=== PATIENT | male | born 1970 | race Caucasian/White ===

== ENCOUNTER → 2017-03-16 | Outpatient (CLI) | payer OTHER ==
[~2017-03-16] MED LIST: AMT50 PO; BUPR20DI TOP; DPTSTI200; FENO1TAB PO; GADAVIST IV PRN; LISI-725 PO; META1TAB22 PO; OXYC15TA89 PO; OXYC20TA50 PO; PROC1TAB5 PO; SIMV20TA2 PO; VERA120T15 PO; VERA1CAP5 PO
--- NOTE | 2017-03-16 19:23 | DIAGNOSTIC IMAGING REPORT ---
MRI OF THE BRAIN WITHOUT AND WITH IV CONTRAST CLINICAL HISTORY: CHRONIC PAIN SYNDROME, UNSPECIFIED COMPARISON STUDY: No previous studies for comparison. TECHNIQUE: Utilizing a 1.5 Margot magnet and dedicated coil, multiplanar, multiecho imaging of the brain was performed pre and postcontrast administration. IV administration of 12.5 mL of Gadavist contrast was uneventful. FINDINGS: Diffusion-weighted images are normal. Extensive postoperative changes to the sinuses. Signal characteristics of the cerebellar as well as cerebral hemispheres appear unremarkable. No evidence for abnormal postcontrast enhancement. IMPRESSION: 1. Negative MRI brain. 2. Postoperative changes to the sinuses. Electronically signed by: Wood Capellan M.D. 03/16/2017 7:21 PM Dictated Date/Time: 03/16/2017 7:19 PM
== END | disposition home or self-care (01) ==
LOC: C.MRI 17:22
PROVIDERS: ATTEND Nurse Practitioner Family
DX: G89.4 Chronic pain syndrome (principal); H54.7 Unspecified visual loss; G43.909 Migraine, unspecified, not intractable, without status migrainosus

== ENCOUNTER 2020-05-26 07:55 | Inpatient (IN) ==
--- NOTE | 2020-05-12 16:21 | PAT Medication Instructions ---
Medication Instructions Date of Service May 12, 2020 Home Medications Medication Instructions Recorded cyclobenzaprine 10 mg PO Q8H PRN #21 tab 10/30/18 ascorbic acid (vitamin C) [Vitamin C] 250 mg PO QDL atorvastatin 40 mg PO QAM cyclobenzaprine 10 mg PO Q8H PRN fenofibrate 160 mg PO QAM folic acid 0.8 mg PO QAM lisinopril 20 mg PO QPM testosterone cypionate 1 dose IM DIRECTED Continue as directed testosterone cypionate 1 dose IM DIRECTED (unless surgeon states otherwise; also do not take AM of surgery) STOP taking 48 hours before surgery fenofibrate 160 mg PO QAM DO NOT take the morning of surgery ascorbic acid (vitamin C) [Vitamin C] 250 mg PO QDL cyclobenzaprine 10 mg PO Q8H PRN folic acid 0.8 mg PO QAM Take morning of surgery With a small sip of water, OTHERWISE NOTHING TO EAT OR DRINK AFTER MIDNIGHT: atorvastatin 40 mg PO QAM Take evening before surgery cyclobenzaprine 10 mg PO Q8H PRN (if needed) lisinopril 20 mg PO QPM Other Notes If you have any questions please call us at [phone] or [phone] or [phone] or [phone]
--- NOTE | 2020-05-13 14:37 | Anesthesiology Consultation ---
Date of Service May 13, 2020 Assessment & Plan (1) Encounter for pre-operative examination: Chart Review Chart Review: Pending: Refer to Additional Notes / Consult section (pending surgeon ordered PCP clearance scheduled 05/17/preop Covid testing results from 05/21) and Patient seen in Pre Admission Testing Awaiting surgeon ordered PCP clearance scheduled 05/17/20 Per PAT appt on 05/13/20, denies any recent travel. No known Covid positive co ntacts or Covid related symptoms. Scheduled for preop Covid testing 05/21/20.. Educated on importance of self quarantining, social distancing and wearing mask in public both for the patient and household contacts. Teaching & Discussion Pre-Anesthesia Teaching/Discussion Notes: Instructed NPO after midnight before surgery,except medications with 15 cc of water. Medication instructions provided according to the [facility] guidelines. History Surgery Operation Date: 05/26/20 09:35 Proposed Procedures p L3-S1 Decompression and Fusion; Spinal Cord Monitoring - Maciel Gutierrez DO Height/Weight Height: 6 ft 6 in Weight: 134.4 kg Allergies Allergy/AdvReac Type Severity Reaction Status Date / Time iron AdvReac Severe ELEVATES Verified 05/10/20 12:17 LIVER ENZYMES TO DANGEROUS LEVELS lorazepam [From Ativan] AdvReac Severe HALLUCINATI Verified 05/10/20 12:17 ONS morphine AdvReac Severe HALLUCINATI Verified 05/10/20 12:17 ONS ROUGH CLEAR TAPE Allergy Intermediate BLISTERS Uncoded 05/10/20 12:17 SKIN Medications Home Medications Medication Instructions Recorded Confirmed Last Taken ascorbic acid (vitamin C) [Vitamin 250 mg PO QDL 10/30/18 05/10/20 10/30/18 C] atorvastatin 40 mg PO QAM 10/30/18 05/10/20 10/29/18 cyclobenzaprine 10 mg PO Q8H PRN #21 tab 10/30/18 05/10/20 Unknown fenofibrate 160 mg PO QAM 10/30/18 05/10/20 10/30/18 folic acid 0.8 mg PO QAM 10/30/18 05/10/20 10/30/18 lisinopril 20 mg PO QPM 10/30/18 05/10/20 10/30/18 testosterone cypionate 1 dose IM DIRECTED 10/30/18 05/10/20 Unknown gabapentin 100 mg PO TID 05/13/20 05/13/20 Unknown Past Medical History Medical History (Updated 05/13/20 @ 14:58 by Celina Lee PA-C) Chronic pain History of depression Pain aggrevates depression and anxiety- currently stable and controlled History of migraine Stable- follows with neuro for Botox HTN (hypertension) Hyperlipemia Osteoarthritis 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 Exercise / Class Metabolic Activity II 4-5 Yardwork/Stairs/Walk up hill (one flight of stairs- no chest pain or SOB) Past Family History Family History Other No family history of adverse response to anesthesia Past Surgical History Surgical History History of esophagogastroduodenoscopy (EGD) History of hip replacement Rt History of knee replacement BL History of partial nephrectomy History of repair of hiatal hernia History of sinus surgery removal of benign mass History of surgery on left wrist Fusion History of tonsillectomy and adenoidectomy Past Anesthesia History No Hx of Anesthesia Complications and No Family Hx of Anesthesia Complications History of PONV No Hx of PONV and No Hx of Motion Sickness Social History Smoking Status: Former smoker Do You Dip or Chew Tobacco: No Smoking End Date: 4 years ago Hx Alcohol Use: No Hx Substance Use: No substance use type: does not use Review of Systems Snoring- no witnessed apnea- no hx of sleep study. Increased back pain can cause SOB at times- no SOB with exertion or at rest without back pain Patient denies chest pain, dyspnea on exertion, reflux, cough, wheezing, palpitations. No hx of seizures, stroke, [place]. No hx of blood clots or blood transfusions Physical Exam Vital Signs VITALS BP 147/90 P 74 TEMP 97.5 SP02 97% RESP 16 Constitutional no acute distress ENMT Mouth: no TMJ clicking Thyromental Distance: < 3.5 Finger Breadths (3.0) Mallampati Class: III Full upper denture Partial lower denture Neck + thick neck; neck extension not limited Respiratory normal respiratory effort; no respiratory distress Auscultation: lungs clear to auscultation bilaterally; no wheezes Cardiovascular Rate/Rhythm: regular rate and regular rhythm Heart Sounds: no murmur Vessels: no carotid bruit Musculoskeletal Spine: no pain with cervical ROM Neurologic moves all extremities Psychiatric Orientation: alert Testing Laboratory Results PT 10.7 Seconds (9.0-12.0) 05/13/20 14:51 INR 1.0 (0.9-1.1) 05/13/20 14:51 APTT 24.9 Seconds (21.0-31.0) 05/13/20 14:51 Blood Type A Positive 05/13/20 14:51 Antibody Screen NEGATIVE 05/13/20 14:51 04/29/2020 = WBC: 5.81 H/H: 12.7/38.8 PLATELETS: 255 SODIUM: 142 POTASSIUM: 4.0 CHLORIDE: 103 CO2: 28 BUN: 13 CREATININE: 1.0 GLUCOSE: 106 UA: Negative. Urine culture shows less than 10,000 colonies/mLmixed skin luh Electrocardiogram Date: 05/13/20 Findings: + NSR @ (73) Chest X-Ray Date: 05/13/20 Findings: + NAD Mild elevation of the left hemidiaphragm. There are left basilar atelectatic changes.
--- NOTE | 2020-05-13 15:30 | XRay Report ---
XR chest Pre-admission PA/Lat CLINICAL HISTORY: Preoperative chest COMPARISON STUDY: No previous studies for comparison. FINDINGS: The heart is normal in size. There is mild elevation left hemidiaphragm. There are left bas ilar atelectatic changes. There is no failure. There is no focal pulmonary consolidation. There are n o pleural effusions.[ IMPRESSION: Mild elevation of the left hemidiaphragm. No active disease in the chest. ACT 112: Negative or not required by law. Electronically signed by: Gui Vogel M.D. 05/13/2020 3:29 PM
[2020-05-13 15:59] LABS: Partial Thromboplastin Ratio 0.9; Partial Thromboplastin Time 24.9 Seconds (21.0-31.0); Prothrombin Time 10.7 Seconds (9.0-12.0)
--- NOTE | 2020-05-14 05:56 | Electrocardiogram Report ---
Test Reason : Blood Pressure : / mmHG Vent. Rate : 073 BPM Atrial Rate : 073 BPM P-R Int : 194 ms QRS Dur : 094 ms QT Int : 378 ms P-R-T Axes : 040 -02 020 degrees QTc Int : 416 ms Normal sinus rhythm Normal ECG No previous ECGs available Confirmed by Lalo Covarrubias ([id number]) on 05/14/2020 5:55:58 AM Referred By: Maciel Gutierrez Confirmed By:Lalo Covarrubias
[~2020-05-26 07:55] MED LIST changes: +ACETAMINOPHEN 500 MG TAB PO SCH; -AMT50 PO; -BUPR20DI TOP; +CEFAZOLIN 3000MG 72.5 ML IV SCH; +CeleBREX 200 MG CAP PO SCH; -DPTSTI200; -FENO1TAB PO; +GABAPENTIN 300 MG CAP PO SCH; +GABAPENTIN 600 MG DOSE PO SCH; -GADAVIST IV PRN; -LISI-725 PO; +LR 15ML/HR IV SCH; -META1TAB22 PO; -OXYC15TA89 PO; -OXYC20TA50 PO; -PROC1TAB5 PO; -SIMV20TA2 PO; -VERA120T15 PO; -VERA1CAP5 PO
[2020-05-26] MEDS ORDERED: MIDAZOLAM HCL 1 MG/ML 2ML VIAL ONE (08:38)
[2020-05-26] MEDS ORDERED: PROPOFOL IV EMULSION 10 MG/ML 20 ML VIAL IV ONE (08:38)
[2020-05-26] MEDS ORDERED: LIDOCAINE HCL 2% 2 ML VIAL/AMP(20MG/ML) INFIL ONE (08:38)
[2020-05-26] MEDS ORDERED: ROCURONIUM BROMIDE 10 MG/ML 5 ML VIAL IV ONE (08:38)
[2020-05-26] MEDS ORDERED: fentaNYL citrate 100 MCG/2 ML VIAL ONE (08:38)
[2020-05-26] MEDS ORDERED: ONDANSETRON INJ 2 MG/ML 2 ML VIAL ONE (08:38)
--- NOTE | 2020-05-26 09:06 | History & Physical Bridge Note ---
Date of Service May 26, 2020 History & Physical Bridge Note I have examined the patient, reviewed the History & Physical and in the interval since the performance of the History & Physical I have noted the following changes of clinical significance: no changes noted
--- NOTE | 2020-05-26 09:07 | History & Physical Report ---
Date of Service May 26, 2020 Assessment & Plan (1) Neurogenic claudication due to lumbar spinal stenosis: Admission and Anticipated Discharge Date Admission Date: L3-S1 decompression fusion History of Present Illness Chief Complaint: Back and bilateral leg pain Primary Care Provider: Otto Dobson MD This is a 49-year-old male who presents with chronic persistent back and bilateral leg pain. Failing extensive course of nonoperative care is here for surgical invention. Allergies Allergy/AdvReac Type Severity Reaction Status Date / Time iron AdvReac Severe ELEVATES Verified 05/26/20 08:40 LIVER ENZYMES TO DANGEROUS LEVELS lorazepam [From Ativan] AdvReac Severe HALLUCINATI Verified 05/26/20 08:40 ONS morphine AdvReac Severe HALLUCINATI Verified 05/26/20 08:40 ONS ROUGH CLEAR TAPE Allergy Intermediate BLISTERS Uncoded 05/26/20 08:40 SKIN Home Medications Home Medications Medication Instructions Recorded Confirmed Type ascorbic acid (vitamin C) [Vitamin 250 mg PO QDL 10/30/18 05/26/20 History C] atorvastatin 40 mg PO QAM 10/30/18 05/26/20 History fenofibrate 160 mg PO QAM 10/30/18 05/26/20 History folic acid 0.8 mg PO QPM 10/30/18 05/26/20 History lisinopril 20 mg PO QPM 10/30/18 05/26/20 History testosterone cypionate 1 dose IM DIRECTED 10/30/18 05/26/20 History gabapentin 100 mg PO TID 05/13/20 05/26/20 History Past Med/Surg History Medical History (Updated 05/26/20 @ 09:07 by Maciel Gutierrez DO) Chronic pain History of depression Pain aggrevates depression and anxiety- currently stable and controlled History of migraine Stable- follows with neuro for Botox HTN (hypertension) Hyperlipemia Osteoarthritis 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 Surgical History History of esophagogastroduodenoscopy (EGD) History of hip replacement Rt History of knee replacement BL History of partial nephrectomy History of repair of hiatal hernia History of sinus surgery removal of benign mass History of surgery on left wrist Fusion History of tonsillectomy and adenoidectomy Family History Other No family history of adverse response to anesthesia Social History Smoking Status: Former smoker Smoking End Date: 4 years ago; Second Hand Exposure: No; Do You Dip or Chew Tobacco: No; Tobacco Cessation Education Requested by Patient: No Hx Alcohol Use: No Hx Substance Use: No Preferred Language: Wolof Communication Ability: Effective Saturation Diver Required: No Beliefs That Will Affect Care: None Current Living Situation: Significant Other Current Living Situation Comment: fiance Feels Safe at Home: Yes Safety Concerns: Feels Safe At This Time Physical Exam Physical Exam: Patient is alert and oriented neurologically intact. Heart regular rate and rhythm. Lungs clear to auscultation. Results & Data ([facility]) Vital Signs (Past 12 Hours) Vital Signs Temp Pulse Resp BP Pulse Ox 05/26/20 08:29 36.8 C 77 18 159/89 H 95
[2020-05-26] MEDS ORDERED: PROMETHAZINE HCL 6.25 MG in SODIUM CHLORIDE 0.9% 50 ML IV PRN (09:19)
[2020-05-26] MEDS ORDERED: LABETALOL HCL IV 5 MG/ML 20ML IV PRN (09:19)
[2020-05-26] MEDS ORDERED: ONDANSETRON INJ 2 MG/ML 2 ML VIAL IV PRN (09:19)
[2020-05-26] MEDS ORDERED: ATROPINE SULFATE 0.1 MG/ML 10ML SYR IV PRN (09:19)
[2020-05-26] MEDS ORDERED: GABAPENTIN 300 MG CAP ONE (09:29)
[2020-05-26] MEDS ORDERED: BACITRACIN INJ 50,000 UNIT VIAL ONE (09:33)
[2020-05-26] MEDS ORDERED: BUPIVACAINE/EPINEPHRINE 0.25% 1:200,000 30 ML VIAL ONE (09:33)
[2020-05-26] MEDS ORDERED: FLOSEAL HEMOSTATIC MATRIX 10ML TOP ONE (10:17)
[2020-05-26] MEDS ORDERED: DEXAMETHASONE SOD INJ 4 MG/ML VIAL ONE (12:53)
[2020-05-26] MEDS ORDERED: GLYCOPYRROLATE 0.2 MG/ML VIAL ONE (12:53)
[2020-05-26] MEDS ORDERED: NEOSTIGMINE METHYLSULFATE 1 MG/ML 10ML VIAL ONE (12:53)
--- NOTE | 2020-05-26 12:55 | Operative Report ---
Post Operative Report Pre & Post Diagnosis Operation Date: 05/26/20 09:35 Pre-Op Diagnosis: Spinal Stenosis Post-Op Diagnosis: Spinal Stenosis I identified the patient and participated in the time-out.: Yes Procedure Operation Date: 05/26/20 09:35 Actual Procedures 1. Lumbar decompression with bilateral medial facetectomies and foraminotomies L2-3, L3-4, L4-5 and L5-S1. #2 posterior spinal fusion L3-4, L4-5, L5-S1. #3 placement posterior segmental instrumentation L3-S1. #4 interbody fusion L3-4, L4-5 and L5-S1. #5 placement of Spira titanium cage 10 x 26 mm at L3-4, 10 x 26 mm at L4-5 and 9 x 26 mm at L5-S1. #6 placement of locally harvested morselized autograft in the posterior gutters. #7 placement infuse collagen sponge, master graft in the posterior gutters and ostial amp and interbody space. Surgeon Maciel Gutierrez, DO [facility] Estimated Blood Loss 600 Findings See Below Patient is 6 foot 6 inches tall weighing over 129 kg with a BMI in excess of 33. Patient's body habitus combined with an EBL of over 600 cc created significant technical difficulty. He required her deepest retractors and longest instruments in order to perform his procedure. This added at least 50% increase in the operative time. Specimens None Indications This is a 49-year-old male who presents with significant back and leg pain after failing course of nonoperative care is here for surgical intervention. Description of Procedure Patient was met with identified informed consent obtained. Patient was then taken to the operative suite underwent an patient placed in a prone position on the Jonn table on top of the Palmer frame. All bony prominences well-padded eyes inspected to ensure no external pressure placed upon the. This point the lumbar spine was prepped and draped in normal sterile fashion. Sharp dissection with the assistance of Bovie cautery was performed down to and exposing the lamina transverse processes of L3-L4-L5 and sacral ala bilaterally. From caudal cephalad fashion complete laminectomy of L5 L4 L3 partial laminectomy of L2 was performed including bilateral medial facetectomies and foraminotomies addressing severe spinal stenosis. Pedicle screws were then placed in L3-L4-L5 and the S1 levels bilaterally with assistance of fluoroscopy and the proper sized laila placed. By way of a trans-foramen approach on the right a complete discectomy L5-S1 was performed endplates curetted to subcortical bleeding bone and a 9 x 26 mm titanium cage filled with osteo-bone graft tapped in position. Then proceeded to L4-[address] of a transforaminal portion right complete discectomy performed endplates coated to subcortical bleeding bone and a 10 x 26 mm titanium cage filled with osteo-bone graft tapped in position. Lastly approached L3-4. Again by way of a transforaminal portion right complete discectomy performed endplates coated to subcortical bleeding bone and a 10 x 26 mm titanium cage filled osteo-bone graft tapped in position. Rods were then compressed locked into final position bilaterally. The transverse processes of L3-L4-L5 and sacral ala were then burred to subcortical bleeding bone. Infuse collagen sponge master graft local autograft was placed in the posterior gutters. 15 round LUDIN drain inserted. Incision was then closed with 1 Vicryl in the fascia 2-0 Vicryl subcutaneously and 4 Monocryl for final skin closure. Steri-Strip sterile dressings placed. Patient waken taken to PACU stable condition. Please note spinal cord monitoring was utilized at the procedure and no changes noted. Lastly Miranda Valencia was present at the entire surgery involved the patient positioning complex portions of the surgery and final skin closure. I attest to the content of the Intraoperative Record and any orders documented therein. Any exceptions are noted below.
--- NOTE | 2020-05-26 13:12 | Fluoroscopy Report ---
FL lumbar spine 2-3V CLINICAL HISTORY: L3-S1 DECOMPRESSION AND FUSION COMPARISON STUDY: None. FLUOROSCOPY TIME: 39 seconds. FLUOROSCOPIC IMAGES: 3 FINDINGS: These images demonstrate L3-L4, L4-L5 and L5-S1 discectomies with interbody spacer placemen t. Posterior decompression is noted with bilateral pedicle screws at the L3, L4, L5 and S1 levels wit h interconnecting rods. Hardware is intact. IMPRESSION: Fluoroscopy provided for L3-S1 discectomies, posterior decompression and fusion. ACT 112: Negative or not required by law. Electronically signed by: Arnie May M.D. 05/26/2020 1:11 PM
[2020-05-26] MEDS: HYDROmorphone INJ 1 MG/ML SYRINGE IV PRN ×12 (13:27→17:09)
--- NOTE | 2020-05-26 13:58 | Anesthesiology Progress Note ---
Date of Service May 26, 2020 Anesthesia Post Procedure Vital Signs Vital Signs: Temp Pulse Pulse Resp BP BP Pulse Ox 05/26/20 13:35 53 L 14 127/69 100 05/26/20 13:25 54 L 12 130/81 100 05/26/20 13:15 36.2 C L 56 L 19 128/61 100 05/26/20 08:29 36.8 C 77 18 159/89 H 95 Pain Intensity Back: Pain Intensity: 8 Transfer of Care Handoff Completed per policy Notes Mental Status: alert / awake / arousable Patient Amnestic to Procedure: Yes Nausea / Vomiting: adequately controlled Pain: adequately controlled Airway Patency, RR, SpO2: stable & adequate BP & HR: stable & adequate Hydration State: stable & adequate Anesthetic Complications: no major complications apparent
[2020-05-26] MEDS ORDERED: HYDROmorphone INJ 1 MG/ML SYRINGE IV PRN (14:54)
[2020-05-26] MEDS ORDERED: MAGNESIUM HYDROXIDE SUSP 30 ML UDC PO PRN (15:36)
[2020-05-26] MEDS ORDERED: SOD PHOSPHATE/SOD BIPHOSPHATE ENEMA 132 ML BTL PR PRN (15:36)
[2020-05-26] MEDS ORDERED: bisacodyL 10 MG SUPP PR PRN (15:36)
[2020-05-26] MEDS ORDERED: PROMETHAZINE HCL 12.5 MG in SODIUM CHLORIDE 0.9% 50 ML IV PRN (15:36)
[2020-05-26] MEDS ORDERED: DO NOT ADMINISTER PNEUMOCOCCAL VACCINE PRN (15:36)
[2020-05-26] MEDS ORDERED: NALOXONE HCL 0.4 MG/1 ML VIAL/CARP IV PRN (15:36)
[2020-05-26] MEDS ORDERED: ALUMINUM/MAGNESIUM SUSP 30 ML UDC PO PRN (15:36)
[2020-05-26] MEDS ORDERED: METOCLOPRAMIDE HCL INJ 5 MG/ML 2 ML VIAL IV PRN (15:36)
[2020-05-26] MEDS ORDERED: DO NOT ADMINISTER FLU VACCINE PRN (15:36)
[2020-05-26] MEDS ORDERED: ACETAMINOPHEN 1,000 MG/100 ML VIAL IV PRN (15:36)
[2020-05-26] MEDS ORDERED: FAMOTIDINE 20 MG TAB PO PRN (15:36)
[2020-05-26] MEDS: KETOROLAC 30 MG/ML VIAL IV SCH ×2 (16:22→22:14)
[2020-05-26] MEDS: LACTATED RINGER'S 1,000 ML IV SCH ×2 (16:22→22:14)
[2020-05-26] MEDS: OXYCODONE HCL IR 5 MG TAB (IMMEDIATE RELEASE) PO PRN ×2 (16:32→23:48)
[2020-05-26] MEDS: GABAPENTIN 100 MG CAP PO SCH ×2 (16:32→21:08)
[2020-05-26] MEDS: ONDANSETRON 4 MG OD TAB PO PRN (17:09)
--- NOTE | 2020-05-26 17:25 | Consultation ---
Date of Consultation May 26, 2020 Assessment & Plan (1) Status post lumbar surgery: Post op day# 0 S/P decompression and fusion L3-S1 by Dr Gutierrez EBL#600ml Post op having back pain -pain management per ortho -wound management per ortho -PT/OT as appropriate -DVT prophylaxis per ortho -incentive spirometry -monitor H&H for acute blood loss anemia; Pre-op Hgb: 12.7 (2) HTN (hypertension): BP: 160/92. Pt having pain and receiving pain medications currently. Anticipate BP will decrease after pain control -Continue lisinopril with holding parameters -Continue verapamil (pt on for cluster MIXON) (3) Hyperlipemia: continue home dose atorvastatin (4) History of migraine: H/O Migraine and Cluster MIXON. Follows with neurology. Gets Botox injections -Continue Verapamil DVT Prophylaxis -SCDs per ortho Disposition per primary service Follows with Dr Dobson for routine care Pt was seen and care coordinated with Dr Farmer. See addendum Thank you for this consultation. We will follow the patient with you during their hospital stay. You can reach a [facility] via pager @ [phone]. Supervising Physician Co-Signing Physician Notes I, Dr. Trevor Farmer, have seen and examined the patient Patrick Albarran with physician bus assistant and would like to comment that On Physical exam General: no acute distress HEENT: extraoccular movements intact Heart: regular heart rate Lungs: clear to auscultation bilaterally Abdomen: soft, nontender, positive bowel sounds Back: LUDIN drain to the back Extremities/Neuro: moves all extremities This is a patient who had Spinal Stenosis who had lumbar spine surgery by orthopedic service Dr. Gutierrez on 05/26/2020 and hospitalist medicine being asked for consultation for POST-OP Management -agree with other assessment and plans as per physician bus assistant -pain medications as needed, patients current pain control is okay as per patient -management of hypertension with Lisinopril and verapamil, patient also uses verapamil for history of cluster headaches. -continue home dose atorvastatin -patient to be seen on 05/27/2020 for PT/OT evaluations, follow the labs -My colleague hospitalist Dr. Allen will be following the patient starting on 05/27/2020 History of Present Illness Requesting Physician: Dr Gutierrez Reason for Consultation: Post op medical management Attending Physician: Maciel Gutierrez, DO History of Present Illness Pt is 49 y/o M with PMH HTN, dyslipidemia, migraine, cluster headache seen in medical consultation s/p decompression and fusion L3-S1 today by Dr. Gutierrez. Postop patient having back pain and having some nausea. Patient currently being medicated by nurse at this time. Denies any pain to lower extremities or paresthesias. Has Jiménez cath in place. Denies shortness of breath, chest pain, dizziness, vomiting. Denies fever/chills, diaphoresis, neck pain,palpitations, cough, sore throat, choking, abdominal pain, extremity weakness, extremity edema, rashes. Allergies Allergy/AdvReac Type Severity Reaction Status Date / Time iron AdvReac Severe ELEVATES Verified 05/26/20 08:40 LIVER ENZYMES TO DANGEROUS LEVELS lorazepam [From Ativan] AdvReac Severe HALLUCINATI Verified 05/26/20 08:40 ONS morphine AdvReac Severe HALLUCINATI Verified 05/26/20 08:40 ONS ROUGH CLEAR TAPE Allergy Intermediate BLISTERS Uncoded 05/26/20 08:40 SKIN Home Medications Home Medications Medication Instructions Recorded Confirmed Type ascorbic acid (vitamin C) [Vitamin 250 mg PO QDL 10/30/18 05/26/20 History C] atorvastatin 40 mg PO QAM 10/30/18 05/26/20 History folic acid 0.8 mg PO QPM 10/30/18 05/26/20 History lisinopril 20 mg PO DAILY 10/30/18 05/26/20 History testosterone cypionate 1 dose IM DIRECTED 10/30/18 05/26/20 History gabapentin 100 mg PO TID 05/13/20 05/26/20 History verapamil 80 mg PO TID 05/26/20 05/26/20 History Patient History Medical History (Updated 05/26/20 @ 17:[address] PA-C) Chronic pain History of depression Pain aggrevates depression and anxiety- currently stable and controlled History of migraine Stable- follows with neuro for Botox HTN (hypertension) Hyperlipemia Osteoarthritis 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 Surgical History (Updated 05/26/20 @ 17:[address] PA-C) History of esophagogastroduodenoscopy (EGD) History of hip replacement Rt History of knee replacement BL History of partial nephrectomy History of repair of hiatal hernia History of sinus surgery removal of benign mass History of surgery on left wrist Fusion History of tonsillectomy and adenoidectomy Family History Other No family history of adverse response to anesthesia Social History Smoking Status: Former smoker Smoking End Date: 4 years ago; Second Hand Exposure: No; Do You Dip or Chew Tobacco: No; Tobacco Cessation Education Requested by Patient: No Hx Alcohol Use: No Hx Substance Use: No Preferred Language: Thai Communication Ability: Effective Corrections Lieutenant Required: No Beliefs That Will Affect Care: None Current Living Situation: Significant Other Current Living Situation Comment: fiance Feels Safe at Home: Yes Safety Concerns: Feels Safe At This Time Review of Systems Review of Systems: All systems reviewed & are unremarkable except as noted in HPI & below Physical Exam Physical Exam: General: mild distress secondary to back pain, WDWN Head: normocephalic, atraumatic Eyes: conjunctiva non-injected, anicteric ENT: normal inspection external ears, nose, mucous membranes moist Neck: supple, trachea midline Lungs: clear, no respiratory distress, no wheezing/rhonchi/rales CV: RRR, no murmur,no pretibial edema Abd: normal BS, soft, non-tender Back: surgical dressing in place, LUDIN drain in place with serosanguineous drainage Ext: no cyanosis, no calf tenderness; bilateral pedal pushes and pulse intact, distal pulses intact Neuro: A&O x 3, no focal deficits noted, normal affect Skin: warm, dry Results & Data ([facility]) Vital Signs (Past 12 Hours) Vital Signs Temp Pulse Pulse Resp BP BP Pulse Ox 05/26/20 16:36 36.9 C 72 16 160/92 H 98 05/26/20 16:08 36.8 C 72 17 160/89 H 97 05/26/20 15:37 36.7 C 61 16 148/76 H 97 05/26/20 15:15 63 12 140/77 97 05/26/20 15:05 72 14 140/73 95 05/26/20 14:55 65 15 157/72 H 99 05/26/20 14:45 64 12 132/76 97 05/26/20 14:35 54 L 13 140/74 97 05/26/20 14:25 36.9 C 56 L 20 133/69 95 05/26/20 14:15 52 L 13 146/75 H 97 05/26/20 14:05 65 12 159/72 H 95 05/26/20 13:55 52 L 13 141/85 H 97 05/26/20 13:45 58 L 17 154/70 H 100 05/26/20 13:35 53 L 14 127/69 100 05/26/20 13:25 54 L 12 130/81 100 05/26/20 13:15 36.2 C L 56 L 19 128/61 100 05/26/20 08:29 36.8 C 77 18 159/89 H 95
[2020-05-26] MEDS: CEFAZOLIN 2000MG 2,000 MG/15 ML SYR IV SCH (17:57)
[2020-05-26] MEDS: ONDANSETRON INJ 2 MG/ML 2 ML VIAL IV PRN (19:44)
[2020-05-26] MEDS ORDERED: lisinopriL 20 MG TAB PO SCH (21:00)
[2020-05-26] MEDS: VERAPAMIL HCL 40 MG TAB PO SCH (21:07)
[2020-05-26] MEDS: FOLIC ACID 400 MCG TAB PO SCH (21:08)
[2020-05-26] MEDS: DOCUSATE SODIUM/SENNA 50/8.6MG TAB PO SCH (21:08)
[2020-05-26] MEDS: ACETAMINOPHEN 500 MG TAB PO PRN (23:47)
[2020-05-27] MEDS: ONDANSETRON INJ 2 MG/ML 2 ML VIAL IV PRN (00:45)
[2020-05-27] MEDS: HYDROmorphone INJ 0.5 MG/0.5 ML SYR IV PRN ×2 (00:59→09:07)
[2020-05-27] MEDS: CEFAZOLIN 2000MG 2,000 MG/15 ML SYR IV SCH (01:03)
[2020-05-27] MEDS: KETOROLAC 30 MG/ML VIAL IV SCH ×2 (05:58→10:19)
[2020-05-27] MEDS: OXYCODONE HCL IR 5 MG TAB (IMMEDIATE RELEASE) PO PRN ×4 (05:58→21:54)
[2020-05-27] MEDS: POLYETHYLENE (MIRALAX) 17 GM PACK PO SCH ×4 (06:02→23:45)
[2020-05-27 07:13] LABS: Basophils # (auto) 0.01 K/uL (0-0.2); Basophils % (auto) 0.1 %; Hematocrit (blood only) 33.8 % (42-52); Hemoglobin 10.6 g/dL (14.0-18.0); Immature Granulocytes # (auto) 0.04 K/uL (0.00-0.02); Immature Granulocytes % (auto) 0.3 %; Lymphocytes # (auto) 0.97 K/uL (1.2-3.4); Lymphocytes % (auto) 7.7 %; Mean Corpuscular Hgb Conc 31.4 g/dL (32-36); Mean Corpuscular Volume 86.2 fL (80-100); Mean Platelet Volume 10.1 fL (7.4-10.4); Monocytes # (auto) 0.85 K/uL (0.11-0.59); Monocytes % (auto) 6.8 %; Neutrophils # (auto) 10.72 K/uL (1.4-6.5); Neutrophils % (auto) 85.1 %; Platelet Count 242 K/uL (130-400); RDW Coefficient of Variation 14.3 % (11.5-14.5); RDW Standard Deviation 44.9 fL (36.4-46.3); Red Blood Count 3.92 M/uL (4.7-6.1); White Blood Count 12.59 K/uL (4.8-10.8)
[2020-05-27 07:36] LABS: BUN Creatinine Ratio 11.6 (10-20); Calcium 7.9 mg/dl (8.5-10.1); Est GFR (African American) 90.5; Est GFR (Non-African American) 78.1; Potassium 3.6 mmol/L (3.5-5.1)
[2020-05-27] MEDS: GABAPENTIN 100 MG CAP PO SCH ×3 (08:05→21:16)
[2020-05-27] MEDS: VERAPAMIL HCL 40 MG TAB PO SCH ×3 (08:05→21:16)
[2020-05-27] MEDS: ATORVASTATIN 40 MG TAB PO SCH (08:05)
[2020-05-27] MEDS: lisinopriL 20 MG TAB PO SCH (08:05)
--- NOTE | 2020-05-27 08:07 | Orthopedic Progress Note ---
Date of Service May 27, 2020 Assessment & Plan (1) Neurogenic claudication due to lumbar spinal stenosis: Admission and Anticipated Discharge Date Admission Date: May 26, 2020 At this time initiate physical therapy monitor LUDIN operatively discharge home in the next few days. Subjective Back pain controlled leg symptoms markedly improved. Physical Exam Physical Exam: Patient has good strength testing was comfortable. Results & Data ([facility]) Vital Signs (Past 12 Hours) Vital Signs Temp Pulse Resp BP BP Pulse Ox 05/27/20 07:18 36.9 C 71 18 115/70 96 05/27/20 02:57 36.9 C 65 18 105/60 94 05/26/20 23:35 36.9 C 83 18 136/71 95 05/26/20 21:04 60 138/75 95
[2020-05-27] MEDS: TRAMADOL HCL 50 MG TABLET PO PRN ×3 (08:13→23:43)
[2020-05-27] MEDS ORDERED: FENOFIBRATE NANOCRYSTALLIZED 145 MG TABLET PO SCH (09:00)
[2020-05-27] MEDS: DEXAMETHASONE SOD PHOSPHATE 8 MG in SYRINGE 0 ML IV SCH (09:13)
--- NOTE | 2020-05-27 09:14 | Hospitalist Progress Note ---
Date of Service May 27, 2020 Assessment & Plan (1) Status post lumbar surgery: Post op day# 1 S/P decompression and fusion L3-S1 by Dr Gutierrez -pain management per ortho -wound management per ortho -PT/OT as appropriate -DVT prophylaxis per ortho -incentive spirometry -monitor H&H for acute blood loss anemia; Pre-op Hgb: 12.7. Hgb 10.6 today (2) HTN (hypertension): Normotensive at 115/70. Continue lisinopril and verapamil (3) Hyperlipemia: Continue home dose atorvastatin (4) History of migraine: H/O Migraine and Cluster MIXON. Follows with neurology. Gets Botox injections -Continue Verapamil DVT Prophylaxis -SCDs per ortho Disposition per primary service Follows with Dr Dobson for routine care Pt was seen and care coordinated with Dr. Mosley. See addendum Thank you for this consultation. We will follow the patient with you during their hospital stay. You can reach a member of the [facility] Team 16/04 via pager @ [phone]. Admission and Anticipated Discharge Date Admission Date: May 26, 2020 Supervising Physician Co-Signing Physician Notes Patient is seen and examined at bedside back pain at surgical site is controlled with medications Denies chest pain, shortness of breath, dizziness, nausea, abdominal pain No BM yet Doing well postop Physical Exam: Vitals signs as noted above General Appearance:Moderately built and nourished, no apparent distress Head: normocephalic, Atraumatic Eyes: normal inspection, EOMI Neck: supple, Trachea midline Respiratory/Chest: Normal breath sounds, CTA Cardiovascular: S1, S2, No murmur Abdomen/GI:Soft, Non tender, Bowel sounds present Back:Surgical site in dressing, +Drain Extremities/Musculoskelatal:normal inspection, no edema Neurologic/Psych:AAOX3, grossly no focal neurological deficits Skin: normal color, warm Spinal stenosis S/P lumbar decompression surgery L3-S1 by Dr. Gutierrez Acute blood loss anemia Monitor CBC, transfuse PRBC as needed Pain control, wound care, DVT prophylaxis as per primary team Continue bowel regimen to prevent constipation Continue incentive spirometry Activity as per primary team HTN Blood pressure stable Continue lisinopril, verapamil Monitor I personally reviewed the record. Patient is interviewed and examined at bedside. Patient's care is coordinated with Narda Ceasar PA-C. Please refer to the documentation above for details of patient's presentation and for discussion of other issues. Subjective Patient seen and examined in 311-1. Denies surgical site pain. Tolerating diet well, no nausea or vomiting. Denies lightheadedness, visual changes, chest pain or SOB. No abdominal pain. Jiménez catheter just removed- monitor urine output. No flatus or BM yet. Review of Systems Review of Systems: At least ten systems reviewed and negative except as noted in the HPI. Physical Exam Physical Exam: General Appearance: WD/WN, vitals as above, pleasant, conversing easily Head: normocephalic, atraumatic Eyes: normal inspection, PERRL ENT: oropharynx normal Neck: normal visual inspection, trachea midline, no thyromegaly Respiratory: normal respiratory effort, lungs clear to auscultation, no wheeze, rales, rhonchi. No accessory muscle use Cardiovascular: regular rate, rhythm, no murmur, normal peripheral pulses, no BLE edema Abdomen/GI: normal bowel sounds, soft, nontender, no hepatosplenomegaly Extremities/Musculoskeletal: + Lumbosacral surgical dressing, LUDIN drain visualized with small serosanguineous output. No cyanosis or clubbing, extremities motor strength 5/5 Neurologic: PERRL, no dysarthria, CN's II-XI intact bilaterally and moves all extremities Psychiatric: A+Ox3, euthymic affect Skin: no rashes, normal color, warm/dry Results & Data Results & Data ([facility]) Vital Signs (Past 12 Hours) Vital Signs Temp Pulse Resp BP Pulse Ox 05/27/20 07:18 36.9 C 71 18 115/70 96 05/27/20 02:57 36.9 C 65 18 105/60 94 05/26/20 23:35 36.9 C 83 18 136/71 95 Laboratory Results Short CBC 05/27/20 Range/Units 06:40 WBC 12.59 H (4.8-10.8) K/uL Hgb 10.6 L (14.0-18.0) g/dL Hct 33.8 L (42-52) % Plt Count 242 (130-400) K/uL BMP 05/27/20 06:40 Sodium 137 Potassium 3.6 Chloride 102 Carbon Dioxide 28 BUN 13 Creatinine 1.11 Glucose 124 H Calcium 7.9 L
[2020-05-27] MEDS: ONDANSETRON 4 MG OD TAB PO PRN ×3 (09:18→21:54)
[2020-05-27] MEDS: HYDROmorphone INJ 1 MG/ML SYRINGE IV PRN (14:20)
[2020-05-27] MEDS: FOLIC ACID 400 MCG TAB PO SCH (21:16)
[2020-05-27] MEDS: DOCUSATE SODIUM/SENNA 50/8.6MG TAB PO SCH (21:16)
[2020-05-28] MEDS: OXYCODONE HCL IR 5 MG TAB (IMMEDIATE RELEASE) PO PRN ×6 (03:33→23:09)
[2020-05-28] MEDS: HYDROmorphone INJ 0.5 MG/0.5 ML SYR IV PRN (04:27)
[2020-05-28] MEDS: POLYETHYLENE (MIRALAX) 17 GM PACK PO SCH ×4 (04:30→23:33)
[2020-05-28] MEDS: TRAMADOL HCL 50 MG TABLET PO PRN ×4 (05:02→21:53)
[2020-05-28 06:40] LABS: Hematocrit (blood only) 32.5 % (42-52); Mean Corpuscular Hgb Conc 30.8 g/dL (32-36); Mean Corpuscular Volume 87.6 fL (80-100); Mean Platelet Volume 10.5 fL (7.4-10.4); Platelet Count 241 K/uL (130-400); RDW Coefficient of Variation 14.3 % (11.5-14.5); RDW Standard Deviation 45.6 fL (36.4-46.3); Red Blood Count 3.71 M/uL (4.7-6.1); White Blood Count 12.45 K/uL (4.8-10.8)
[2020-05-28 07:17] LABS: BUN Creatinine Ratio 10.3 (10-20); Calcium 8.4 mg/dl (8.5-10.1); Creatinine Clr Calc Pharmacy 143.7 ml/min; Est GFR (African American) 109.3; Est GFR (Non-African American) 94.3; Magnesium 2.2 mg/dl (1.8-2.4); Potassium 4.3 mmol/L (3.5-5.1)
[2020-05-28] MEDS: ATORVASTATIN 40 MG TAB PO SCH (07:33)
[2020-05-28] MEDS: lisinopriL 20 MG TAB PO SCH (07:33)
[2020-05-28] MEDS: VERAPAMIL HCL 40 MG TAB PO SCH ×3 (07:34→21:34)
[2020-05-28] MEDS: DEXAMETHASONE SOD PHOSPHATE 8 MG in SYRINGE 0 ML IV SCH (07:34)
[2020-05-28] MEDS: GABAPENTIN 100 MG CAP PO SCH ×3 (07:34→21:34)
[2020-05-28] MEDS: ONDANSETRON 4 MG OD TAB PO PRN ×2 (08:38→19:15)
--- NOTE | 2020-05-28 10:20 | Orthopedic Progress Note ---
Date of Service May 28, 2020 Assessment & Plan (1) Neurogenic claudication due to lumbar spinal stenosis: Admission and Anticipated Discharge Date Admission Date: At this time we will continue physical therapy monitor his LUDIN output anticipate discharge home possibly Sunday or Sunday. Subjective Patient complaining of back pain leg symptoms markedly improved. Physical Exam Physical Exam: Patient has good strength testing appears comfortable. Results & Data ([facility]) Vital Signs (Past 12 Hours) Vital Signs Temp Pulse Resp BP Pulse Ox 05/28/20 06:41 36.9 C 69 14 144/70 H 93 05/27/20 22:53 37.0 C 71 14 135/67 94
--- NOTE | 2020-05-28 13:21 | Hospitalist Progress Note ---
Date of Service May 28, 2020 Assessment & Plan (1) Status post lumbar surgery: POD # 2. (2) HTN (hypertension): Hemodynamically stable. Continue lisinopril and verapamil. (3) Hyperlipemia: Continue atorvastatin. (4) DVT prophylaxis: Per Ortho protocol. (5) Encounter for consultation: Thank you for this consultation. We will follow the patient with you during their hospital stay. My cell # is [phone]. You can reach a member of the [facility] Medicine Team 16/04 via pager @ [phone]. Admission and Anticipated Discharge Date Admission Date: May 26, 2020 Subjective Recheck for medical management. Doing well postoperatively. No chest pain. No cough or SOB. No nausea or vomiting. Passing flatus, but no stool. Voiding without difficulty. Had some postop pain last night, better today. Did well with PT, ambulated in hallway. Review of systems: As noted above. Physical Exam Constitutional: no acute distress Respiratory: no respiratory distress Auscultation: lungs clear to auscultation bilaterally Cardiovascular: Rate/Rhythm: regular rate and regular rhythm Heart Sounds: + murmur (I/ sys murmur at base) Vessels: no JVD Extremities: no calf tenderness and no edema Gastrointestinal (Abdomen): normal bowel sounds, soft, nontender, no hepatosplenomegaly Musculoskeletal: TEDS applied Skin: no rashes, warm and dry Psychiatric: Orientation: alert and oriented x 3 Results & Data Results & Data ([facility]) Vital Signs (Past 12 Hours) Vital Signs Temp Pulse Resp BP Pulse Ox 05/28/20 06:41 36.9 C 69 14 144/70 H 93 Laboratory Results 05/28/20 05:34 05/28/20 05:34
[2020-05-28] MEDS: ACETAMINOPHEN 500 MG TAB PO PRN (17:38)
[2020-05-28] MEDS: DOCUSATE SODIUM/SENNA 50/8.6MG TAB PO SCH (21:34)
[2020-05-28] MEDS: FOLIC ACID 400 MCG TAB PO SCH (21:34)
[2020-05-29] MEDS: OXYCODONE HCL IR 5 MG TAB (IMMEDIATE RELEASE) PO PRN ×5 (03:42→23:54)
[2020-05-29] MEDS: POLYETHYLENE (MIRALAX) 17 GM PACK PO SCH ×4 (05:11→23:53)
[2020-05-29] MEDS: TRAMADOL HCL 50 MG TABLET PO PRN ×3 (05:58→21:49)
[2020-05-29] MEDS: HYDROmorphone INJ 1 MG/ML SYRINGE IV PRN (07:42)
[2020-05-29] MEDS: ONDANSETRON 4 MG OD TAB PO PRN (07:54)
[2020-05-29] MEDS: VERAPAMIL HCL 40 MG TAB PO SCH ×3 (08:31→20:00)
--- NOTE | 2020-05-29 08:31 | Orthopedic Progress Note ---
Date of Service May 29, 2020 Assessment & Plan (1) Neurogenic claudication due to lumbar spinal stenosis: He struggling with a bit of pain control issues especially overnight. We will continue and hold his discharge today. Work on physical therapy and better pain control. Maintain LUDIN drain. Continue with aggressive bowel regimen. Continue with DVT prophylaxis in the form of teds and SCDs. Anticipate discharge home tomorrow. Admission and Anticipated Discharge Date Admission Date: May 26, 2020 Supervising Physician Co-Signing Physician Notes Dr. Maciel Gutierrez Subjective Patient is postoperative day 3 L3-S1 decompression fusion. He is struggling with a good bit of pain control in his lower back overnight. Leg pain is improved. He is passing flatus but no bowel movement. LUDIN drain output last shift was 25 cc. Yesterday in physical therapy ambling roughly 300 feet. Review of Systems Review of Systems: All systems reviewed & are unremarkable except as noted in HPI & below Physical Exam Physical Exam: He sitting on chair. Alert and oriented x3. No acute distress. Lumbar dressing is clean dry and intact. Lower extremities calves soft nontender bilaterally. CESILIA hose intact bilaterally. Strength is intact bilaterally. Results & Data ([facility]) Vital Signs (Past 12 Hours) Vital Signs Temp Pulse Resp BP Pulse Ox 05/28/20 23:51 36.9 C 70 14 127/73 94 05/28/20 21:32 70 150/73 H
[2020-05-29] MEDS: GABAPENTIN 100 MG CAP PO SCH ×3 (08:32→20:00)
[2020-05-29] MEDS: ATORVASTATIN 40 MG TAB PO SCH (08:32)
[2020-05-29] MEDS: lisinopriL 20 MG TAB PO SCH (08:33)
[2020-05-29] MEDS: DEXAMETHASONE SOD PHOSPHATE 8 MG in SYRINGE 0 ML IV SCH (08:33)
[2020-05-29] MEDS: ACETAMINOPHEN 500 MG TAB PO PRN (12:45)
[2020-05-29] MEDS: FOLIC ACID 400 MCG TAB PO SCH (20:00)
[2020-05-29] MEDS: DOCUSATE SODIUM/SENNA 50/8.6MG TAB PO SCH (20:00)
--- NOTE | 2020-05-29 22:40 | Hospitalist Progress Note ---
Date of Service May 29, 2020 Assessment & Plan (1) Status post lumbar surgery: POD #3. (2) HTN (hypertension): Hemodynamically stable. BP this morning 146/84. Continue lisinopril and verapamil. (3) Hyperlipemia: Continue atorvastatin. (4) DVT prophylaxis: Per Ortho protocol. (5) Encounter for consultation: Thank you for this consultation. We will follow the patient with you during their hospital stay. My cell # is [phone]. You can reach a member of the [facility] Medicine Team 16/04 via pager @ [phone]. Admission and Anticipated Discharge Date Admission Date: May 26, 2020 Subjective Recheck for medical management. Pt seen in his room around 1030. Doing well except for postop pain. No chest pain. No cough or SOB. No nausea or vomiting. Passing flatus and stool. Voiding without difficulty. Review of systems: As noted above. Physical Exam Constitutional: no acute distress Respiratory: no respiratory distress Auscultation: lungs clear to auscultation bilaterally Cardiovascular: Rate/Rhythm: regular rate and regular rhythm Heart Sounds: + murmur (I/ sys murmur at base) Vessels: no JVD Extremities: no calf tenderness and no edema Gastrointestinal (Abdomen): normal bowel sounds, soft, nontender, no hepatosplenomegaly Skin: no rashes, warm and dry Psychiatric: Orientation: alert and oriented x 3 Results & Data Results & Data ([facility]) Vital Signs (Past 12 Hours) Vital Signs Temp Pulse Resp BP BP Pulse Ox 05/29/20 15:28 36.8 C 61 16 119/68 94 05/29/20 13:56 36.8 C 66 18 136/74 94
[2020-05-30] MEDS: ACETAMINOPHEN 500 MG TAB PO PRN (01:35)
[2020-05-30] MEDS ORDERED: SUMAtriptan succinate 6 MG/0.5 ML VIAL SQ ONE (02:15)
[2020-05-30] MEDS: OXYCODONE HCL IR 5 MG TAB (IMMEDIATE RELEASE) PO PRN ×2 (04:57→08:55)
[2020-05-30] MEDS: VERAPAMIL HCL 40 MG TAB PO SCH (08:20)
--- NOTE | 2020-05-30 08:33 | Hospitalist Progress Note ---
Date of Service May 30, 2020 Assessment & Plan (1) Status post lumbar surgery: POD #4. (2) HTN (hypertension): Hemodynamically stable. BP this morning 136/78. Continue lisinopril and verapamil. (3) Hyperlipemia: Continue atorvastatin. (4) DVT prophylaxis: Per Ortho protocol. (5) Encounter for consultation: Thank you for this consultation. We will follow the patient with you during their hospital stay. My cell # is [phone]. You can reach a member of the [facility] Medicine Team 16/04 via pager @ [phone]. Admission and Anticipated Discharge Date Admission Date: May 26, 2020 Subjective Recheck for medical management. Pt seen in his room around 0750. Less postop pain. No chest pain. No cough or SOB. No nausea or vomiting. Passing flatus and stool. Voiding without difficulty. Ambulating in hallway. Hopes to go home today. Review of systems: As noted above. Physical Exam Constitutional: no acute distress Respiratory: no respiratory distress Auscultation: lungs clear to ausculta tion bilaterally Cardiovascular: Rate/Rhythm: regular rate and regular rhythm Heart Sounds: + murmur (I/ sys murmur at base) Vessels: no JVD Extremities: no calf tenderness and no edema Gastrointestinal (Abdomen): normal bowel sounds, soft, nontender, no hepatosplenomegaly Skin: no rashes, warm and dry Psychiatric: Orientation: alert and oriented x 3 Results & Data Results & Data ([facility]) Vital Signs (Past 12 Hours) Vital Signs Temp Pulse Pulse Resp BP BP Pulse Ox 05/30/20 08:10 36.7 C 58 L 16 136/78 93 05/30/20 08:07 36.9 C 78 63 14 147/72 H 136/74 96 05/29/20 23:59 36.9 C 63 14 147/72 H 96
--- NOTE | 2020-05-30 08:47 | Discharge Summary ---
Date of Service May 30, 2020 Admission HPI Per Admitting Provider This is a 49-year-old male who presents with chronic persistent back and bilateral leg pain. Failing extensive course of nonoperative care is here for surgical invention. Admission Exam (Per Admitting) Constitutional WD/WN, vitals as above Eyes normal visual lorenzo by confrontation ENMT external ear and nose normal, oropharynx normal Neck normal visual inspection Respiratory normal respiratory effort Cardiovascular Vessels: dorsalis pedis pulses present Extremities: normal capillary refill Chest (Breasts) Chest: normal inspection of chest Gastrointestinal (Abdomen) Inspection/Auscultation: abdomen normal to inspection Musculoskeletal Extremities: extremities normal to inspection and strength 5/5 throughout Skin no rashes, warm and dry Neurologic normal touch/pain/proprioception and moves all extremities Psychiatric A+Ox3, euthymic affect Apperance: appropriately dressed Eye Contact: good eye contact Speech: normal rate/rhythm/volume of speech Discharge Data Consultations 05/26/20 15:36 Consult Case Management - Discharge Planning Routine Consult Hospitalist Routine Procedures Performed Operation Date: 05/26/20 09:35 Actual Procedures p L3-S1 Decompression and Fusion with Interbodies L3-L4, L4-L5, and L5-S1; Spinal Cord Monitoring(Not Applicable) - Maciel Gutierrez, Hospital Course (1) Neurogenic claudication due to lumbar spinal stenosis: Patient is being discharged home on postoperative day 4. He is a bit of pain control issues but these are greatly improved. He is had a bowel movement. He has been making slow and steady progress in physical therapy. Lab values have been stable. LUDIN drain output has been diminishing daily. Discharge Instructions ACTIVITY RECOMMENDATIONS: SELF CARE INSTRUCTIONS AFTER THORACIC/LUMBAR FUSIONS 1. You may walk to your tolerance. It is good exercise for your legs and back. Expect some back and intermittent leg aches and pains. 2. You may perform "counter-top" level activities (make a sandwich, sun with a project, etc.). 3. No bending or lifting of more than 10 pounds or back twisting of any nature (roll like a log when turning in bed). 4. You may ride in a car for 20-30 minutes at a time. No driving until after your first visit with your doctor. 5. Frequent changes of position and restricting sitting to 30 minutes at a time will help limit the amount of back spasms and stiffness you may experience. 6. You may discontinue the use of ambulatory aids (cane, crutches, etc.) once your strength and confidence allow. 7. You may project engineering director the shower and let water strike your incision when you arrive home at least once daily. Do not take a tub bath, sit in a hot tub or go into a swimming pool until after your first recheck in the office. SPECIAL CARE INSTRUCTIONS: VERY IMPORTANT TO READ AND REVIEW A. Your surgical incision has been closed with a cosmetic suture under the skin that will dissolve in about 6 weeks. In 14 days, you can use a pair of clean scissors and cut the suture that is left outside of the skin at the ends of your incision. 1. The small skin tapes can be removed 7 days after surgery if they have not fallen off by that point. 2. You may keep the wound open to air as much as possible to promote healing after post-op day number 5 unless told otherwise by your doctor. 3. If you think the wound looks like it is becoming infected (redness or worsening drainage) and/or you are experiencing fever, chill or worsening back pain and muscle spasms, contact the office so that we may evaluate you as soon as possible. B. Complications are uncommon, but please contact us if you have any signs or symptoms of: 1. wound infection (fever higher than 102.5 degrees F, redness, separation of wound, drainage, or increasing pain from the incision) 2. blood clots in legs (pain, swelling, redness and warmth in legs) 3. urinary tract infection (fever higher than 102.5 degrees F, burning upon urination or increased frequency of urination) 4. nerve problems (inability to walk on your toes or heels, numbness, loss of bowel or bladder control) 5. any other symptoms that concern you C. Please call the office at if you have any concerns or questions about your operation or recovery. D. No smoking! Smoking drastically decreases the chance of a solid fusion. E. Do not take any anti-inflammatory medications (Indocin, Advil, Motrin, Aspirin, Naprosyn, etc.) as these may inhibit the chance of a solid fusion. Tylenol is okay to take for pain. MANAGING PAIN AFTER SPINAL SURGERY 1. Narcotic medication is intended for short-term use and will be provided for surgical pain. Surgical pain usually lasts for a period of 4-6 weeks. Narcotic medication includes Percocet, Vicodin, Darvocet, Tylenol #3 or Lortab. 2. Longer-term pain is more appropriately treated with non-narcotic medication such as Tylenol ES. 3. Muscle spasm is not appropriately treated with narcotics. Muscle relaxers such as Soma, Flexeril or Skelaxin can be used along with Tylenol ES. 4. Remember that we all live with some "aches and pains". This is not unusual or uncommon after an injury or as we get older. a. Back pain is expected and may include muscle spasms for 4 to 6 weeks after surgery. The pain should gradually improve. If the pain worsens for no apparent reason, please contact the office. b. Intermittent leg pain may also be experienced and should not be concerned about unless it worsens for no apparent reason. If so, please contact the office. 5. We will provide appropriate medication within the normal guidelines of their prescribed use. We will also be very cautious and aware of potential abuse and extended duration of patients' medication needs. a. Pain medications are for your comfort and to assist with sleep and rest so that the tissue can heal. They are not provided in order to return to normal activity and should not be used through the day. To do so or worsening pain at night can result from ongoing tissue damage and development of tolerance to the prescribed medicine. 6. Please allow 2-3 days to process refills. Prescriptions will not be mailed but must be picked up at the office. FOLLOW UP VISIT: Keep your scheduled follow-up appointment. Any questions, please call the office at . Supervising Physician Co-Signing Physician Notes Dr. Maciel Gutierrez
[2020-05-30] MEDS: lisinopriL 20 MG TAB PO SCH (08:55)
[2020-05-30] MEDS: DEXAMETHASONE SOD PHOSPHATE 8 MG in SYRINGE 0 ML IV SCH (08:55)
[2020-05-30] MEDS: GABAPENTIN 100 MG CAP PO SCH (08:55)
[2020-05-30] MEDS: ATORVASTATIN 40 MG TAB PO SCH (08:55)
== END 2020-05-30 12:10 | disposition home or self-care (01) | DRG 454 ==
LOC: ASU 07:55 → 3E 13:25

== ENCOUNTER 2021-09-19 07:05 | Inpatient (IN) ==
[2021-09-19] MEDS ORDERED: HYDROmorphone INJ 0.5 MG/0.5 ML SYR IV STA (07:42)
[2021-09-19] MEDS ORDERED: ONDANSETRON 4 MG OD TAB PO STA (07:42)
--- NOTE | 2021-09-19 08:01 | Emergency Department Note ---
History of Present Illness General Chief complaint: Back Injury/Pain Stated complaint: BACK PAIN -PT OF DR GUTIERREZ Time Seen by Provider: 09/19/21 07:30 History of Present Illness Maximum Pain Intensity: 8 51-year-old male with significant past medical history of chronic low back pain, lumbar radiculopathy, lumbar spinal stenosis and prior back surgery, presents to the emergency department via private vehicle accompanied by his complaining of pain in the low back which began a year ago after his spinal fusion. The patient states he has been following with Dr. Gutierrez who would like to do another operation to remove rods and fuse L4, but the hospital has been canceling surgeries and the patient has not been able to have this procedure completed. He states his pain has been progressively worsening since April of this year. The patient reports that he can no longer tolerate the pain. He also reports increasing episodes of incontinence, and has also fallen several times due to weakness of the right leg. He has tried multiple medications that without relief. The patient notes that the incontinence is not new, and that Dr. Gutierrez is aware. There has been no leg numbness or weakness, and no change in sensation. The patient does report pain radiating down the right lower extremity. The patient rates his discomfort an 8 out of 10. Home Medications Medication Instructions Recorded Confirmed Type lisinopril 20 mg tablet 40 mg PO QAM 10/30/18 09/19/21 History testosterone cypionate 200 mg/mL 1 dose IM DIRECTED 10/30/18 09/19/21 History intramuscular kit gabapentin 100 mg capsule 300 mg PO TID 05/13/20 09/19/21 History acetaminophen 500 mg tablet 1,000 mg PO BID 09/02/21 09/19/21 History (Tylenol Extra Strength) galcanezumab-gnlm 120 mg/mL 120 mg SUBCUT MONTHLY 09/02/21 09/19/21 History subcutaneous pen injector (Emgality Pen) loratadine 10 mg tablet 10 mg PO QAM 09/02/21 09/19/21 History Allergies Allergy/AdvReac Type Severity Reaction Status Date / Time adhesive tape Allergy Intermediate Blisters Verified 09/19/21 10:15 with rough clear tape iron AdvReac Intermediate ELEVATES Verified 09/19/21 10:15 LIVER ENZYMES TO DANGEROUS LEVELS lorazepam [From Ativan] AdvReac Intermediate HALLUCINATI Verified 09/19/21 10:15 ONS morphine AdvReac Intermediate HALLUCINATI Verified 09/19/21 10:15 ONS Past Med/Surg History Medical History Chronic pain Cluster headache History of depression Pain aggravates depression and anxiety- currently stable and controlled History of migraine Stable- follows with neuro for Botox HTN (hypertension) related to pain Hyperlipemia improving, no longer on med Osteoarthritis 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 No issues per anesthesia post-op progress note. History of partial nephrectomy History of repair of hiatal hernia History of sinus surgery removal of benign mass History of surgery on left wrist Fusion History of tonsillectomy and adenoidectomy Family History Other No family history of adverse response to anesthesia Social History Smoking Status: Former smoker Second Hand Exposure: No; Hx Alcohol Use: No Hx Substance Use: No Preferred Language: Sinhala Communication Ability: Effective Manager Library Required: No Beliefs That Will Affect Care: None Current Living Situation: Significant Other Current Living Situation Comment: fiance Feels Safe at Home: Yes Assistive Devices: Denture - Upper and Denture - Lower Review of Systems 10 system review was performed and was negative except for pertinent positives and negatives as indicated in history of present illness Physical Exam Vital Signs Vital Signs - 24 hr 09/19/21 07:20 Temperature 36.4 C L Temperature Source Oral Pulse Rate 76 Respiratory Rate 20 Blood Pressure 191/123 H Blood Pressure Mean 145 Pulse Oximetry 95 Oxygen Delivery Method Room Air Sepsis Recent Fever Within 48 Hours No Sepsis New/Unexplained Change in Mental Status No Sepsis Action Taken by Nursing No Action Required CONSTITUTIONAL: Healthy and well nourished. Patient appears in moderate discomfort. HEENT: No scleral icterus or conjunctival injection. NECK: Full active range of motion without discomfort. RESPIRATORY: Clear to auscultation bilaterally with no wheezing, crackles, rhonchi or stridor. CARDIOVASCULAR: Regular rate and rhythm with no murmurs, rubs or gallops. GASTROINTESTINAL: Bowel sounds present in all quadrants. Abdomen is soft and nontender to palpation. MUSCULOSKELETAL: Examination shows generalized tenderness to palpation through the lower lumbar spine and paraspinous muscles. Negative logroll bilaterally. Positive straight leg raise on the right with positive crossover exam. Patient has weakened hip flexors, right worse than left. Pedal pulses are intact. Ankle plantar/dorsiflexion strength is 3 out of 5 on the right, 5 out of 5 on the left. INTEGUMENTARY: No rash or other significant dermatologic conditions noted. HEMATOLOGIC: No ecchymosis or petechiae. PSYCHIATRIC: Positive affect. NEUROLOGIC: Lower extremity deep tendon reflexes are 2+ and symmetric bilaterally. Course Course Patient history and physical exam were performed. Nurses notes were reviewed. Vital signs were reviewed, showing an elevated blood pressure. The patient appeared in moderate discomfort. In anticipation that the patient will require admission, I did recommend establishing IV, drawing labs and performing other preoperative testing until I can consult Dr. Gutierrez. IV access was established, and labs were drawn, reviewed and were grossly normal. COVID-19 RNA test was negative. An ECG was performed, showing an incomplete right bundle branch block at a rate of 71 bpm. When compared to a prior ECG of last April, no significant changes were noted. Portable chest x-ray was also performed and was normal. I was able to discuss the case further with Dr. Gutierrez, who has recommended admission and hopefully surgical intervention. Please see Dr. Gutierrez's dictation for further treatment and final disposition. Administered Medications Gabapentin (Gabapentin 300 Mg Cap) 300 mg PO TID [facility] Stop: 10/19/21 12: Last Admin: 09/19/21 13:47 Dose: 300 mg Documented by: [id number] Lactated Ringer's (Lr) 1,000 mls @ 75 mls/hr IV .[id number] [facility] [place] Stop: 10/19/21 12: Last Admin: 09/19/21 13:47 Dose: 75 mls/hr Documented by: [id number] Lisinopril (Lisinopril 40 Mg Tab) 40 mg PO QAM [facility] [place] Stop: 10/19/21 12: Last Admin: 09/19/21 13:47 Dose: 40 mg Documented by: [id number] Loratadine (Loratadine 10 Mg Tab) 10 mg PO QAM [facility] [place] Stop: 10/19/21 12:26 Last Admin: 09/19/21 13:47 Dose: 10 mg Documented by: [id number] Discontinued Medications Hydromorphone HCl (Hydromorphone Inj 0.5 Mg/0.5 Ml Syr) 0.5 mg IV NOW STA Stop: 09/19/21 07:43 Last Admin: 09/19/21 08:02 Dose: 0.5 mg Documented by: [id number] Ondansetron HCl (Ondansetron 4 Mg Od Tab) 4 mg PO NOW STA Stop: 09/19/21 07:43 Last Admin: 09/19/21 08:03 Dose: 4 mg Documented by: [id number] Oxycodone HCl (Oxycodone Hcl Ir 5 Mg Tab (Immediate Release)) Confirm Administered Dose 5 mg .ROUTE .STK-MED ONE Stop: 09/19/21 11:37 Last Admin: 09/19/21 11:39 Dose: 5 mg Documented by: [id number] Medical Decision Making Medical Records Attestation: I reviewed the patient's medical records. Home Medications Current Medication List: was personally reviewed by me Laboratory Data Attestation: I reviewed the patient's lab results. Result diagrams: 09/19/21 08:10 09/19/21 08:10 Lab Results 09/19/21 09/19/21 09/19/21 Range/Units 08:10 08:10 08:10 WBC 5.55 (4.8-10.8) K/uL RBC 4.41 L (4.7-6.1) M/uL Hgb 12.0 L (14.0-18.0) g/dL Hct 37.4 L (42-52) % MCV 84.8 (80-100) fL MCH 27.2 (25-34) pg MCHC 32.1 (32-36) g/dL RDW Std Deviation 46.3 (36.4-46.3) fL RDW Coeff of [place]tran 14.9 H (11.5-14.5) % Plt Count 246 (130-400) K/uL MPV 10.0 (7.4-10.4) fL Immature Gran % (Auto) 0.0 % Neut % (Auto) 72.7 % Lymph % (Auto) 16.2 % [place] % (Auto) 9.5 % Eos % (Auto) 1.4 % Baso % (Auto) 0.2 % Neut # (Auto) 4.03 (1.4-6.5) K/uL Lymph # (Auto) 0.90 L (1.2-3.4) K/uL [place] # (Auto) 0.53 (0.11-0.59) K/uL Eos # (Auto) 0.08 (0-0.5) K/uL Baso # (Auto) 0.01 (0-0.2) K/uL Immature Gran # (Auto) 0.00 (0.00-0.02) K/uL ESR 14 (0-20) mm/hr Sodium 140 (136-145) mmol/L Potassium 3.6 (3.5-5.1) mmol/L Chloride 108 H (98-107) mmol/L Carbon Dioxide 26 (21-32) mmol/L Anion Gap 6.0 (3-11) BUN 13 (7-18) mg/dl Creatinine 0.77 (0.6-1.4) mg/dl Est Cr Clr Drug Dosing 173.8 ml/min Est GFR ( Amer) 122.6 ml/min Est GFR (Non-Af Amer) 105.8 ml/min BUN/Creatinine Ratio 16.9 (10-20) Glucose 121 H (70-99) mg/dl Calcium 9.1 (8.5-10.1) mg/dl Total Bilirubin 0.4 (0.2-1) mg/dl AST 20 (15-37) U/L ALT 23 (12-78) Alkaline Phosphatase 90 (45-117) U/L C-Reactive Protein 0.39 H (0-0.29) mg/dl Total Protein 6.9 (6.4-8.2) gm/dl Albumin 3.5 (3.4-5.0) gm/dl Globulin 3.4 (2.5-4.0) gm/dl Albumin/Globulin Ratio 1.0 (0.9-2) Lipase 164 (73-393) U/L SARS-CoV-2, RNA, NAAT (NEGATIVE) 09/19/21 Range/Units Unknown WBC (4.8-10.8) K/uL RBC (4.7-6.1) M/uL Hgb (14.0-18.0) g/dL Hct (42-52) % MCV (80-100) fL MCH (25-34) pg MCHC (32-36) g/dL RDW Std Deviation (36.4-46.3) fL RDW Coeff of Beltran (11.5-14.5) % Plt Count (130-400) K/uL MPV (7.4-10.4) fL Immature Gran % (Auto) % Neut % (Auto) % Lymph % (Auto) % [place] % (Auto) % Eos % (Auto) % Baso % (Auto) % Neut # (Auto) (1.4-6.5) K/uL Lymph # (Auto) (1.2-3.4) K/uL [place] # (Auto) (0.11-0.59) K/uL Eos # (Auto) (0-0.5) K/uL Baso # (Auto) (0-0.2) K/uL Immature Gran # (Auto) (0.00-0.02) K/uL ESR (0-20) mm/hr Sodium (136-145) mmol/L Potassium (3.5-5.1) mmol/L Chloride (98-107) mmol/L Carbon Dioxide (21-32) mmol/L Anion Gap (3-11) BUN (7-18) mg/dl Creatinine (0.6-1.4) mg/dl Est Cr Clr Drug Dosing ml/min Est GFR ( Amer) ml/min Est GFR (Non-Af Amer) ml/min BUN/Creatinine Ratio (10-20) Glucose (70-99) mg/dl Calcium (8.5-10.1) mg/dl Total Bilirubin (0.2-1) mg/dl AST (15-37) U/L ALT (12-78) Alkaline Phosphatase (45-117) U/L C-Reactive Protein (0-0.29) mg/dl Total Protein (6.4-8.2) gm/dl Albumin (3.4-5.0) gm/dl Globulin (2.5-4.0) gm/dl Albumin/Globulin Ratio (0.9-2) Lipase (73-393) U/L SARS-CoV-2, RNA, NAAT NEGATIVE (NEGATIVE) Imaging Data Attestation: I personally reviewed and interpreted this imaging study as follows: My Impression: My interpretation of reportable chest x-ray does not show any consolidations or pneumothorax. Noncontrast MRI of the lumbar spine was also performed at Dr. Gutierrez's request, showing severe central canal stenosis at L2-3. Further findings are as indicated in the following radiologist reports. Radiologist's Impression: Chest X-Ray 09/19/21 08:07 XR chest 1V portable CLINICAL HISTORY: Preoperative evaluation. COMPARISON STUDY: No previous studies for comparison. FINDINGS: Mild elevation of the left hemidiaphragm is unchanged. Lungs are clear. There is no pneumothorax or pleural effusion. Cardiac size is normal. Mediastinal contours are normal. There is no evidence for pulmonary edema. IMPRESSION: No acute cardiopulmonary findings. ACT 112: Negative or not required by law. Electronically signed by: Arnie May M.D. 09/19/2021 9:21 AM Lumbar Spine MRI 09/19/21 08:07 MRI OF THE LUMBAR SPINE WITHOUT CONTRAST CLINICAL HISTORY: Symptoms of cauda equina. Low back pain. Right leg numbness. COMPARISON STUDY: MRI lumbar spine June 27, 2020. TECHNIQUE: Utilizing a 1.5 Margot magnet and dedicated coil, multiplanar, multiecho imaging of the lumbar spine was performed without IV contrast. FINDINGS: For purposes of numbering on this exam, the L5-S1 disc space is assigned to axial image 40 of 45. Alignment of the lumbar spine is anatomic. Vertebral body heights are maintained. There are postoperative findings consistent with L3-S1 discectomy, posterior decompression and bilateral pedicle screw fusion. The conus terminates at the lower L1 level. There is a possible abnormality within the anterior epidural space at the T10-T11 level, partially imaged on this exam. T2 hyperintense left renal lesion is suboptimally assessed on this unenhanced exam but probably reflects a cyst. L1-2: Note is made of moderate disc space narrowing with a small left paracentral disc protrusion. There is facet arthrosis. There is mild narrowing of the central canal and left lateral recess. Neural foramen are patent. L2-3: Note is made of severe facet arthrosis with ligamentous hypertrophy. There is disc bulge with annular tear. The findings result in moderate to severe central canal stenosis which is similar to MRI of June 27, 2021. To severe narrowing of both lateral recesses and neural foramen is again noted. L3-4: There is no residual central canal stenosis posterior decompression. Neural foramen are patent. L4-5: There is no residual central canal stenosis post decompression. Neural foramen are patent. L5-S1: There is no residual central canal stenosis posterior decompression. Moderate bilateral neural foraminal stenosis is present. IMPRESSION: 1. Status post L3-S1 posterior decompression and fusion. No central canal stenosis at these levels. 2. Moderate to severe central canal stenosis at L2-L3 which is similar to MRI of June 27, 2021. This is due to severe facet arthrosis with ligamentous hypertrophy and disc bulge. 3. Possible abnormality within the anterior epidural space at the T10-T11 level, partially imaged on this exam. An MRI of the thoracic spine with and without contrast could be obtained for further evaluation. 4. Multilevel neural foraminal stenosis within the lumbar spine, similar to previous MRI. ACT 112: Negative or not required by law. Electronically signed by: Arnie May M.D. 09/19/2021 10:22 AM Blood Pressure Blood Pressure Findings: Elevated blood pressure Blood Pressure Disposition: elevated BP felt to be situational MDM Narrative Patient presents the emergency department with complaint of intractable lower back pain with lumbar radiculitis, resolving lower extremity weakness and incontinence. The patient has had a prior history of back surgery, and has been deemed appropriate for surgical intervention. Unfortunately, the patient surgeries have been canceled secondary to hospital volume and operational limitations secondary to the COVID-19 pandemic. The patient has essentially failed all outpatient options, complaining of intractable pain, weakness and incontinence. MRI is not suggestive of cauda equina syndrome. Patient does have severe central canal stenosis at L2-3. Patient is afebrile and has no white count to suggest infectious etiology. Patient denies any recent trauma or injuries to suggest spinal hematoma. The chart was completed utilizing [employer] Speech voice recognition software. Grammatical errors, random word insertions, pronoun errors, and incomplete sentences are an occassional consequence of this system due to software limitations, ambient noise, and hardware issues. Any formal questions or concerns about the content, text, or information contained within the body of this dictation should be directly addressed to the physician for clarification. Impression & Plan Intractable neuropathic pain of lumbosacral origin, Right lumbar radiculitis, Weakness of right lower extremity, Bladder incontinence Discharge Plan Visit Data Chief Complaint: Back Injury/Pain Stated Complaint: BACK PAIN -PT OF DR GUTIERREZ ED Provider: Herbert Rayo ED Midlevel Provider: Jarret Graff Discharge Problem: Intractable neuropathic pain of lumbosacral origin, Right lumbar radiculitis, Weakness of right lower extremity, Bladder incontinence Discharge Problem: Bladder incontinence Qualifiers: Urinary Incontinence type: unspecified incontinence Qualified Code(s): R32 - Unspecified urinary incontinence
[2021-09-19 08:34] LABS: Basophils # (auto) 0.01 K/uL (0-0.2); Basophils % (auto) 0.2 %; Eosinophils # (auto) 0.08 K/uL (0-0.5); Eosinophils % (auto) 1.4 %; Hematocrit (blood only) 37.4 % (42-52); Lymphocytes % (auto) 16.2 %; Mean Corpuscular Hemoglobin 27.2 pg (25-34); Mean Corpuscular Hgb Conc 32.1 g/dL (32-36); Mean Corpuscular Volume 84.8 fL (80-100); Monocytes # (auto) 0.53 K/uL (0.11-0.59); Monocytes % (auto) 9.5 %; Neutrophils # (auto) 4.03 K/uL (1.4-6.5); Neutrophils % (auto) 72.7 %; Platelet Count 246 K/uL (130-400); RDW Coefficient of Variation 14.9 % (11.5-14.5); RDW Standard Deviation 46.3 fL (36.4-46.3); Red Blood Count 4.41 M/uL (4.7-6.1); White Blood Count 5.55 K/uL (4.8-10.8)
[2021-09-19 08:52] LABS: Albumin Level 3.5 gm/dl (3.4-5.0); BUN Creatinine Ratio 16.9 (10-20); C Reactive Protein 0.39 mg/dl (0-0.29); Calcium 9.1 mg/dl (8.5-10.1); Creatinine Clr Calc Pharmacy 173.8 ml/min; Est GFR (African American) 122.6 ml/min; Est GFR (Non-African American) 105.8 ml/min; Potassium 3.6 mmol/L (3.5-5.1)
[2021-09-19 08:55] LABS: Globulin 3.4 gm/dl (2.5-4.0); Total Protein 6.9 gm/dl (6.4-8.2)
[2021-09-19 09:00] LABS: Bilirubin,Total 0.4 mg/dl (0.2-1)
--- NOTE | 2021-09-19 09:23 | XRay Report ---
XR chest 1V portable CLINICAL HISTORY: Preoperative evaluation. COMPARISON STUDY: No previous studies for comparison. FINDINGS: Mild elevation of the left hemidiaphragm is unchanged. Lungs are clear. There is no pneumot horax or pleural effusion. Cardiac size is normal. Mediastinal contours are normal. There is no evide nce for pulmonary edema. IMPRESSION: No acute cardiopulmonary findings. ACT 112: Negative or not required by law. Electronically signed by: Arnie May M.D. 09/19/2021 9:21 AM
--- NOTE | 2021-09-19 10:24 | Magnetic Resonance Report ---
MRI OF THE LUMBAR SPINE WITHOUT CONTRAST CLINICAL HISTORY: Symptoms of cauda equina. Low back pain. Right leg numbness. COMPARISON STUDY: MRI lumbar spine June 27, 2020. TECHNIQUE: Utilizing a 1.5 Margot magnet and dedicated coil, multiplanar, multiecho imaging of the gabrielle ar spine was performed without IV contrast. FINDINGS: For purposes of numbering on this exam, the L5-S1 disc space is assigned to axial image 40 of 45. Ali gnment of the lumbar spine is anatomic. Vertebral body heights are maintained. There are postoperativ e findings consistent with L3-S1 discectomy, posterior decompression and bilateral pedicle screw fusi on. The conus terminates at the lower L1 level. There is a possible abnormality within the anterior e pidural space at the T10-T11 level, partially imaged on this exam. T2 hyperintense left renal lesion is suboptimally assessed on this unenhanced exam but probably reflects a cyst. L1-2: Note is made of moderate disc space narrowing with a small left paracentral disc protrusion. Th ere is facet arthrosis. There is mild narrowing of the central canal and left lateral recess. Neural foramen are patent. L2-3: Note is made of severe facet arthrosis with ligamentous hypertrophy. There is disc bulge with a nnular tear. The findings result in moderate to severe central canal stenosis which is similar to MRI of June 27, 2021. To severe narrowing of both lateral recesses and neural foramen is again noted. L3-4: There is no residual central canal stenosis posterior decompression. Neural foramen are patent. L4-5: There is no residual central canal stenosis post decompression. Neural foramen are patent. L5-S1: There is no residual central canal stenosis posterior decompression. Moderate bilateral neural foraminal stenosis is present. IMPRESSION: 1. Status post L3-S1 posterior decompression and fusion. No central canal stenosis at these levels. 2. Moderate to severe central canal stenosis at L2-L3 which is similar to MRI of June 27, 2021. Thi s is due to severe facet arthrosis with ligamentous hypertrophy and disc bulge. 3. Possible abnormality within the anterior epidural space at the T10-T11 level, partially imaged on this exam. An MRI of the thoracic spine with and without contrast could be obtained for further evalu ation. 4. Multilevel neural foraminal stenosis within the lumbar spine, similar to previous MRI. ACT 112: Negative or not required by law. Electronically signed by: Arnie May M.D. 09/19/2021 10:22 AM
[2021-09-19] MEDS ORDERED: oxyCODONE HCL IR 5 MG TAB (IMMEDIATE RELEASE) ONE (11:36)
[2021-09-19] MEDS ORDERED: PROMETHAZINE HCL 12.5 MG in SODIUM CHLORIDE 0.9% 50 ML IV PRN (12:27)
[2021-09-19] MEDS ORDERED: MAGNESIUM HYDROXIDE SUSP 30 ML UDC PO PRN (12:27)
[2021-09-19] MEDS ORDERED: NALOXONE HCL 0.4 MG/1 ML VIAL/CARP IV PRN (12:27)
[2021-09-19] MEDS ORDERED: METOCLOPRAMIDE HCL INJ 5 MG/ML 2 ML VIAL IV PRN (12:27)
[2021-09-19] MEDS ORDERED: diphenhydrAMINE Capsule 25 MG CAP PO PRN (12:27)
[2021-09-19] MEDS ORDERED: ACETAMINOPHEN 500 MG TAB PO PRN (12:27)
[2021-09-19] MEDS ORDERED: ALUMINUM/MAGNESIUM SUSP 30 ML UDC PO PRN (12:27)
[2021-09-19] MEDS ORDERED: ACETAMINOPHEN 1,000 MG/100 ML VIAL IV PRN (12:27)
[2021-09-19] MEDS: lisinopril 40 MG TAB PO SCH (13:47)
[2021-09-19] MEDS: LORATADINE 10 MG TAB PO SCH (13:47)
[2021-09-19] MEDS: GABAPENTIN 300 MG CAP PO SCH ×2 (13:47→21:46)
[2021-09-19] MEDS: LACTATED RINGER'S 1,000 ML IV SCH (13:47)
--- NOTE | 2021-09-19 13:50 | Electrocardiogram Report ---
Test Reason : Blood Pressure : / mmHG Vent. Rate : 071 BPM Atrial Rate : 071 BPM P-R Int : 188 ms QRS Dur : 102 ms QT Int : 406 ms P-R-T Axes : 031 007 038 degrees QTc Int : 441 ms Normal sinus rhythm Incomplete right bundle branch block Borderline ECG When compared with ECG of 13-MAY-2020 14:56, No significant change was found Confirmed by Cyril Main ([id number]) on 09/19/2021 1:50:15 PM Referred By: REFERRED SELF Confirmed By:Noah Main
--- NOTE | 2021-09-19 16:14 | History & Physical Report ---
Date of Service September 19, 2021 Assessment & Plan (1) Neurogenic claudication due to lumbar spinal stenosis: Plan: Assessment lumbar spinal stenosis with radiculopathy and progressive neuro deficit. Plan at this time and updated MRIs does continue to demonstrate severe stenosis facet hypertrophy L2-L3 adjacent to his fusion from L3-S1. In light of his presentation and decline I am recommending emergent decompression fusion L2- L3. An updated MRI does have some questionable findings at the T10 region of the thoracic spine which is which was picked up on the lumbar scans. Subsequently to be thorough and like to obtain an MRI of the thoracic spine as well. Risk benefits pros cons alternatives were outlined in detail. At this time will make him n.p.o. and hope to have surgery tomorrow. Admission and Anticipated Discharge Date Admission Date: September 19, 2021 History of Present Illness Chief Complaint: Back and right leg pain with weakness Primary Care Provider: NO PCP This is a 51-year-old male known to me having undergone a multilevel lumbar decompression many years ago. He presents with significant decline in status predominantly affecting the right lower extremity. He states any prolonged standing walking does produce is dense right leg pain numbness and weakness. The left lower extremity is largely asymptomatic. He is failed all nonoperative attempts and presents to emergency room with a significant decline in status. Allergies Allergy/AdvReac Type Severity Reaction Status Date / Time adhesive tape Allergy Intermediate Blisters Verified 09/19/21 10:15 with rough clear tape iron AdvReac Intermediate ELEVATES Verified 09/19/21 10:15 LIVER ENZYMES TO DANGEROUS LEVELS lorazepam [From Ativan] AdvReac Intermediate HALLUCINATI Verified 09/19/21 10:15 ONS morphine AdvReac Intermediate HALLUCINATI Verified 09/19/21 10:15 ONS Home Medications Medication Instructions Recorded Confirmed Type lisinopril 20 mg tablet 40 mg PO QAM 10/30/18 09/19/21 History testosterone cypionate 200 mg/mL 1 dose IM DIRECTED 10/30/18 09/19/21 History intramuscular kit gabapentin 100 mg capsule 300 mg PO TID 05/13/20 09/19/21 History acetaminophen 500 mg tablet 1,000 mg PO BID 09/02/21 09/19/21 History (Tylenol Extra Strength) galcanezumab-gnlm 120 mg/mL 120 mg SUBCUT MONTHLY 09/02/21 09/19/21 History subcutaneous pen injector (Emgality Pen) loratadine 10 mg tablet 10 mg PO QAM 09/02/21 09/19/21 History Past Med/Surg History Medical History Chronic pain Cluster headache History of depression Pain aggravates depression and anxiety- currently stable and controlled History of migraine Stable- follows with neuro for Botox HTN (hypertension) related to pain Hyperlipemia improving, no longer on med Osteoarthritis 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 No issues per anesthesia post-op progress note. History of partial nephrectomy History of repair of hiatal hernia History of sinus surgery removal of benign mass History of surgery on left wrist Fusion History of tonsillectomy and adenoidectomy Family History Other No family history of adverse response to anesthesia Social History Smoking Status: Former smoker Second Hand Exposure: No; Hx Alcohol Use: No Hx Substance Use: No Preferred Language: Algerian Communication Ability: Effective Grassroots Organizer Required: No Beliefs That Will Affect Care: None Current Living Situation: Significant Other Current Living Situation Comment: fiance Feels Safe at Home: Yes Assistive Devices: Denture - Upper and Denture - Lower Physical Exam Physical Exam: On exam the patient is in the chair at the bedside. He exhibits +5-5 plantar flexion dorsiflexion of extensor hallucis longus. Is marked difficulty with right hip flexion and quadriceps at 4-/5. The 5 or 5 on the left. Sensory is markedly diminished on the right compared to the left. Deep tendon reflexes are diminished there is a 2 beat nonsustained clonus bilaterally. Results & Data ([facility]) Vital Signs (Past 12 Hours) Vital Signs Temp Pulse Pulse Resp BP BP Pulse Ox 09/19/21 12:28 59 L 16 160/88 H 94 09/19/21 11:41 78 16 149/86 H 97 09/19/21 10:10 82 16 143/92 H 94 09/19/21 07:20 36.4 C L 76 20 191/123 H 95 Code Status & VTE Plan VTE Prophylaxis Plan VTE Prophylaxis will be ordered: Yes
[2021-09-19] MEDS: oxyCODONE HCL IR 5 MG TAB (IMMEDIATE RELEASE) PO PRN (17:07)
[2021-09-19] MEDS: traMADol HCL 50 MG TABLET PO PRN (20:33)
[2021-09-20] MEDS ORDERED: GADOBUTROL 65ML VIAL IV ONE (00:41)
[2021-09-20] MEDS: ONDANSETRON 4 MG OD TAB PO PRN ×2 (00:59→19:51)
[2021-09-20] MEDS: oxyCODONE HCL IR 5 MG TAB (IMMEDIATE RELEASE) PO PRN ×2 (00:59→19:51)
[2021-09-20] MEDS: hydrOXYzine HCl 25 MG TAB PO PRN (01:30)
[2021-09-20] MEDS: LACTATED RINGER'S 1,000 ML IV SCH ×3 (01:32→20:15)
[2021-09-20] MEDS ORDERED: MIDAZOLAM HCL 1 MG/ML 2ML VIAL ONE (08:42)
[2021-09-20] MEDS ORDERED: fentaNYL citrate 100 MCG/2 ML VIAL ONE (08:42)
[2021-09-20] MEDS: lisinopril 40 MG TAB PO SCH (08:52)
[2021-09-20] MEDS: GABAPENTIN 300 MG CAP PO SCH ×3 (08:52→21:27)
[2021-09-20] MEDS: LORATADINE 10 MG TAB PO SCH (08:52)
--- NOTE | 2021-09-20 09:25 | Magnetic Resonance Report ---
THORACIC SPINE MRI WITH AND WITHOUT CONTRAST HISTORY: abnormal finding on lumbar scan TECHNIQUE: Multiplanar multisequence MRI of the thoracic spine was performed both before and after th e intravenous administration of contrast. COMPARISON: Lumbar spine MRI 09/19/2021. FINDINGS: No fractures within the thoracic spine. Mild disc space narrowing throughout the thoracic spine. Ther e is a T8 vertebral body hemangioma. The thoracic spinal cord which is a normal signal intensity. Par avertebral soft tissues are unremarkable. Best seen on sagittal images 9 and axial image 32 of series 10 there is a 6 mm round T2 and T1 hypointense nodule immediately posterior to the T10 vertebral bod y. This corresponds to the abnormality seen on the prior lumbar spine MRI. This is just to the left o f midline results in moderate central canal narrowing with moderate deformity of the left side of the thoracic spinal cord and displacement of the thoracic spinal cord to the right. This appears to be e xtradural. There is T1 and T2 hyperintense signal within the epidural space adjacent to this lesion. Therefore, this could represent a small amount of blood products. This abnormality demonstrates prima rily peripheral enhancement. No additional extradural lesions identified. No fracture or subluxation within the thoracic spine. There is mild dextroscoliosis. IMPRESSION: There is a 6 mm round lesion immediately posterior to the T10 vertebral body which corresponds to the prior lumbar spine MRI abnormality. This is nonspecific but could represent a sequestered disc fragm ent or extradural mass. This results in moderate central canal narrowing with moderate cord deformity at this level. The thoracic spinal cord is displaced to the right at this level due to the left para central lesion. There is also small amount of T2 hyperintense, T1 hyperintense epidural signal adjace nt to this lesion. This could represent blood products in the setting of a tiny epidural hematoma. Petersen rgical excision recommended for tissue diagnosis. This report was called/faxed to the referring physi kade following dictation. ACT 112: Negative or not required by law. Electronically signed by: Khanh Burton M.D. 09/20/2021 9:24 AM
--- NOTE | 2021-09-20 10:13 | History & Physical Bridge Note ---
Date of Service September 20, 2021 History & Physical Bridge Note I have examined the patient, reviewed the History & Physical and in the interval since the performance of the History & Physical I have noted the following changes of clinical significance: no changes noted Lumbar decompression and fusion L2-L3 hardware removal L3-S1
[2021-09-20] MEDS ORDERED: HYDROmorphone INJ 1 MG/ML SYRINGE IV PRN (10:19)
[2021-09-20] MEDS ORDERED: fentaNYL citrate 100 MCG/2 ML VIAL IV PRN (10:19)
[2021-09-20] MEDS ORDERED: LABETALOL HCL IV 5 MG/ML 20ML IV PRN (10:19)
[2021-09-20] MEDS ORDERED: ePHEDrine sulfate 50 MG/ML AMP IV PRN (10:19)
[2021-09-20] MEDS ORDERED: ATROPINE SULFATE 0.1 MG/ML 10ML SYR IV PRN (10:19)
[2021-09-20] MEDS ORDERED: PHENYLEPHRINE 100MCG/ML 5ML SYR IV PRN (10:19)
[2021-09-20] MEDS ORDERED: ONDANSETRON INJ 2 MG/ML 2 ML VIAL IV PRN ×2 (10:19→14:35)
--- NOTE | 2021-09-20 10:26 | Anesthesiology Consultation ---
Date of Service September 20, 2021 Assessment & Plan (1) Encounter for pre-operative examination: Chart Review Chart Review: Acceptable Risk for Surgery and Patient NOT seen in Pre Admission Testing Consults Requested none History Surgery Operation Date: 09/20/21 11:05 Proposed Procedures p L2-L3 Decompression Fusion, L3-S1 Hardware Removal - Maciel Gutierrez DO Height/Weight Height: 6 ft 6 in Weight: 130.6 kg Allergies Allergy/AdvReac Type Severity Reaction Status Date / Time adhesive tape Allergy Intermediate Blisters Verified 09/19/21 10:15 with rough clear tape iron AdvReac Intermediate ELEVATES Verified 09/19/21 10:15 LIVER ENZYMES TO DANGEROUS LEVELS lorazepam [From Ativan] AdvReac Intermediate HALLUCINATI Verified 09/19/21 10:15 ONS morphine AdvReac Intermediate HALLUCINATI Verified 09/19/21 10:15 ONS Medications Home Medications Medication Instructions Recorded Confirmed Last Taken lisinopril 20 mg tablet 40 mg PO QAM 10/30/18 09/19/21 09/18/21 testosterone cypionate 200 mg/mL 1 dose IM DIRECTED 10/30/18 09/19/21 09/18/21 intramuscular kit gabapentin 100 mg capsule 300 mg PO TID 05/13/20 09/19/21 09/19/21 acetaminophen 500 mg tablet 1,000 mg PO BID 09/02/21 09/19/21 09/18/21 (Tylenol Extra Strength) galcanezumab-gnlm 120 mg/mL 120 mg SUBCUT MONTHLY 09/02/21 09/19/21 09/18/21 subcutaneous pen injector (Emgality Pen) loratadine 10 mg tablet 10 mg PO QAM 09/02/21 09/19/21 09/18/21 Active Medications Generic Name Dose Route Start Last Admin Trade Name Freq PRN Reason Stop Dose Admin Diphenhydramine HCl 25 mg 09/19/21 12:09/19/21 21:48 Diphenhydramine Capsule 25 Mg Cap PO 10/19/21 12:26 25 mg Q6H PRN Administration Allergic Rhinitis/Insomnia Gabapentin 300 mg 09/19/21 12:27 09/20/21 08:52 Gabapentin 300 Mg Cap PO 10/19/21 12:26 300 mg TID SABRINA Administration Hydroxyzine HCl 25 mg 09/19/21 12:27 09/20/21 01:30 Hydroxyzine Hcl 25 Mg Tab PO 10/19/21 12:26 25 mg Q8H PRN Administration Anxiety Lactated Ringer's 1,000 mls @ 75 mls/hr 09/19/21 12:27 09/20/21 01:32 Lr IV 10/19/21 12:26 75 mls/hr .[id number] SABRINA Administration Lisinopril 40 mg 09/19/21 12:27 09/20/21 08:52 Lisinopril 40 Mg Tab PO 10/19/21 12:26 40 mg QAM SABRINA Administration Loratadine 10 mg 09/19/21 12:27 09/20/21 08:52 Loratadine 10 Mg Tab PO 10/19/21 12:26 10 mg QAM SABRINA Administration Ondansetron HCl 4 mg 09/19/21 12:27 09/20/21 00:59 Ondansetron 4 Mg Od Tab PO 10/19/21 12:26 4 mg Q6H PRN Administration Nausea Oxycodone HCl 5 - 10 mg 09/19/21 12:27 09/20/21 00:59 Oxycodone Hcl Ir 5 Mg Tab (Immediate Release) PO 10/03/21 12:26 10 mg Q4H PRN Administration mod to severe pain Tramadol HCl 50 - 100 mg 09/19/21 12:27 09/19/21 20:33 Tramadol Hcl 50 Mg Tablet PO 10/19/21 12:26 50 mg Q4H PRN Administration Moderate-Severe pain & Pre PT NPO Date Last Intake of Fluids: 09/19/21 Time Last Intake of Fluids: 23:00 Date Last Intake of Solids: 09/19/21 Time Last Intake of Solids: 23:00 Past Medical History Medical History (Updated 09/20/21 @ 10:27 by Khanh Calderón MD) Anemia Chronic pain Cluster headache History of depression Pain aggravates depression and anxiety- currently stable and controlled History of migraine Stable- follows with neuro for Botox HTN (hypertension) related to pain Hyperlipemia improving, no longer on med Incomplete right bundle branch block Obesity Osteoarthritis 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 No issues per anesthesia post-op progress note. History of partial nephrectomy History of repair of hiatal hernia History of sinus surgery removal of benign mass History of surgery on left wrist Fusion History of tonsillectomy and adenoidectomy Social History Smoking Status: Never smoker Hx Alcohol Use: No Hx Substance Use: No substance use type: does not use Physical Exam Vital Signs Last Vital Signs Temp 36.7 C 09/20/21 10:13 Pulse 72 09/20/21 10:13 Resp 18 09/20/21 10:13 BP 158/104 H 09/20/21 10:13 Pulse Ox 96 09/20/21 10:13 Testing Laboratory Results 09/19/21 08:10 09/19/21 08:10 Electrocardiogram Date: 09/19/21 DICTATED BY:Cyril Main MD Test Reason : Blood Pressure : / mmHG Vent. Rate : 071 BPM Atrial Rate : 071 BPM P-R Int : 188 ms QRS Dur : 102 ms QT Int : 406 ms P-R-T Axes : 031 007 038 degrees QTc Int : 441 ms Normal sinus rhythm Incomplete right bundle branch block Borderline ECG When compared with ECG of 13-MAY-2020 14:56, No significant change was found Confirmed by Cyril Main ([id number]) on 09/19/2021 1:50:15 PM Referred By: REFERRED SELF Confirmed By:Noah Main Chest X-Ray Date: 09/19/21 XR chest 1V portable CLINICAL HISTORY: Preoperative evaluation. COMPARISON STUDY: No previous studies for comparison. FINDINGS: Mild elevation of the left hemidiaphragm is unchanged. Lungs are clear. There is no pneumothorax or pleural effusion. Cardiac size is normal. Mediastinal contours are normal. There is no evidence for pulmonary edema. IMPRESSION: No acute cardiopulmonary findings. ACT 112: Negative or not required by law. Electronically signed by: Arnie May M.D. 09/19/2021 9:21 AM Dictated:09/19/21 0917 Transcribed: 09/19/21916
--- NOTE | 2021-09-20 10:34 | Hospitalist Progress Note ---
Date of Service September 20, 2021 Assessment & Plan (1) Neurogenic claudication due to lumbar spinal stenosis: Plan: planned for surgery with Dr. Gutierrez today feeling well -pain/wound management per Ortho -VTE prophylaxis per Ortho, encourage early ambulation -incentive spirometry encouraged -CBC, BMP in am -PT/OT and activity restrictions per Ortho Cont gabapentin per home regimen. (2) History of migraine: Plan: chronic, stable. Appears controlled. Pt takes a subQ injection which he has already taken this month. Headache-free today. (3) HTN (hypertension): Plan: Arouund goal, am lisinopril was given appropriately. Cont to monitor perioperatively. (4) DVT prophylaxis: Plan: SCDs in preparation for back surgery Full Code Dispo-to OR today [facility] Admission and Anticipated Discharge Date Admission Date: September 19, 2021 Subjective 51 yo M with h/o HTN and acute on chronic neurogenic claudication due to lumbar spinal stenosis. worsened back pain, awaiting back surgery today has had surgery in the past with a post-operative right leg numbness that persists Denies chest pain, SOB or other issues. Review of Systems Review of Systems: All systems were reviewed and negative except as indicated above. Physical Exam Physical Exam: CONSTITUTIONAL: WNWD, vitals as above, generally well-appearing, NAD EYES: normal conjunctivae, no scleral icterus ENT: external ear and nose normal, MMM NECK: trachea midline RESPIRATORY: clear to auscultation bilaterally, no crackles, rales or wheezes, normal respiratory effort CARDIOVASCULAR: regular rate and rhythm, S1 and 2 heard without murmurs, gallops or rubs, no JVD, no peripheral edema GASTROINTESTINAL: soft, nontender, ND, no guarding MUSCULOSKELETAL: strength 5/5 throughout, head is normocephalic and atraumatic, neck supple, normal palpation of chest wall without tenderness. Gait not assessed. SKIN: warm and dry NEUROLOGIC: could not elicit patellar DTR as patient was tensing, CN 2-12 grossly intact, +sensory deficit right leg from the hip down to the toes compared with left side, normal cognition, normal speech, no tremor PSYCHIATRIC: alert cooperative and oriented to person, place and time. Euthymic mood, makes good eye contact, language grossly intact, recent and remote memory grossly intact. Results & Data Results & Data ([place]) Vital Signs (Past 12 Hours) Vital Signs Temp Pulse Resp BP BP Pulse Ox 09/20/21 10:13 36.7 C 72 18 158/104 H 96 09/20/21 07:00 36.8 C 58 L 16 138/88 94 09/19/21 22:35 36.5 C 62 18 146/89 H 93 Diagnostic Findings Thoracic Spine MRI 09/20/21 12:33 THORACIC SPINE MRI WITH AND WITHOUT CONTRAST HISTORY: abnormal finding on lumbar scan TECHNIQUE: Multiplanar multisequence MRI of the thoracic spine was performed both before and after the intravenous administration of contrast. COMPARISON: Lumbar spine MRI 09/19/2021. FINDINGS: No fractures within the thoracic spine. Mild disc space narrowing throughout the thoracic spine. There is a T8 vertebral body hemangioma. The thoracic spinal cord which is a normal signal intensity. Paravertebral soft tissues are unremarkable. Best seen on sagittal images 9 and axial image 32 of series 10 there is a 6 mm round T2 and T1 hypointense nodule immediately posterior to the T10 vertebral body. This corresponds to the abnormality seen on the prior lumbar spine MRI. This is just to the left of midline results in moderate central canal narrowing with moderate deformity of the left side of the thoracic spinal cord and displacement of the thoracic spinal cord to the right. This appears to be extradural. There is T1 and T2 hyperintense signal within the epidural space adjacent to this lesion. Therefore, this could represent a small amount of blood products. This abnormality demonstrates primarily peripheral enhancement. No additional extradural lesions identified. No fracture or subluxation within the thoracic spine. There is mild dextroscoliosis. IMPRESSION: There is a 6 mm round lesion immediately posterior to the T10 vertebral body which corresponds to the prior lumbar spine MRI abnormality. This is nonspecific but could represent a sequestered disc fragment or extradural mass. This results in moderate central canal narrowing with moderate cord deformity at this level. The thoracic spinal cord is displaced to the right at this level due to the left paracentral lesion. There is also small amount of T2 hyperintense, T1 hyperintense epidural signal adjacent to this lesion. This could represent blood products in the setting of a tiny epidural hematoma. Surgical excision recommended for tissue diagnosis. This report was called/faxed to the referring physician following dictation. ACT 112: Negative or not required by law. Electronically signed by: Khanh Burton M.D. 09/20/2021 9:24 AM Medications Administered Current Inpatient Medications Acetaminophen (Acetaminophen 500 Mg Tab) 1,000 mg PO Q8H PRN PRN Reason: MILD Pain Scale 1,2,3 & Pre PT Stop: 10/19/21 12:26 Al Hydrox/Mg Hydrox/Simethicone (Aluminum/Magnesium Susp 30 Ml Udc) 30 ml PO Q6H PRN PRN Reason: Dyspepsia Stop: 10/19/21 12:26 Atropine Sulfate (Atropine Sulfate 0.1 Mg/Ml 10ml Syr) 0.5 mg IV Q1M PRN PRN Reason: PACU Use-HR<40 &/or Bradycardi Stop: 09/20/21 18:19 Bisacodyl (Bisacodyl 10 Mg Supp) 10 mg W[place] DAILY PRN PRN Reason: Constipation Stop: 10/21/21 08:04 Diphenhydramine HCl (Diphenhydramine Capsule 25 Mg Cap) 25 mg PO Q6H PRN PRN Reason: Allergic Rhinitis/Insomnia Stop: 10/19/21 12:26 Last Admin: 09/19/21 21:48 Dose: 25 mg Documented by: Ephedrine Sulfate (Ephedrine Sulfate 50 Mg/Ml Amp) 5 mg IV Q5M PRN PRN Reason: PACU Use Only-SBP<90 mmHg Stop: 09/20/21 18:19 Fentanyl Citrate (Fentanyl Citrate 100 Mcg/2 Ml Vial) 25 mcg IV Q5M PRN PRN Reason: PACU Use Only-Pain Stop: 09/20/21 18:20 Gabapentin (Gabapentin 300 Mg Cap) 300 mg PO TID SABRINA Stop: 10/19/21 12:26 Last Admin: 09/20/21 08:52 Dose: 300 mg Documented by: Hydromorphone HCl (Hydromorphone Inj 1 Mg/Ml Syringe) 0.25 mg IV Q5M PRN PRN Reason: PACU Use Only-Pain Stop: 09/20/21 18:20 Hydroxyzine HCl (Hydroxyzine Hcl 25 Mg Tab) 25 mg PO Q8H PRN PRN Reason: Anxiety Stop: 10/19/21 12:26 Last Admin: 09/20/21 01:30 Dose: 25 mg Documented by: Lactated Ringer's (Lr) 1,000 mls @ 75 mls/hr IV .[id number] [facility] Stop: 10/19/21 12:26 Last Admin: 09/20/21 01:32 Dose: 75 mls/hr Documented by: Promethazine HCl 12.5 mg/ (Sodium Chloride) 50.5 mls @ 202 mls/hr IV Q6H PRN PRN Reason: Nausea &/or Vomiting Stop: 10/19/21 12:26 Acetaminophen (Ofirmev) 1,000 mg in 100 mls @ 400 mls/hr IV Q8H PRN PRN Reason: Pain Rating 1-3 & Pre PT Stop: 09/22/21 12:26 Cefazolin Sodium (Ancef 3000mg) 72.5 mls @ 130 mls/hr IV PREOP [facility]; Protocol Stop: 09/21/21 05:59 Labetalol HCl (Labetalol Hcl Iv 5 Mg/Ml 20ml) 5 mg IV Q5M PRN PRN Reason: PACU Use-SBP>160 or DBP>100 Stop: 09/20/21 18:20 Lisinopril (Lisinopril 40 Mg Tab) 40 mg PO [facility] Stop: 10/19/21 12:26 Last Admin: 09/20/21 08:52 Dose: 40 mg Documented by: Loratadine (Loratadine 10 Mg Tab) 10 mg PO [facility] Stop: 10/19/21 12:26 Last Admin: 09/20/21 08:52 Dose: 10 mg Documented by: Magnesium Hydroxide (Magnesium Hydroxide Susp 30 Ml Udc) 30 ml PO Q24H PRN PRN Reason: Constipation Stop: 10/19/21 12:26 Metoclopramide HCl (Metoclopramide Hcl Inj 5 Mg/Ml 2 Ml Vial) 10 mg IV Q6H PRN PRN Reason: Nausea &/or Vomiting Stop: 10/19/21 12:26 Naloxone HCl (Naloxone Hcl 0.4 Mg/1 Ml Vial/Carp) 0.1 mg IV Q5M PRN PRN Reason: Oversedation/respiratory dep Stop: 10/19/21 12:26 Ondansetron HCl (Ondansetron Inj 2 Mg/Ml 2 Ml Vial) 4 mg IV Q6H PRN PRN Reason: Nausea &/or Vomiting Stop: 10/19/21 12:26 Ondansetron HCl (Ondansetron 4 Mg Od Tab) 4 mg PO Q6H PRN PRN Reason: Nausea Stop: 10/19/21 12:26 Last Admin: 09/20/21 00:59 Dose: 4 mg Documented by: Ondansetron HCl (Ondansetron Inj 2 Mg/Ml 2 Ml Vial) 4 mg IV ONCE PRN PRN Reason: PACU Use Only-Nausea/Vomiting Stop: 09/20/21 18:20 Oxycodone HCl (Oxycodone Hcl Ir 5 Mg Tab (Immediate Release)) 5 - 10 mg PO Q4H PRN PRN Reason: mod to severe pain Stop: 10/03/21 12:26 Last Admin: 09/20/21 00:59 Dose: 10 mg Documented by: Phenylephrine HCl (Phenylephrine 100mcg/Ml 5ml Syr) 100 mcg IV Q5M PRN PRN Reason: PACU Use Only-SBP<90 or HR>70 Stop: 09/20/21 18:20 Tramadol HCl (Tramadol Hcl 50 Mg Tablet) 50 - 100 mg PO Q4H PRN PRN Reason: Moderate-Severe pain & Pre PT Stop: 10/19/21 12:26 Last Admin: 09/19/21 20:33 Dose: 50 mg Documented by:
[2021-09-20] MEDS ORDERED: HYDROmorphone INJ 2 MG/ML SYR/VIAL ONE (11:27)
[2021-09-20] MEDS ORDERED: ONDANSETRON INJ 2 MG/ML 2 ML VIAL ONE (11:32)
[2021-09-20] MEDS ORDERED: PROPOFOL IV EMULSION 10 MG/ML 20 ML VIAL IV ONE (11:32)
[2021-09-20] MEDS ORDERED: DEXAMETHASONE SOD INJ 4 MG/ML VIAL ONE (11:32)
[2021-09-20] MEDS ORDERED: GLYCOPYRROLATE 0.2 MG/ML VIAL ONE (11:32)
[2021-09-20] MEDS ORDERED: PHENYLEPHRINE 100MCG/ML 5ML SYR ONE (11:32)
[2021-09-20] MEDS ORDERED: ROCURONIUM BROMIDE 10 MG/ML 5 ML VIAL IV ONE (11:32)
[2021-09-20] MEDS ORDERED: NEOSTIGMINE METHYLSULFATE 1 MG/ML 10ML VIAL ONE (11:32)
[2021-09-20] MEDS ORDERED: LARYING-O-JET KIT (LTA) ONE (11:32)
[2021-09-20] MEDS ORDERED: LIDOCAINE 2% 2 ML VIAL/AMP(20MG/ML) INFIL ONE (11:32)
[2021-09-20] MEDS ORDERED: ePHEDrine sulfate 50 MG/ML SYR ONE (11:32)
[2021-09-20] MEDS ORDERED: FLOSEAL HEMOSTATIC MATRIX 10ML TOP ONE (12:54)
[2021-09-20] MEDS ORDERED: BUPIVACAINE 0.5 % 5 MG/1 ML MPF 30ML VIAL INFIL ONE (12:56)
[2021-09-20] MEDS ORDERED: EPINEPHrine INJ 1 MG/ML AMP IM ONE (12:58)
--- NOTE | 2021-09-20 12:59 | Operative Report ---
Post Operative Report Pre & Post Diagnosis Operation Date: 09/20/21 11:05 Pre-Op Diagnosis: Neurogenic claudication due to lumbar spinal stenosis Post-Op Diagnosis: Neurogenic claudication due to lumbar spinal stenosis I identified the patient and participated in the time-out.: Yes Procedure Operation Date: 09/20/21 11:05 Actual Procedures #1 removal of posterior instrumentation L3-S1. #2 exploration of fusion L3-S1. #3 lumbar decompression with bilateral medial facetectomies and foraminotomies L1-L2 L2-L3. #4 posterior spinal fusion L2-L3. #5 placed posterior instrumentation L2-S1. #6 interbody fusion L2-L3. #7 placement of titanium cage 12 x 26 mm L2-L3. #8 placement locally harvested morselized autograft in the posterior gutters. #9 placement infuse collagen sponge, master graft in the posterior lateral gutters and I factor in the interbody space. Surgeon Maciel Gutierrez, DO [employer] Chi Hoyt Estimated Blood Loss 250 Findings See Below The patient is 6 foot 6 weighing over 130 kg with a BMI in excess of 33. The patient's body habitus did contribute to significant technical difficulty requiring her deepest retractors longus instruments in order to perform his procedure. This had at least 50% increase to the operative time. Specimens None Indications This is a 51-year-old male who presents above-mentioned diagnosis after failing course of nonoperative care is here for the above-mentioned procedure. Description of Procedure Patient was met with identified informed consent obtained. Patient was then taken to the operative suite underwent ablation placed in a prone position on the Jonn table on top of the Palmer frame. All bony prominences well-padded eyes inspected to ensure no external pressure placed upon the bed at this point the lumbar spine was prepped and draped in a sterile fashion. Sharp dissection with the assistance of Bovie cautery was performed down to and exposing the lamina and transverse processes of L2 and instrumentation at L3-L4-L5 and S1 bilaterally. And then proceeded to remove the hardware explore the fusion mass noting it to be mature and intact. Then performed a complete laminectomy of L2 partial laminectomy L1 including bilateral medial facetectomy and foraminotomies addressing severe spinal stenosis. After this was complete pedicle screws were placed in L2-L3-L4 and the S1 levels bilaterally with assistance of fluoroscopy and appropriately sized laila placed. By way of a transforaminal approach on the right complete discectomy of L 2 L3 was performed endplates curetted to subcortical bleeding bone and a 12 x 26 mm titanium cage filled I factor tapped in position. Rods were then compressed locked in final position bilaterally. The transverse processes of L2 and L3 burred to subcortical bleeding bone. Infuse collagen sponge master graft and local autograft was placed in the posterior gutters. 15 round LUDIN drain inserted. The incision was then closed with 1 Vicryl in the fascia 2-0 Vicryl subcutaneously and 4 Monocryl for final skin closure. Steri-Strip sterile dressings placed. Patient will continue PACU stable condition. Please note spinal cord monitoring was utilized at the procedure no changes noted. Lastly Chi Hoyt was present at the entire surgery and while the patient positioning complex portions of the surgery and final skin closure. I attest to the content of the Intraoperative Record and any orders documented therein. Any exceptions are noted below.
--- NOTE | 2021-09-20 13:10 | Fluoroscopy Report ---
INTRAOPERATIVE RADIOGRAPHS CLINICAL HISTORY: L2-S1 spinal fusion. Fluoroscopy time: 13 seconds. FINDINGS: 3 spot fluoroscopic views of the lumbar spine are presented. There has been discectomy at L 2-L3, L3-L4, L4-L5, and L5-S1 with laminectomy and posterior fusion at these levels. The orthopedic h ardware appears intact. IMPRESSION: Intraoperative images of the lumbar spine as above. Electronically signed by: Derrick Santiago M.D. 09/20/2021 1:08 PM
--- NOTE | 2021-09-20 14:03 | Anesthesiology Progress Note ---
Date of Service September 20, 2021 Anesthesia Post Procedure Vital Signs Vital Signs: Temp Pulse Pulse Resp BP BP Pulse Ox 09/20/21 13:50 36.5 C 59 L 14 129/68 96 09/20/21 13:40 55 L 19 109/57 L 99 09/20/21 13:30 73 13 109/62 96 09/20/21 13:22 36.8 C 55 L 12 109/44 L 98 09/20/21 10:13 36.7 C 72 18 158/104 H 96 09/20/21 07:00 36.8 C 58 L 16 138/88 94 09/19/21 22:35 36.5 C 62 18 146/89 H 93 09/19/21 20:10 36.7 C 58 L 16 170/95 H 95 09/19/21 18:00 36.9 C 76 16 140/80 97 Pain Intensity Lower Back: Pain Intensity: 0 Transfer of Care Handoff Completed per policy Notes Mental Status: alert / awake / arousable Patient Amnestic to Procedure: Yes Nausea / Vomiting: adequately controlled Pain: adequately controlled Airway Patency, RR, SpO2: stable & adequate BP & HR: stable & adequate Hydration State: stable & adequate Anesthetic Complications: no major complications apparent and Pt Satisfied with anesthetic care
[2021-09-20] MEDS ORDERED: ALUMINUM/MAGNESIUM SUSP 30 ML UDC PO PRN (14:35)
[2021-09-20] MEDS ORDERED: DO NOT ADMINISTER PNEUMOCOCCAL VACCINE PRN (14:35)
[2021-09-20] MEDS ORDERED: PROMETHAZINE HCL 12.5 MG in SODIUM CHLORIDE 0.9% 50 ML IV PRN (14:35)
[2021-09-20] MEDS ORDERED: traMADol HCL 50 MG TABLET PO PRN (14:35)
[2021-09-20] MEDS ORDERED: FAMOTIDINE 20 MG TAB PO PRN (14:35)
[2021-09-20] MEDS ORDERED: ONDANSETRON 4 MG OD TAB PO PRN (14:35)
[2021-09-20] MEDS ORDERED: diphenhydrAMINE Capsule 25 MG CAP PO PRN (14:35)
[2021-09-20] MEDS ORDERED: SOD PHOSPHATE/SOD BIPHOSPHATE ENEMA 132 ML BTL PR PRN (14:35)
[2021-09-20] MEDS ORDERED: hydrOXYzine HCl 25 MG TAB PO PRN (14:35)
[2021-09-20] MEDS ORDERED: DO NOT ADMINISTER FLU VACCINE PRN (14:35)
[2021-09-20] MEDS ORDERED: METOCLOPRAMIDE HCL INJ 5 MG/ML 2 ML VIAL IV PRN (14:35)
[2021-09-20] MEDS ORDERED: ACETAMINOPHEN 500 MG TAB PO PRN (14:35)
[2021-09-20] MEDS ORDERED: bisacodyL 10 MG SUPP PR PRN (14:35)
[2021-09-20] MEDS ORDERED: oxyCODONE HCL IR 5 MG TAB (IMMEDIATE RELEASE) PO PRN (14:35)
[2021-09-20] MEDS ORDERED: NALOXONE HCL 0.4 MG/1 ML VIAL/CARP IV PRN (14:35)
[2021-09-20] MEDS ORDERED: ACETAMINOPHEN 1,000 MG/100 ML VIAL IV PRN (14:35)
[2021-09-20] MEDS ORDERED: HYDROmorphone INJ 0.5 MG/0.5 ML SYR IV PRN (14:35)
[2021-09-20] MEDS ORDERED: MAGNESIUM HYDROXIDE SUSP 30 ML UDC PO PRN (14:35)
[2021-09-20] MEDS: HYDROmorphone INJ 1 MG/ML SYRINGE IV PRN (15:10)
[2021-09-20] MEDS: KETOROLAC 30 MG/ML VIAL IV SCH (17:58)
[2021-09-20] MEDS: ceFAZolin 2000MG 2,000 MG/15 ML SYR IV SCH (18:32)
[2021-09-20] MEDS: traMADol HCL 50 MG TABLET PO PRN (21:25)
[2021-09-20] MEDS: DOCUSATE SODIUM/SENNA 50/8.6MG TAB PO SCH (21:26)
[2021-09-20] MEDS: ONDANSETRON INJ 2 MG/ML 2 ML VIAL IV PRN (23:59)
[2021-09-21] MEDS: oxyCODONE HCL IR 5 MG TAB (IMMEDIATE RELEASE) PO PRN ×4 (00:01→21:25)
[2021-09-21] MEDS: KETOROLAC 30 MG/ML VIAL IV SCH ×3 (00:02→12:03)
[2021-09-21] MEDS: ceFAZolin 2000MG 2,000 MG/15 ML SYR IV SCH (02:20)
[2021-09-21] MEDS: POLYETHYLENE (MIRALAX) 17 GM PACK PO SCH ×3 (05:54→21:13)
[2021-09-21] MEDS: ONDANSETRON 4 MG OD TAB PO PRN ×2 (05:59→21:20)
[2021-09-21 07:40] LABS: Hematocrit (blood only) 34.8 % (42-52); Hemoglobin 10.8 g/dL (14.0-18.0); Immature Granulocytes # (auto) 0.01 K/uL (0.00-0.02); Immature Granulocytes % (auto) 0.1 %; Lymphocytes # (auto) 0.51 K/uL (1.2-3.4); Lymphocytes % (auto) 4.1 %; Mean Corpuscular Hemoglobin 26.5 pg (25-34); Mean Corpuscular Volume 85.5 fL (80-100); Monocytes # (auto) 1.25 K/uL (0.11-0.59); Neutrophils % (auto) 85.8 %; Platelet Count 261 K/uL (130-400); Red Blood Count 4.07 M/uL (4.7-6.1); White Blood Count 12.47 K/uL (4.8-10.8)
[2021-09-21] MEDS: HYDROmorphone INJ 1 MG/ML SYRINGE IV PRN (07:51)
[2021-09-21] MEDS ORDERED: bisacodyL 10 MG SUPP PR PRN (08:05)
[2021-09-21 08:09] LABS: BUN Creatinine Ratio 10.4 (10-20); Calcium 9.3 mg/dl (8.5-10.1); Creatinine Clr Calc Pharmacy 136.6 ml/min; Est GFR (African American) 103.8 ml/min; Est GFR (Non-African American) 89.5 ml/min
[2021-09-21] MEDS: LORATADINE 10 MG TAB PO SCH (08:56)
[2021-09-21] MEDS: GABAPENTIN 300 MG CAP PO SCH ×3 (08:56→21:14)
[2021-09-21] MEDS: dexAMETHasone 6 MG in SYRINGE 0 ML IV SCH (08:56)
[2021-09-21] MEDS: lisinopril 40 MG TAB PO SCH (08:56)
--- NOTE | 2021-09-21 12:11 | Hospitalist Progress Note ---
Date of Service September 21, 2021 Assessment & Plan (1) Neurogenic claudication due to lumbar spinal stenosis: Plan: POD#1 s/p spinal surgery feeling well but had pain overnight with persistent constipation. -pain/wound management per Ortho -VTE prophylaxis per Ortho, encourage early ambulation -incentive spirometry encouraged -CBC -PT/OT and activity restrictions per Ortho Cont gabapentin per home regimen. (2) Acute postoperative anemia due to expected blood loss: Plan: expected blood loss from surgery, trend cbc in am (3) History of migraine: Plan: chronic, stable. Appears controlled. Pt takes a subQ injection which he has already taken this month. Headache-free today. (4) HTN (hypertension): Plan: Arouund goal, am lisinopril was given appropriately. Cont to monitor perioperatively. (5) DVT prophylaxis: Plan: SCDs Full Code Dispo-to home in 1-2 days when cleared by ortho [facility] Admission and Anticipated Discharge Date Admission Date: September 20, 2021 Subjective 51 yo M with h/o HTN and acute on chronic neurogenic claudication due to lumbar spinal stenosis. post op he is reporting an almost complete resolution of right leg numbness he is very happy about this still constipation rough night with pain and constipation Review of Systems Review of Systems: All systems were reviewed and negative except as indicated above. Physical Exam Physical Exam: CONSTITUTIONAL: WNWD, vitals as above, generally well- appearing, NAD EYES: normal conjunctivae, no scleral icterus ENT: external ear and nose normal, MMM NECK: trachea midline RESPIRATORY: clear to auscultation bilaterally, no crackles, rales or wheezes, normal respiratory effort CARDIOVASCULAR: regular rate and rhythm, S1 and 2 heard without murmurs, gallops or rubs, no JVD, no peripheral edema GASTROINTESTINAL: soft, nontender, ND, no guarding MUSCULOSKELETAL: strength 5/5 throughout, head is normocephalic and atraumatic, neck supple, normal palpation of chest wall without tenderness. Gait not assessed. SKIN: warm and dry, back wound is clean and dry, +LUDIN drain in place with serosanguinous fluid present. NEUROLOGIC:+sensory deficit right leg improved, now there is just a small lateral thigh area on the right with decreased sensation, normal cognition, normal speech, no tremor PSYCHIATRIC: alert cooperative and oriented to person, place and time. Euthymic mood, makes good eye contact, language grossly intact, recent and remote memory grossly intact. Results & Data Results & Data ([facility]) Vital Signs (Past 12 Hours) Vital Signs Temp Pulse Resp BP BP Pulse Ox 09/21/21 11:13 37 C 80 16 121/70 91 09/21/21 07:12 36.5 C 79 16 135/76 91 09/21/21 03:35 37.2 C 82 18 142/77 H 94 Laboratory Results Short CBC 09/21/21 Range/Units 07:12 WBC 12.47 H (4.8-10.8) K/uL Hgb 10.8 L (14.0-18.0) g/dL Hct 34.8 L (42-52) % Plt Count 261 (130-400) K/uL BMP 09/21/21 07:12 Sodium 139 Potassium 4.0 Chloride 106 Carbon Dioxide 29 BUN 10 Creatinine 0.98 Glucose 125 H Calcium 9.3 Medications Administered Current Inpatient Medications Acetaminophen (Acetaminophen 500 Mg Tab) 1,000 mg PO Q8H PRN PRN Reason: MILD Pain Scale 1,2,3 & Pre PT Stop: 10/19/21 12:26 Al Hydrox/Mg Hydrox/Simethicone (Aluminum/Magnesium Susp 30 Ml Udc) 30 ml PO Q6H PRN PRN Reason: Dyspepsia Stop: 10/19/21 12:26 Bisacodyl (Bisacodyl 10 Mg Supp) 10 mg [place] DAILY PRN PRN Reason: Constipation Stop: 10/21/21 08:04 Diphenhydramine HCl (Diphenhydramine Capsule 25 Mg Cap) 25 mg PO Q6H PRN PRN Reason: Allergic Rhinitis/Insomnia Stop: 10/19/21 12:26 Last Admin: 09/19/21 21:48 Dose: 25 mg Documented by: Famotidine (Famotidine 20 Mg Tab) 20 mg PO Q12H PRN PRN Reason: Dyspepsia Stop: 10/20/21 14:34 Gabapentin (Gabapentin 300 Mg Cap) 300 mg PO TID SABRINA Stop: 10/19/21 12:26 Last Admin: 09/21/21 08:56 Dose: 300 mg Documented by: Hydromorphone HCl (Hydromorphone Inj 0.5 Mg/0.5 Ml Syr) 0.5 mg IV Q3H PRN PRN Reason: MODERATE Pain (Scale 4,5,6) & Pre PT Stop: 10/04/21 14:34 Hydromorphone HCl (Hydromorphone Inj 1 Mg/Ml Syringe) 1 mg IV Q3H PRN PRN Reason: SEVERE Pain (Scale 7,8,9,10) Stop: 10/04/21 14:34 Last Admin: 09/21/21 07:51 Dose: 1 mg Documented by: Hydroxyzine HCl (Hydroxyzine Hcl 25 Mg Tab) 25 mg PO Q8H PRN PRN Reason: Anxiety Stop: 10/19/21 12:26 Last Admin: 09/21/21 00:00 Dose: 25 mg Documented by: Promethazine HCl 12.5 mg/ (Sodium Chloride) 50.5 mls @ 202 mls/hr IV Q6H PRN PRN Reason: Nausea &/or Vomiting Stop: 10/19/21 12:26 Acetaminophen (Ofirmev) 1,000 mg in 100 mls @ 400 mls/hr IV Q8H PRN PRN Reason: Pain Rating 1-3 & Pre PT Stop: 09/22/21 12:26 Cefazolin Sodium (Ancef 2000mg) 2,000 mg in 15 mls @ 3.75 mls/min IV Q8H [facility]; Protocol Last Admin: 09/21/21 02:20 Dose: 3.75 mls/min Documented by: Dexamethasone 6 mg/ Syringe 1.5 mls @ 1 mls/min IV DAILY [facility] Stop: 09/23/21 09:02 Last Admin: 09/21/21 08:56 Dose: 1 mls/min Documented by: Influenza Virus Vaccine Quadrival (Do Not Administer Flu Vaccine) 1 ea N/A PRN PRN PRN Reason: Notification Stop: 10/20/21 14:34 Lisinopril (L[facility]opril 40 Mg Tab) [facility] Stop: 10/19/21 12:26 Last Admin: 09/21/21 08:56 Dose: 40 mg Documented by: Loratadine (Loratadine 10 Mg Tab) 10 mg PO QAM [facility] Stop: 10/19/21 12:26 Last Admin: 09/21/21 08:56 Dose: 10 mg Documented by: Magnesium Hydroxide (Magnesium Hydroxide Susp 30 Ml Udc) 30 ml PO Q24H PRN PRN Reason: Constipation Stop: 10/19/21 12:26 Metoclopramide HCl (Metoclopramide Hcl Inj 5 Mg/Ml 2 Ml Vial) 10 mg IV Q6H PRN PRN Reason: Nausea &/or Vomiting Stop: 10/19/21 12:26 Naloxone HCl (Naloxone Hcl 0.4 Mg/1 Ml Vial/Carp) 0.1 mg IV Q5M PRN PRN Reason: Oversedation/respiratory dep Stop: 10/19/21 12:26 Ondansetron HCl (Ondansetron Inj 2 Mg/Ml 2 Ml Vial) 4 mg IV Q6H PRN PRN Reason: Nausea &/or Vomiting Stop: 10/19/21 12:26 Last Admin: 09/20/21 23:59 Dose: 4 mg Documented by: Ondansetron HCl (Ondansetron 4 Mg Od Tab) 4 mg PO Q6H PRN PRN Reason: Nausea Stop: 10/19/21 12:26 Last Admin: 09/21/21 05:59 Dose: 4 mg Documented by: Oxycodone HCl (Oxycodone Hcl Ir 5 Mg Tab (Immediate Release)) 5 - 10 mg PO Q4H PRN PRN Reason: mod to severe pain Stop: 10/03/21 12:26 Last Admin: 09/21/21 05:56 Dose: 10 mg Documented by: Pneumococcal Polyvalent Vaccine (Do Not Administer Pneumococcal Vaccine) 1 ea N/A PRN PRN PRN Reason: Notification Stop: 10/20/21 14:34 Polyethylene Glycol (Polyethylene (Miralax) 17 Gm Pack) 17 gm PO Q6 SABRINA Stop: 10/21/21 05:59 Last Admin: 09/21/21 12:06 Dose: 17 gm Documented by: Senna/Docusate Sodium (Docusate Sodium/Senna 50/8.6mg Tab) 2 tab PO HS SABRINA Stop: 10/20/21 20:59 Last Admin: 09/20/21 21:26 Dose: 2 tab Documented by: Sodium Biphosphate/Sodium Phosphate (Sod Phosphate/Sod Biphosphate Enema 132 Ml Btl) 132 ml MO ONE PRN PRN Reason: Constipation Stop: 10/20/21 14:34 Tramadol HCl (Tramadol Hcl 50 Mg Tablet) 50 - 100 mg PO Q4H PRN PRN Reason: Moderate-Severe pain & Pre PT Stop: 10/19/21 12:26 Last Admin: 09/20/21 21:25 Dose: 50 mg Documented by:
--- NOTE | 2021-09-21 13:52 | Orthopedic Progress Note ---
Date of Service September 21, 2021 Assessment & Plan (1) Neurogenic claudication due to lumbar spinal stenosis: Plan: At this time we will continue physical therapy monitor his LUDIN operatively discharge over the next few days. Admission and Anticipated Discharge Date Admission Date: September 20, 2021 Subjective Back pain is controlled leg symptoms markedly improved Physical Exam Physical Exam: On exam patient is good strength testing appears comfortable. Results & Data ([facility]) Vital Signs (Past 12 Hours) Vital Signs Temp Pulse Resp BP BP Pulse Ox 09/21/21 11:13 37 C 80 16 121/70 91 09/21/21 07:12 36.5 C 79 16 135/76 91 09/21/21 03:35 37.2 C 82 18 142/77 H 94
[2021-09-21] MEDS: DOCUSATE SODIUM/SENNA 50/8.6MG TAB PO SCH (21:20)
[2021-09-21] MEDS: traMADol HCL 50 MG TABLET PO PRN (22:52)
[2021-09-21] MEDS: hydrOXYzine HCl 25 MG TAB PO PRN ×2 (22:53)
[2021-09-22] MEDS: POLYETHYLENE (MIRALAX) 17 GM PACK PO SCH ×4 (00:04→20:13)
[2021-09-22] MEDS: oxyCODONE HCL IR 5 MG TAB (IMMEDIATE RELEASE) PO PRN ×3 (01:33→20:20)
[2021-09-22] MEDS: ONDANSETRON 4 MG OD TAB PO PRN (06:13)
[2021-09-22] MEDS ORDERED: MAGNESIUM CITRATE 296 ML/BTL PO STA (06:33)
[2021-09-22] MEDS: GABAPENTIN 300 MG CAP PO SCH ×3 (07:54→20:20)
[2021-09-22] MEDS: LORATADINE 10 MG TAB PO SCH (07:55)
[2021-09-22] MEDS: lisinopril 40 MG TAB PO SCH (07:55)
[2021-09-22 07:56] LABS: Hematocrit (blood only) 32.5 % (42-52); Hemoglobin 9.9 g/dL (14.0-18.0); Mean Corpuscular Hemoglobin 26.5 pg (25-34); Mean Corpuscular Hgb Conc 30.5 g/dL (32-36); Mean Corpuscular Volume 87.1 fL (80-100); Platelet Count 246 K/uL (130-400); RDW Coefficient of Variation 15.5 % (11.5-14.5); RDW Standard Deviation 49.3 fL (36.4-46.3); Red Blood Count 3.73 M/uL (4.7-6.1)
[2021-09-22] MEDS: dexAMETHasone 6 MG in SYRINGE 0 ML IV SCH (07:56)
--- NOTE | 2021-09-22 08:56 | Hospitalist Progress Note ---
Date of Service September 22, 2021 Assessment & Plan (1) Neurogenic claudication due to lumbar spinal stenosis: Plan: POD#2 s/p spinal surgery feeling well but had pain overnight constipation resolved with MAg citrate -pain/wound management per Ortho -VTE prophylaxis per Ortho, encourage early ambulation -incentive spirometry encouraged -CBC -PT/OT and activity restrictions per Ortho Cont gabapentin per home regimen. (2) Acute postoperative anemia due to expected blood loss: Plan: expected blood loss from surgery, stable blood count. (3) History of migraine: Plan: chronic, stable. Appears controlled. Pt takes a subQ injection which he has already taken this month. Headache-free today. (4) HTN (hypertension): Plan: Arouund goal, am lisinopril was given appropriately. Cont to monitor perioperatively. (5) DVT prophylaxis: Plan: SCDs Full Code Dispo-to home in 1-2 days when [facility] Admission and Anticipated Discharge Date Admission Date: September 20, 2021 Subjective 51 yo M with h/o HTN and acute on chronic neurogenic claudication due to lumbar spinal stenosis. no change in numbness on right leg today constipation has been resolved. rough night with pain again tolerating PO ambulating better this am Review of Systems Review of Systems: All systems were reviewed and negative except as indicated above. Physical Exam Physical Exam: CONSTITUTIONAL: WNWD, vitals as above, generally well- appearing, NAD EYES: normal conjunctivae, no scleral icterus ENT: external ear and nose normal, MMM NECK: trachea midline RESPIRATORY: clear to auscultation bilaterally, no crackles, rales or wheezes, normal respiratory effort CARDIOVASCULAR: regular rate and rhythm, S1 and 2 heard without murmurs, gallops or rubs, no JVD, no peripheral edema GASTROINTESTINAL: soft, nontender, ND, no guarding MUSCULOSKELETAL: strength 5/5 throughout, head is normocephalic and atraumatic, neck supple, normal palpation of chest wall without tenderness. Gait not assessed. SKIN: warm and dry, back wound is clean and dry, +LUDIN drain in place with serosanguinous fluid present. NEUROLOGIC:+sensory deficit right leg improved, now there is just a small lateral thigh area on the right with decreased sensation, normal cognition, normal speech, no tremor PSYCHIATRIC: alert cooperative and oriented to person, place and time. Euthymic mood, makes good eye contact, language grossly intact, recent and remote memory grossly intact. Results & Data Results & Data ([facility]) Vital Signs (Past 12 Hours) Vital Signs Temp Pulse Resp BP Pulse Ox 09/22/21 07:12 36.4 C L 76 16 134/88 94 09/21/21 22:23 36.7 C 74 18 168/3 H 94 Laboratory Results Short CBC 09/22/21 Range/Units 07:35 WBC 9.60 (4.8-10.8) K/uL Hgb 9.9 L (14.0-18.0) g/dL Hct 32.5 L (42-52) % Plt Count 246 (130-400) K/uL Medications Administered Current Inpatient Medications Acetaminophen (Acetaminophen 500 Mg Tab) 1,000 mg PO Q8H PRN PRN Reason: MILD Pain Scale 1,2,3 & Pre PT Stop: 10/19/21 12:26 Al Hydrox/Mg Hydrox/Simethicone (Aluminum/Magnesium Susp 30 Ml Udc) 30 ml PO Q6H PRN PRN Reason: Dyspepsia Stop: 10/19/21 12:26 Bisacodyl (Bisacodyl 10 Mg Supp) 10 mg [place] DAILY PRN PRN Reason: Constipation Stop: 10/21/21 08:04 Diphenhydramine HCl (Diphenhydramine Capsule 25 Mg Cap) 25 mg PO Q6H PRN PRN Reason: Allergic Rhinitis/Insomnia Stop: 10/19/21 12:26 Last Admin: 09/19/21 21:48 Dose: 25 mg Documented by: Famotidine (Famotidine 20 Mg Tab) 20 mg PO Q12H PRN PRN Reason: Dyspepsia Stop: 10/20/21 14:34 Gabapentin (Gabapentin 300 Mg Cap) 300 mg PO TID SABRINA Stop: 10/19/21 12:26 Last Admin: 09/22/21 07:54 Dose: 300 mg Documented by: Hydromorphone HCl (Hydromorphone Inj 0.5 Mg/0.5 Ml Syr) 0.5 mg IV Q3H PRN PRN Reason: MODERATE Pain (Scale 4,5,6) & Pre PT Stop: 10/04/21 14:34 Hydromorphone HCl (Hydromorphone Inj 1 Mg/Ml Syringe) 1 mg IV Q3H PRN PRN Reason: SEVERE Pain (Scale 7,8,9,10) Stop: 10/04/21 14:34 Last Admin: 09/21/21 07:51 Dose: 1 mg Documented by: Hydroxyzine HCl (Hydroxyzine Hcl 25 Mg Tab) 25 mg PO Q8H PRN PRN Reason: Anxiety Stop: 10/19/21 12:26 Last Admin: 09/21/21 22:53 Dose: 25 mg Documented by: Promethazine HCl 12.5 mg/ (Sodium Chloride) 50.5 mls @ 202 mls/hr IV Q6H PRN PRN Reason: Nausea &/or Vomiting Stop: 10/19/21 12:26 Acetaminophen (Ofirmev) 1,000 mg in 100 mls @ 400 mls/hr IV Q8H PRN PRN Reason: Pain Rating 1-3 & Pre PT Stop: 09/22/21 12:26 Cefazolin Sodium (Ancef 2000mg) 2,000 mg in 15 mls @ 3.75 mls/min IV Q8H [facility]; Protocol Last Admin: 09/21/21 02:20 Dose: 3.75 mls/min Documented by: Dexamethasone 6 mg/ Syringe 1.5 mls @ 1 mls/min IV DAILY [facility] Stop: 09/23/21 09:02 Last Admin: 09/22/21 07:56 Dose: 1 mls/min Documented by: Influenza Virus Vaccine Quadrival (Do Not Administer Flu Vaccine) 1 ea N/A PRN PRN PRN Reason: Notification Stop: 10/20/21 14:34 Lisinopril (Lisinopril 40 Mg Tab) [facility] [place] Stop: 10/19/21 12:26 Last Admin: 09/22/21 07:55 Dose: 40 mg Documented by: Loratadine (Loratadine 10 Mg Tab) 10 mg PO QAM [facility] Stop: 10/19/21 12:26 Last Admin: 09/22/21 07:55 Dose: 10 mg Documented by: Magnesium Hydroxide (Magnesium Hydroxide Susp 30 Ml Udc) 30 ml PO Q24H PRN PRN Reason: Constipation Stop: 10/19/21 12:26 Metoclopramide HCl (Metoclopramide Hcl Inj 5 Mg/Ml 2 Ml Vial) 10 mg IV Q6H PRN PRN Reason: Nausea &/or Vomiting Stop: 10/19/21 12:26 Naloxone HCl (Naloxone Hcl 0.4 Mg/1 Ml Vial/Carp) 0.1 mg IV Q5M PRN PRN Reason: Oversedation/respiratory dep Stop: 10/19/21 12:26 Ondansetron HCl (Ondansetron Inj 2 Mg/Ml 2 Ml Vial) 4 mg IV Q6H PRN PRN Reason: Nausea &/or Vomiting Stop: 10/19/21 12:26 Last Admin: 09/20/21 23:59 Dose: 4 mg Documented by: Ondansetron HCl (Ondansetron 4 Mg Od Tab) 4 mg PO Q6H PRN PRN Reason: Nausea Stop: 10/19/21 12:26 Last Admin: 09/22/21 06:13 Dose: 4 mg Documented by: Oxycodone HCl (Oxycodone Hcl Ir 5 Mg Tab (Immediate Release)) 5 - 10 mg PO Q4H PRN PRN Reason: mod to severe pain Stop: 10/03/21 12:26 Last Admin: 09/22/21 06:12 Dose: 10 mg Documented by: Pneumococcal Polyvalent Vaccine (Do Not Administer Pneumococcal Vaccine) 1 ea N/A PRN PRN PRN Reason: Notification Stop: 10/20/21 14:34 Polyethylene Glycol (Polyethylene (Miralax) 17 Gm Pack) 17 gm PO Q6 SABRINA Stop: 10/21/21 05:59 Last Admin: 09/22/21 06:11 Dose: 17 gm Documented by: Senna/Docusate Sodium (Docusate Sodium/Senna 50/8.6mg Tab) 2 tab PO HS SABRINA Stop: 10/20/21 20:59 Last Admin: 09/21/21 21:20 Dose: 2 tab Documented by: Sodium Biphosphate/Sodium Phosphate (Sod Phosphate/Sod Biphosphate Enema 132 Ml Btl) 132 ml [place] ONE PRN PRN Reason: Constipation Stop: 10/20/21 14:34 Tramadol HCl (Tramadol Hcl 50 Mg Tablet) 50 - 100 mg PO Q4H PRN PRN Reason: Moderate-Severe pain & Pre PT Stop: 10/19/21 12:26 Last Admin: 09/21/21 22:52 Dose: 100 mg Documented by:
--- NOTE | 2021-09-22 10:45 | Orthopedic Progress Note ---
Date of Service September 22, 2021 Assessment & Plan (1) Neurogenic claudication due to lumbar spinal stenosis: Plan: The patient is doing well at this point. He is postoperative day #2. We are going to keep him today and likely discharge him to home tomorrow. We will continue with GI DVT prophylaxis as well as pain control measures. Admission and Anticipated Discharge Date Admission Date: September 20, 2021 Subjective Patient seen bedside in room 377. He is doing well today he has a little bit of pain in the right groin. He has little bit of paresthesia in the right anterior thigh as well. He feels the strength has improved. Has been walking. He has had a bowel movement. He denies any other numbness, tingling, or paresthesias. Physical Exam Physical Exam: On exam he is alert and oriented. He is able to lift his legs without difficulties. His dressings clean dry and intact his LUDIN drain is in place and had 70 cc out on the previous shift and 60 prior to that. His abdomen is soft and nontender. His calves are supple nontender. Strength and sensation are grossly intact Results & Data ([facility]) Vital Signs (Past 12 Hours) Vital Signs Temp Pulse Resp BP Pulse Ox 09/22/21 07:12 36.4 C L 76 16 134/88 94
[2021-09-22] MEDS: traMADol HCL 50 MG TABLET PO PRN (11:52)
[2021-09-22] MEDS: ONDANSETRON INJ 2 MG/ML 2 ML VIAL IV PRN ×2 (11:53→20:20)
[2021-09-22] MEDS: DOCUSATE SODIUM/SENNA 50/8.6MG TAB PO SCH (20:13)
[2021-09-23] MEDS: hydrOXYzine HCl 25 MG TAB PO PRN (01:03)
[2021-09-23] MEDS: traMADol HCL 50 MG TABLET PO PRN ×2 (01:03→11:10)
[2021-09-23] MEDS: ONDANSETRON INJ 2 MG/ML 2 ML VIAL IV PRN (05:53)
[2021-09-23] MEDS: oxyCODONE HCL IR 5 MG TAB (IMMEDIATE RELEASE) PO PRN (05:53)
--- NOTE | 2021-09-23 07:36 | XRay Report ---
XR chest 1V portable CLINICAL HISTORY: cough. COMPARISON STUDY: 09/19/2021 TECHNIQUE: 1 view of the chest FINDINGS: Single frontal view of the chest demonstrates the cardiomediastinal silhouette to be within normal li mits. The lungs are clear of alveolar opacities. There is no evidence for pleural effusion. There is no evidence for vascular congestion. There is no acute osseous pathology. IMPRESSION: No acute cardiopulmonary disease. There is no significant interval change. ACT 112: Negative or not required by law. Electronically signed by: Eusebio Dillon M.D. 09/23/2021 7:35 AM
[2021-09-23 07:37] LABS: Hemoglobin 9.3 g/dL (14.0-18.0); Mean Corpuscular Hemoglobin 26.6 pg (25-34); Mean Corpuscular Volume 88.6 fL (80-100); Mean Platelet Volume 10.2 fL (7.4-10.4); Platelet Count 211 K/uL (130-400); RDW Coefficient of Variation 15.6 % (11.5-14.5); RDW Standard Deviation 50.6 fL (36.4-46.3); White Blood Count 7.33 K/uL (4.8-10.8)
[2021-09-23 08:05] LABS: BUN Creatinine Ratio 15.4 (10-20); Calcium 8.6 mg/dl (8.5-10.1); Creatinine Clr Calc Pharmacy 169.4 ml/min; Est GFR (African American) 121.4 ml/min; Est GFR (Non-African American) 104.7 ml/min; Magnesium 1.9 mg/dl (1.8-2.4); Potassium 3.9 mmol/L (3.5-5.1)
[2021-09-23 08:06] LABS: Phosphorus 3.7 mg/dl (2.5-4.9)
--- NOTE | 2021-09-23 08:15 | Hospitalist Progress Note ---
Date of Service September 23, 2021 Assessment & Plan (1) Neurogenic claudication due to lumbar spinal stenosis: Plan: POD#3 s/p spinal surgery feeling well overall -pain/wound management per Ortho -VTE prophylaxis per Ortho, encourage early ambulation -incentive spirometry encouraged -CBC -PT/OT and activity restrictions per Ortho Cont gabapentin per home regimen. Cough -Patient reports cough overnight Chest x-ray obtained overnight, unremarkable We will add Mucinex and flutter valve, encourage incentive spirometry No fevers or chills Discussed with the patient,that if not improved in the next 2 days, to contact PCP, patient in agreement (2) Acute postoperative anemia due to expected blood loss: Plan: Hgb 9.3 (9.9 yesterday) expected blood loss from surgery, stable blood count. (3) History of migraine: Plan: chronic, stable. Appears controlled. Pt takes a subQ injection which he has already taken this month. Headache-free today. (4) HTN (hypertension): Plan: - continue lisinopril - cont. to monitor (5) DVT prophylaxis: Plan: SCDs Full Code Dispo-to home possibly today (per ortho) Admission and Anticipated Discharge Date Admission Date: September 20, 2021 Subjective Patient seen in follow-up after lumbar surgery Overnight complained of some cough, chest x-ray was obtained, unremarkable Currently sitting up in chair, in no acute distress, also patient seen ambulating in hallways Says that he is having some nasal congestion, and some cough He is using incentive spirometry, will add flutter valve and Mucinex No fevers, chills, chest pain, shortness of breath, abdominal pain, nausea vomiting Review of Systems Review of Systems: All systems reviewed & are unremarkable except as noted in Subjective Physical Exam Physical Exam: CONSTITUTIONAL: WNWD, generally well-appearing, NAD EYES: normal conjunctivae, no scleral icterus ENT: external ear and nose normal, MMM NECK: supple RESPIRATORY: clear to auscultation bilaterally, no crackles, rales or wheezes, normal respiratory effort CARDIOVASCULAR: regular rate and rhythm, S1 and 2 heard without murmurs, gallops or rubs, no JVD, no peripheral edema GASTROINTESTINAL: soft, nontender, ND, no guarding MUSCULOSKELETAL: strength 5/5 throughout, head is normocephalic and atraumatic, neck supple. SKIN: warm and dry NEUROLOGIC: Alert oriented, answers questions appropriately, speech fluent, no facial asymmetry, moves extremities, patient seen ambulating in the hallways PSYCHIATRIC: Euthymic mood Results & Data Results & Data ([facility]) Vital Signs (Past 12 Hours) Vital Signs Temp Pulse Resp BP Pulse Ox 09/23/21 07:17 36.5 C 72 18 174/88 H 94 09/22/21 22:20 36.5 C 71 18 149/80 H 93 Laboratory Results 09/23/21 09/23/21 Range/Units 06:57 06:57 WBC 7.33 (4.8-10.8) K/uL RBC 3.50 L (4.7-6.1) M/uL Hgb 9.3 L (14.0-18.0) g/dL Hct 31.0 L (42-52) % MCV 88.6 (80-100) fL MCH 26.6 (25-34) pg MCHC 30.0 L (32-36) g/dL RDW Std Deviation 50.6 H (36.4-46.3) fL RDW Coeff of Beltran 15.6 H (11.5-14.5) % Plt Count 211 (130-400) K/uL MPV 10.2 (7.4-10.4) fL Sodium 141 (136-145) mmol/L Potassium 3.9 (3.5-5.1) mmol/L Chloride 106 (98-107) mmol/L Carbon Dioxide 32 (21-32) mmol/L Anion Gap 3.0 (3-11) BUN 12 (7-18) mg/dl Creatinine 0.79 (0.6-1.4) mg/dl Est Cr Clr Drug Dosing 169.4 ml/min Est GFR ( Amer) 121.4 ml/min Est GFR (Non-Af Amer) 104.7 ml/min BUN/Creatinine Ratio 15.4 (10-20) Glucose 124 H (70-99) mg/dl Calcium 8.6 (8.5-10.1) mg/dl Phosphorus 3.7 (2.5-4.9) mg/dl Magnesium 1.9 (1.8-2.4) mg/dl Medications Administered Current Inpatient Medications Acetaminophen (Acetaminophen 500 Mg Tab) 1,000 mg PO Q8H PRN PRN Reason: MILD Pain Scale 1,2,3 & Pre PT Stop: 10/19/21 12:26 Last Admin: 09/22/21 16:07 Dose: 1,000 mg Documented by: Al Hydrox/Mg Hydrox/Simethicone (Aluminum/Magnesium Susp 30 Ml Udc) 30 ml PO Q6H PRN PRN Reason: Dyspepsia Stop: 10/19/21 12:26 Bisacodyl (Bisacodyl 10 Mg Supp) 10 mg IA DAILY PRN PRN Reason: Constipation Stop: 10/21/21 08:04 Diphenhydramine HCl (Diphenhydramine Capsule 25 Mg Cap) 25 mg PO Q6H PRN PRN Reason: Allergic Rhinitis/Insomnia Stop: 10/19/21 12:26 Last Admin: 09/19/21 21:48 Dose: 25 mg Documented by: Famotidine (Famotidine 20 Mg Tab) 20 mg PO Q12H PRN PRN Reason: Dyspepsia Stop: 10/20/21 14:34 Gabapentin (Gabapentin 300 Mg Cap) 300 mg PO TID SABRINA Stop: 10/19/21 12:26 Last Admin: 09/22/21 20:20 Dose: 300 mg Documented by: Hydromorphone HCl (Hydromorphone Inj 0.5 Mg/0.5 Ml Syr) 0.5 mg IV Q3H PRN PRN Reason: MODERATE Pain (Scale 4,5,6) & Pre PT Stop: 10/04/21 14:34 Hydromorphone HCl (Hydromorphone Inj 1 Mg/Ml Syringe) 1 mg IV Q3H PRN PRN Reason: SEVERE Pain (Scale 7,8,9,10) Stop: 10/04/21 14:34 Last Admin: 09/21/21 07:51 Dose: 1 mg Documented by: Hydroxyzine HCl (Hydroxyzine Hcl 25 Mg Tab) 25 mg PO Q8H PRN PRN Reason: Anxiety Stop: 10/19/21 12:26 Last Admin: 09/23/21 01:03 Dose: 25 mg Documented by: Promethazine HCl 12.5 mg/ (Sodium Chloride) 50.5 mls @ 202 mls/hr IV Q6H PRN PRN Reason: Nausea &/or Vomiting Stop: 10/19/21 12:26 Cefazolin Sodium (Ancef 2000mg) 2,000 mg in 15 mls @ 3.75 mls/min IV Q8H [facility]; Protocol Last Admin: 09/21/21 02:20 Dose: 3.75 mls/min Documented by: Dexamethasone 6 mg/ Syringe 1.5 mls @ 1 mls/min IV DAILY [facility] Stop: 09/23/21 09:02 Last Admin: 09/22/21 07:56 Dose: 1 mls/min Documented by: Influenza Virus Vaccine Quadrival (Do Not Administer Flu Vaccine) 1 ea N/A PRN PRN PRN Reason: Notification Stop: 10/20/21 14:34 Lisinopril (Lisinopril 40 Mg Tab) 40 mg PO [facility] Stop: 10/19/21 12:26 Last Admin: 09/22/21 07:55 Dose: 40 mg Documented by: Loratadine (Loratadine 10 Mg Tab) 10 mg PO [facility] Stop: 10/19/21 12:26 Last Admin: 09/22/21 07:55 Dose: 10 mg Documented by: Magnesium Hydroxide (Magnesium Hydroxide Susp 30 Ml Udc) 30 ml PO Q24H PRN PRN Reason: Constipation Stop: 10/19/21 12:26 Metoclopramide HCl (Metoclopramide Hcl Inj 5 Mg/Ml 2 Ml Vial) 10 mg IV Q6H PRN PRN Reason: Nausea &/or Vomiting Stop: 10/19/21 12:26 Naloxone HCl (Naloxone Hcl 0.4 Mg/1 Ml Vial/Carp) 0.1 mg IV Q5M PRN PRN Reason: Oversedation/respiratory dep Stop: 10/19/21 12:26 Ondansetron HCl (Ondansetron Inj 2 Mg/Ml 2 Ml Vial) 4 mg IV Q6H PRN PRN Reason: Nausea &/or Vomiting Stop: 10/19/21 12:26 Last Admin: 09/23/21 05:53 Dose: 4 mg Documented by: Ondansetron HCl (Ondansetron 4 Mg Od Tab) 4 mg PO Q6H PRN PRN Reason: Nausea Stop: 10/19/21 12:26 Last Admin: 09/22/21 06:13 Dose: 4 mg Documented by: Oxycodone HCl (Oxycodone Hcl Ir 5 Mg Tab (Immediate Release)) 5 - 10 mg PO Q4H PRN PRN Reason: mod to severe pain Stop: 10/03/21 12:26 Last Admin: 09/23/21 05:53 Dose: 10 mg Documented by: Pneumococcal Polyvalent Vaccine (Do Not Administer Pneumococcal Vaccine) 1 ea N/A PRN PRN PRN Reason: Notification Stop: 10/20/21 14:34 Senna/Docusate Sodium (Docusate Sodium/Senna 50/8.6mg Tab) 2 tab PO HS SABRINA Stop: 10/20/21 20:59 Last Admin: 09/22/21 20:13 Dose: Not Given Documented by: Sodium Biphosphate/Sodium Phosphate (Sod Phosphate/Sod Biphosphate Enema 132 Ml Btl) 132 ml IA ONE PRN PRN Reason: Constipation Stop: 10/20/21 14:34 Tramadol HCl (Tramadol Hcl 50 Mg Tablet) 50 - 100 mg PO Q4H PRN PRN Reason: Moderate-Severe pain & Pre PT Stop: 10/19/21 12:26 Last Admin: 09/23/21 01:03 Dose: 100 mg Documented by:
[2021-09-23] MEDS: GABAPENTIN 300 MG CAP PO SCH (08:46)
[2021-09-23] MEDS: lisinopril 40 MG TAB PO SCH (08:47)
[2021-09-23] MEDS: LORATADINE 10 MG TAB PO SCH (08:47)
[2021-09-23] MEDS: dexAMETHasone 6 MG in SYRINGE 0 ML IV SCH (08:51)
--- NOTE | 2021-09-23 10:40 | Discharge Summary ---
Date of Service September 23, 2021 Admission HPI Per Admitting Provider This is a 51-year-old male known to me having undergone a multilevel lumbar decompression many years ago. He presents with significant decline in status predominantly affecting the right lower extremity. He states any prolonged standing walking does produce is dense right leg pain numbness and weakness. The left lower extremity is largely asymptomatic. He is failed all nonoperative attempts and presents to emergency room with a significant decline in status. Principal Diagnosis Lumbar spinal stenosis with neurogenic claudication Discharge Data Allergies Allergy/AdvReac Type Severity Reaction Status Date / Time adhesive tape Allergy Intermediate Blisters Verified 09/19/21 10:15 with rough clear tape iron AdvReac Intermediate ELEVATES Verified 09/19/21 10:15 LIVER ENZYMES TO DANGEROUS LEVELS lorazepam [From Ativan] AdvReac Intermediate HALLUCINATI Verified 09/19/21 10:15 ONS morphine AdvReac Intermediate HALLUCINATI Verified 09/19/21 10:15 ONS Consultations 09/19/21 07:42 Consult Physician Stat 09/19/21 08:07 ED Decision to Admit Stat 09/19/21 12:27 Consult Internal Medicine Routine Procedures Performed Operation Date: 09/20/21 11:05 Actual Procedures p L2-L3 Decompression Fusion, with Application of Bone Morphogenetic Protein and IFactor Bone Graft, Spinal Cord Monitoring(Not Applicable) - Maciel Gutierrez DO s L3-S1 Hardware Removal,(Not Applicable) - Maciel Gutierrez DO Ordered Studies 09/19/21 08:07 MR lumbar spine wo con Stat 09/20/21 11:05 FL lumbar spine 2-3V Routine 09/20/21 12:33 MR thoracic spine wo/w con Urgent Hospital Course (1) Neurogenic claudication due to lumbar spinal stenosis: Patient was admitted with significant right leg symptoms and underwent surgery the following day. Tolerated procedure well taken to orthopedic floor. He was up and ambulating with physical therapy postop day 1 and 2 LUDIN drain decreasing probably. Pain well controlled. Excellent strength testing. Subsequent discharge on postop day #3. Discharge orders instructions from the chart for further review. Total Time Total Time Spent Total Time Spent (In Minutes): 20 minutes Discharge Plan Discharge Items Patient Disposition: Home - Self-Care Reason For Visit: BACK PAIN -PT OF DR GUTIERREZ Discharge Diagnosis: Lumbar spinal stenosis with neurogenic claudication Activity: As commented below Non-emergency contact: Primary Care Provider Call non-emergency contact if: you have any medication questions Follow-up/Referrals: PCP,NO [Primary Care Provider] - Diet: Regular Addtl Attending Provider Instructions: ACTIVITY RECOMMENDATIONS: SELF CARE INSTRUCTIONS AFTER THORACIC/LUMBAR FUSIONS 1. You may walk to your tolerance. It is good exercise for your legs and back. Expect some back and intermittent leg aches and pains. 2. You may perform "counter-top" level activities (make a sandwich, sun with a project, etc.). 3. No bending or lifting of more than 10 pounds or back twisting of any nature (roll like a log when turning in bed). 4. You may ride in a car for 20-30 minutes at a time. No driving until after your first visit with your doctor. 5. Frequent changes of position and restricting sitting to 30 minutes at a time will help limit the amount of back spasms and stiffness you may experience. 6. You may discontinue the use of ambulatory aids (cane, crutches, etc.) once your strength and confidence allow. 7. You may active directory systems administrator the shower and let water strike your incision when you arrive home at least once daily. Do not take a tub bath, sit in a hot tub or go into a swimming pool until after your first recheck in the office. SPECIAL CARE INSTRUCTIONS: VERY IMPORTANT TO READ AND REVIEW A. Your surgical incision has been closed with a cosmetic suture under the skin that will dissolve in about 6 weeks. In 14 days, you can use a pair of clean scissors and cut the suture that is left outside of the skin at the ends of your incision. 1. The small skin tapes can be removed 7 days after surgery if they have not fallen off by that point. 2. You may keep the wound open to air as much as possible to promote healing after post-op day number 5 unless told otherwise by your doctor. 3. If you think the wound looks like it is becoming infected (redness or worsening drainage) and/or you are experiencing fever, chill or worsening back pain and muscle spasms, contact the office so that we may evaluate you as soon as possible. B. Complications are uncommon, but please contact us if you have any signs or symptoms of: 1. wound infection (fever higher than 102.5 degrees F, redness, separation of wound, drainage, or increasing pain from the incision) 2. blood clots in legs (pain, swelling, redness and warmth in legs) 3. urinary tract infection (fever higher than 102.5 degrees F, burning upon urination or increased frequency of urination) 4. nerve problems (inability to walk on your toes or heels, numbness, loss of bowel or bladder control) 5. any other symptoms that concern you C. Please call the office at if you have any concerns or questions about your operation or recovery. D. No smoking! Smoking drastically decreases the chance of a solid fusion. E. Do not take any anti-inflammatory medications (Indocin, Advil, Motrin, Aspirin, Naprosyn, etc.) as these may inhibit the chance of a solid fusion. Tylenol is okay to take for pain. MANAGING PAIN AFTER SPINAL SURGERY 1. Narcotic medication is intended for short-term use and will be provided for surgical pain. Surgical pain usually lasts for a period of 4-6 weeks. Narcotic medication includes Percocet, Vicodin, Darvocet, Tylenol #3 or Lortab. 2. Longer-term pain is more appropriately treated with non-narcotic medication such as Tylenol ES. 3. Muscle spasm is not appropriately treated with narcotics. Muscle relaxers such as Soma, Flexeril or Skelaxin can be used along with Tylenol ES. 4. Remember that we all live with some "aches and pains". This is not unusual or uncommon after an injury or as we get older. a. Back pain is expected and may include muscle spasms for 4 to 6 weeks a fter surgery. The pain should gradually improve. If the pain worsens for no apparent reason, please contact the office. b. Intermittent leg pain may also be experienced and should not be concerned about unless it worsens for no apparent reason. If so, please contact the office. 5. We will provide appropriate medication within the normal guidelines of their prescribed use. We will also be very cautious and aware of potential abuse and extended duration of patients' medication needs. a. Pain medications are for your comfort and to assist with sleep and rest so that the tissue can heal. They are not provided in order to return to normal activity and should not be used through the day. To do so or worsening pain at night can result from ongoing tissue damage and development of tolerance to the prescribed medicine. 6. Please allow 2-3 days to process refills. Prescriptions will not be mailed but must be picked up at the office. FOLLOW UP VISIT: Keep your scheduled follow-up appointment. Any questions, please call the office at . Pending Studies at Discharge: No Stand-Alone Forms: My [facility], Smoking Cessation Medications and DC Order Prescriptions: New oxycodone 5 mg tablet 5 mg PO Q6H PRN (Reason: pain, severe) Qty: 30 RF: 0 tramadol 50 mg tablet 50 mg PO Q6H PRN (Reason: pain, moderate) Qty: 30 RF: 0 ondansetron HCl [Zofran] 4 mg tablet 4 mg PO Q8H PRN (Reason: nausea and vomiting) Qty: 20 RF: 0 Continued lisinopril 20 mg Tablet 40 mg PO QAM RF: 0 testosterone cypionate 200 mg/mL Kit 1 dose IM DIRECTED RF: 0 gabapentin 100 mg Capsule 300 mg PO TID RF: 0 acetaminophen [Tylenol Extra Strength] 500 mg Tablet 1,000 mg PO BID RF: 0 loratadine 10 mg Tablet 10 mg PO QAM RF: 0 Emgality Pen 120 mg/mL Pen Injector 120 mg SUBCUT MONTHLY RF: 0 Discharge Orders: Discharge Order (Routine); Ordered 09/23/21 Ordered By: Maciel Gutierrez Admission Data Admit Date/Time: 09/20/21 13:16 Attending Provider: Maciel Gutierrez Admit Provider: Maciel Gutierrez Primary Care Provider: PCP,NO Other Providers: Maciel Gutierrez ; Stan Hall
[2021-09-23] MEDS ORDERED: guaiFENesin 600 MG TABCR PO SCH ×2 (11:40→21:00)
== END 2021-09-23 13:00 | disposition home or self-care (01) | DRG 454 ==
LOC: ED 07:05 → EDINP 07:05 → 3N 20:19

== ENCOUNTER 2021-10-11 12:05 | Inpatient (IN) ==
[2021-10-11 12:57] LABS: Basophils # (auto) 0.03 K/uL (0-0.2); Basophils % (auto) 0.4 %; Eosinophils % (auto) 4.2 %; Hematocrit (blood only) 35.7 % (42-52); Hemoglobin 11.1 g/dL (14.0-18.0); Immature Granulocytes # (auto) 0.01 K/uL (0.00-0.02); Immature Granulocytes % (auto) 0.1 %; Lymphocytes # (auto) 1.03 K/uL (1.2-3.4); Lymphocytes % (auto) 14.6 %; Mean Corpuscular Hemoglobin 26.4 pg (25-34); Mean Corpuscular Hgb Conc 31.1 g/dL (32-36); Mean Corpuscular Volume 84.8 fL (80-100); Mean Platelet Volume 9.5 fL (7.4-10.4); Monocytes # (auto) 0.47 K/uL (0.11-0.59); Monocytes % (auto) 6.6 %; Neutrophils # (auto) 5.23 K/uL (1.4-6.5); Neutrophils % (auto) 74.1 %; Platelet Count 374 K/uL (130-400); RDW Coefficient of Variation 14.5 % (11.5-14.5); RDW Standard Deviation 45.3 fL (36.4-46.3); Red Blood Count 4.21 M/uL (4.7-6.1); White Blood Count 7.07 K/uL (4.8-10.8)
[2021-10-11] MEDS ORDERED: ONDANSETRON INJ 2 MG/ML 2 ML VIAL IV STA (12:58)
[2021-10-11] MEDS ORDERED: HYDROmorphone INJ 0.5 MG/0.5 ML SYR IV STA (12:58)
--- NOTE | 2021-10-11 13:01 | Emergency Department Note ---
Impression & Plan Neurogenic claudication due to lumbar spinal stenosis, Postoperative back pain ED Provider Note NAME: ADRIENNE FERRER AGE: 51 SEX: M : 1970 ARRIVES VIA: Walk-In INFORMANT: Patient ED PROVIDER(S): Yung Loredo DO CHIEF COMPLAINT: Back pain HPI: Patient is a 51-year-old male who presents to the ER for back pain. He notes he had surgery performed by Dr. Gutierrez on September 20 with a fusion which was previously at S1 to L4 and was extended from S1 to L2. Since the surgery his numbness has improved significantly but recently has been starting to have sig nificant pain radiating out from the right lower back down the right leg. He describes as a burning/searing sensation that is white hot. Notes that the 7-8 out of 10. Has improved since yesterday as it initially included the whole leg. No weakness or numbness. He was in outside facility and had an MRI of his spine performed and was discharged to follow-up with spine. He saw them in the office today and was referred over for admission. Denies any fevers. No cough runny nose. No other exacerbating remitting factors. Movement does make it worse and rest improves it. ROS: See above HPI for pertinent positives & negatives. A total of 10 systems reviewed and were otherwise negative. PAST MEDICAL HISTORY:See Below PAST SURGICAL HISTORY:See Below FAMILY HISTORY:See Below SOCIAL HISTORY:See Below HOME MEDICATIONS:See Below ALLERGIES:See Below VITALS:See Below PHYSICAL EXAMINATION: GENERAL: Sitting up in bed, alert, well appearing, well nourished, no distress, non-toxic EYE EXAM: normal conjunctiva. OROPHARYNX: no exudate, no erythema, lips, buccal mucosa, and tongue normal and mucous membranes are moist NECK: supple, no nuchal rigidity, no adenopathy, non-tender LUNGS: Clear to auscultation. Normal chest wall mechanics HEART: no murmurs, S1 normal and S2 normal ABDOMEN: abdomen soft, non-tender, normo-active bowel sounds, no masses, no rebound or guarding. BACK: Back is symmetrical on inspection and there is no deformity, midline tenderness around the incision which is clean dry and intact radiating through his right gluteus and down his leg. UPPER EXTREMITIES: upper extremities are grossly normal. LOWER EXTREMITIES: Flexion extension of the hips knees ankles and EHL 5 out of 5 bilaterally. Unable to obtain patellar or Achilles reflexes. NEURO EXAM: Normal sensorium, cranial nerves II-XII grossly intact, normal speech, no gross weakness of arms, no gross weakness of legs. MEDICAL DECISION MAKING: Patient is a 51-year-old male who presents ER with above-stated complaint referred in by Dr. Loaiza office following having an MRI at [facility] which showed the large fluid collection containing small amount of blood products in the subcutaneous fat within the midline incision extending from L1- L5 consistent with a postsurgical seroma although infection cannot be excluded completely. Patient was given IV narcotics as well as IV fluids. He was given 1 dose of Ativan due to anxiety. Dr. Gutierrez was consulted and they evaluated h im at bedside admit him for further work-up and possible drainage tomorrow. Triage Nursing notes reviewed. Limited review of prior medical records performed Vital Signs: reviewed and remarkable for HTN Differential diagnosis: Differential diagnoses includes but is not limited to lumbar radiculopathy, kidney stone, muscle strain, facture, cauda equina, mass, and disc herniation. ER treatment provided: See below Diagnostics interpreted by me: ECG: none Laboratory studies: As stated above and show below. Imaging studies: See below Consultation(s): Discussed with Dr. 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 No issues per anesthesia post-op progress note. History of partial nephrectomy History of repair of hiatal hernia History of sinus surgery removal of benign mass History of surgery on left wrist Fusion History of tonsillectomy and adenoidectomy Family History Other No family history of adverse response to anesthesia Social History Smoking Status: Former smoker Second Hand Exposure: No; Hx Alcohol Use: No Hx Substance Use: No Preferred Language: Niuean Communication Ability: Effective Strategic Communications Specialist Required: No Beliefs That Will Affect Care: None marital status: Current Living Situation: Spouse Current Living Situation Comment: fiance Feels Safe at Home: Yes Assistive Devices: Walker Allergies Allergies Allergy/AdvReac Type Severity Reaction Status Date / Time adhesive tape Allergy Intermediate Blisters Verified 10/11/21 14:21 with rough clear tape iron AdvReac Intermediate ELEVATES Verified 10/11/21 14:21 LIVER ENZYMES TO DANGEROUS LEVELS lorazepam [From Ativan] AdvReac Intermediate HALLUCINATI Verified 10/11/21 14:21 ONS morphine AdvReac Intermediate HALLUCINATI Verified 10/11/21 14:21 ONS Home Meds Home Medications Medication Instructions Recorded Confirmed lisinopril 20 mg tablet 40 mg PO QAM 10/30/18 10/11/21 testosterone cypionate 200 mg/mL 1 dose IM DIRECTED 10/30/18 10/11/21 intramuscular kit gabapentin 100 mg capsule 300 mg PO TID 05/13/20 10/11/21 acetaminophen 500 mg tablet 1,000 mg PO BID 09/02/21 10/11/21 (Tylenol Extra Strength) galcanezumab-gnlm 120 mg/mL 120 mg SUBCUT MONTHLY 09/02/21 10/11/21 subcutaneous pen injector (Emgality Pen) loratadine 10 mg tablet 10 mg PO QAM 09/02/21 10/11/21 docusate sodium 100 mg capsule 100 mg PO QDL 10/11/21 10/11/21 (Colace) multivitamin 1 tab PO QDL 10/11/21 10/11/21 ondansetron HCl 4 mg tablet 4 mg PO BID PRN 10/11/21 10/11/21 Previous Rx's Medication Instructions Recorded oxycodone 5 mg tablet 5 mg PO Q6H PRN #30 tab 10/07/21 tramadol 50 mg tablet 50 mg PO Q6H PRN #30 tab 10/07/21 Results & Data (ED) Vital Signs Vital Signs - 24 hr 10/11/21 12:11 10/11/21 13:18 Temperature 36.3 C L Temperature Source Temporal Artery Scan Pulse Rate 79 Pulse Rate [Apical] 76 Pulse Rhythm [Apical] Regular Respiratory Rate 18 16 Respiratory Depth Normal Blood Pressure 165/106 H Blood Pressure [Left Arm] 147/104 H Blood Pressure Mean 125 Blood Pressure Mean [Left Arm] 118 Pulse Oximetry 100 99 Oxygen Delivery Method Room Air Room Air Sepsis Recent Fever Within 48 Hours No Sepsis New/Unexplained Change in Mental Status N/A Sepsis Action Taken by Nursing No Action Required Laboratory Data Result diagrams: 10/11/21 12:37 10/11/21 12:37 Lab Results 10/11/21 10/11/21 10/11/21 Range/Units 12:37 12:37 12:48 WBC 7.07 (4.8-10.8) K/uL RBC 4.21 L (4.7-6.1) M/uL Hgb 11.1 L (14.0-18.0) g/dL Hct 35.7 L (42-52) % MCV 84.8 (80-100) fL MCH 26.4 (25-34) pg MCHC 31.1 L (32-36) g/dL RDW Std Deviation 45.3 (36.4-46.3) fL RDW Coeff of Beltran 14.5 (11.5-14.5) % Plt Count 374 (130-400) K/uL MPV 9.5 (7.4-10.4) fL Immature Gran % (Auto) 0.1 % Neut % (Auto) 74.1 % Lymph % (Auto) 14.6 % Mcleod % (Auto) 6.6 % Eos % (Auto) 4.2 % Baso % (Auto) 0.4 % Neut # (Auto) 5.23 (1.4-6.5) K/uL Lymph # (Auto) 1.03 L (1.2-3.4) K/uL Mcleod # (Auto) 0.47 (0.11-0.59) K/uL Eos # (Auto) 0.30 (0-0.5) K/uL Baso # (Auto) 0.03 (0-0.2) K/uL Immature Gran # (Auto) 0.01 (0.00-0.02) K/uL Sodium 138 (136-145) mmol/L Potassium 4.2 (3.5-5.1) mmol/L Chloride 102 (98-107) mmol/L Carbon Dioxide 31 (21-32) mmol/L Anion Gap 5 (3-11) BUN 15 (6-23) mg/dl Creatinine 0.81 (0.6-1.4) mg/dl Est Cr Clr Drug Dosing 159.1 ml/min Est GFR ( Amer) 120.1 ml/min Est GFR (Non-Af Amer) 103.6 ml/min BUN/Creatinine Ratio 18.5 (10-20) Glucose 106 H (70-99(Fasting)) mg/dl Calcium 9.2 (8.5-10.1) mg/dl Total Bilirubin 0.4 (0.2-1.0) mg/dl AST 21 (13-39) U/L ALT 16 (7-52) U/L Alkaline Phosphatase 103 (34-104) U/L Total Protein 6.9 (6.0-8.3) gm/dl Albumin 4.1 (3.4-5.0) gm/dl Globulin 2.8 (2.5-4.0) gm/dl Albumin/Globulin Ratio 1.5 (0.9-2) Urine Color Yellow Urine Appearance Clear (Clear) Urine pH 5.5 (4.5-7.5) Ur Specific [place] 1.017 (1.000-1.030) Urine Protein Negative (Negative) Urine Glucose (UA) Negative (Negative) Urine Ketones Negative (Negative) Urine Blood Negative (Negative) Urine Nitrite Negative (Negative) Urine Bilirubin Negative (Negative) Urine Urobilinogen Negative (Negative) Ur Leukocyte Esterase Negative (Negative) Administered Medications Dexamethasone 8 mg/ Syringe 2 mls @ 1 mls/min IV Q8H [facility] Stop: 10/12/21 08:01 Last Admin: 10/11/21 15:59 Dose: 1 mls/min Documented by: [id number] Lactated Ringer's (Lr) 1,000 mls @ 75 mls/hr IV .[id number] [facility] Stop: 11/10/21 14:59 Last Admin: 10/11/21 15:31 Dose: 75 mls/hr Documented by: [id number] Discontinued Medications Hydromorphone HCl (Hydromorphone Inj 0.5 Mg/0.5 Ml Syr) 0.5 mg IV NOW STA Stop: 10/11/21 12:59 Last Admin: 10/11/21 13:17 Dose: 0.5 mg Documented by: [id number] Lorazepam (Ativan) 0.5 mg in 1 mls @ 1 mls/min IV NOW STA Stop: 10/11/21 13:44 Last Admin: 10/11/21 13:51 Dose: 1 mls/min Documented by: [id number] Ondansetron HCl (Ondansetron Inj 2 Mg/Ml 2 Ml Vial) 4 mg IV NOW STA Stop: 10/11/21 12:59 Last Admin: 10/11/21 13:17 Dose: 4 mg Documented by: [id number] Discharge Plan Visit Data Chief Complaint: Swelling/Edema to Extremity Stated Complaint: DR CAMPOS UOC POST SURGRICAL EDEMA ON SPINE ED Provider: Yung Loredo Discharge Problem: Neurogenic claudication due to lumbar spinal stenosis, Postoperative back pain Patient Disposition: Admitted As Inpatient Discharge Instructions Interventions: ED Discharge Assessment Last Done: 10/11/21 15:46
[2021-10-11 13:02] LABS: Appearance Urine Clear (Clear); Bilirubin Urine Negative (Negative); Blood Urine Negative (Negative); Color Urine Yellow; Glucose Urine UA Negative (Negative); Ketones Urine Negative (Negative); Leukocyte Esterase Urine Negative (Negative); Nitrite Urine Negative (Negative); Protein Urine Negative (Negative); Specific Gravity Urine 1.017 (1.000-1.030); Urobilinogen Urine Negative (Negative); pH Urine 5.5 (4.5-7.5)
[2021-10-11 13:19] LABS: Albumin Globulin Ratio 1.5 (0.9-2); Albumin Level 4.1 gm/dl (3.4-5.0); BUN Creatinine Ratio 18.5 (10-20); Bilirubin,Total 0.4 mg/dl (0.2-1.0); Calcium 9.2 mg/dl (8.5-10.1); Creatinine Clr Calc Pharmacy 159.1 ml/min; Est GFR (African American) 120.1 ml/min; Est GFR (Non-African American) 103.6 ml/min; Globulin 2.8 gm/dl (2.5-4.0); Potassium 4.2 mmol/L (3.5-5.1); Total Protein 6.9 gm/dl (6.0-8.3)
[2021-10-11] MEDS ORDERED: LORazepam 0.5 MG/1 ML VIAL IV STA (13:43)
[2021-10-11] MEDS ORDERED: PROMETHAZINE HCL 12.5 MG in SODIUM CHLORIDE 0.9% 50 ML IV PRN (14:58)
[2021-10-11] MEDS ORDERED: LORazepam 0.5 MG/1 ML VIAL IV PRN (14:58)
[2021-10-11] MEDS ORDERED: LORazepam 0.5 MG TAB PO PRN (14:58)
[2021-10-11] MEDS ORDERED: traMADol HCL 50 MG TABLET PO PRN (14:58)
[2021-10-11] MEDS ORDERED: ACETAMINOPHEN 1,000 MG/100 ML VIAL IV PRN (14:58)
[2021-10-11] MEDS ORDERED: ONDANSETRON INJ 2 MG/ML 2 ML VIAL IV PRN (14:58)
[2021-10-11] MEDS ORDERED: ACETAMINOPHEN 500 MG TAB PO PRN (14:58)
[2021-10-11] MEDS ORDERED: KETOROLAC TROMETHAMINE 15 MG/ML VIAL IV PRN (14:58)
[2021-10-11] MEDS ORDERED: METOCLOPRAMIDE HCL INJ 5 MG/ML 2 ML VIAL IV PRN (14:58)
[2021-10-11] MEDS ORDERED: NALOXONE HCL 0.4 MG/1 ML VIAL/CARP IV PRN (14:58)
[2021-10-11] MEDS ORDERED: HYDROmorphone INJ 0.5 MG/0.5 ML SYR IV PRN (14:58)
--- NOTE | 2021-10-11 15:10 | History & Physical Report ---
Date of Service October 11, 2021 Assessment & Plan (1) Intractable neuropathic pain of lumbosacral origin: Plan: Patient's going to be admitted to Dr. Gutierrez service. I believe part of his pain is due to right greater trochanter bursitis. His MRI findings from [facility] are modest. Certainly not really able to explain the degree of his symptoms. We will admit him for pain control including IV steroids. Will make n.p.o. after midnight in case Dr. Gutierrez decides to pursue I&D of the lumbar spine. Would also strongly consider right greater trochanter injection. History of Present Illness Chief Complaint: Worsening lower back pain, right lower extremity pain and numbness Primary Care Provider: Sheron Michele MD Is a 51-year-old gentleman that Dr. Gutierrez operated on September 20, 2021. Hard removal L3-S1, decompression L2-3, instrumented fusion L2-S1. Postoperatively he did well for about a week. Last week he started to have increase in symptoms. He had his normal 2-week postoperative checkup and was given oral steroids. He states this increased his pain. Shortly afterwards he went to the [facility] emergency room. Medications orally were given upon discharge. Pain is progressively worsened since. He went back to [facility] emergency room yesterday for worsening complaints. MRI was performed. And he contacted our office today was recommended he go to the emergency room. Denies fever chills. Pain is increased in pain across his surgical incision rating down his right buttock, right groin, right lateral hip. Has numbness along the right anterior lateral thigh. Symptoms typically do not radiate below the level of his knee. Left leg is asymptomatic. He has been taking oxycodone at home for pain control. He has completed his oral steroids. Denies bowel or bladder changes. He has been ambulating independently at home. Allergies Allergy/AdvReac Type Severity Reaction Status Date / Time adhesive tape Allergy Intermediate Blisters Verified 10/11/21 14:21 with rough clear tape iron AdvReac Intermediate ELEVATES Verified 10/11/21 14:21 LIVER ENZYMES TO DANGEROUS LEVELS lorazepam [From Ativan] AdvReac Intermediate HALLUCINATI Verified 10/11/21 14:21 ONS morphine AdvReac Intermediate HALLUCINATI Verified 10/11/21 14:21 ONS Home Medications Medication Instructions Recorded Confirmed Type lisinopril 20 mg tablet 40 mg PO QAM 10/30/18 10/11/21 History testosterone cypionate 200 mg/mL 1 dose IM DIRECTED 10/30/18 10/11/21 History intramuscular kit gabapentin 100 mg capsule 300 mg PO TID 05/13/20 10/11/21 History acetaminophen 500 mg tablet 1,000 mg PO BID 09/02/21 10/11/21 History (Tylenol Extra Strength) galcanezumab-gnlm 120 mg/mL 120 mg SUBCUT MONTHLY 09/02/21 10/11/21 History subcutaneous pen injector (Emgality Pen) loratadine 10 mg tablet 10 mg PO QAM 09/02/21 10/11/21 History oxycodone 5 mg tablet 5 mg PO Q6H PRN #30 tab 10/07/21 10/11/21 Rx tramadol 50 mg tablet 50 mg PO Q6H PRN #30 tab 10/07/21 10/11/21 Rx docusate sodium 100 mg capsule 100 mg PO QDL 10/11/21 10/11/21 History (Colace) multivitamin 1 tab PO QDL 10/11/21 10/11/21 History ondansetron HCl 4 mg tablet 4 mg PO BID PRN 10/11/21 10/11/21 History Past Med/Surg History Medical History Anemia Chronic pain Cluster headache History of depression Pain aggravates depression and anxiety- currently stable and controlled History of migraine Stable- follows with neuro for Botox HTN (hypertension) related to pain Hyperlipemia improving, no longer on med Incomplete right bundle branch block Obesity Osteoarthritis 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 No issues per anesthesia post-op progress note. History of partial nephrectomy History of repair of hiatal hernia History of sinus surgery removal of benign mass History of surgery on left wrist Fusion History of tonsillectomy and adenoidectomy Family History Other No family history of adverse response to anesthesia Social History Smoking Status: Former smoker Second Hand Exposure: No; Hx Alcohol Use: No Hx Substance Use: No Preferred Language: Nepali Communication Ability: Effective Sales Agent Financial Report Service Required: No Beliefs That Will Affect Care: None marital status: Current Living Situation: Spouse Current Living Situation Comment: amanda Feels Safe at Home: Yes Assistive Devices: Walker Review of Systems Review of Systems: All systems reviewed & are unremarkable except as noted in HPI & below Physical Exam Physical Exam: Patient seen in the emergency room B5 in conjunction with his No acute distress Alert and oriented x3 Cooperative with exam Positive logroll on the right Positive tenderness over the right greater trochanter bursa region. Incision has some edema but no erythema or drainage or ecchymosis It is tender to palpation Strength is 5/5 EHL, dorsiflexion, plantarflexion, quadriceps, hamstrings, hip flexors, hip abductor's and hip adductor's. Negative tension sign Constitutional: WD/WN, vitals as above Eyes: normal visual lorenzo by confrontation ENMT: external ear and nose normal, oropharynx normal Neck: normal visual inspection Respiratory: normal respiratory effort Cardiovascular: Extremities: normal capillary refill Gastrointestinal (Abdomen): Inspection/Auscultation: abdomen normal to inspection Musculoskeletal: Spine: + lumbar spinal tenderness Extremities: extremities normal to inspection and strength 5/5 throughout Hip: + log roll test positive Skin: no rashes, warm and dry Neurologic: moves all extremities Psychiatric: A+Ox3, euthymic affect Eye Contact: good eye contact Results & Data Results & Data ([facility]) Vital Signs (Past 12 Hours) Vital Signs Temp Pulse Pulse Resp BP BP Pulse Ox 10/11/21 13:18 76 16 147/104 H 99 10/11/21 12:11 36.3 C L 79 18 165/106 H 100 Diagnostic Findings MRI of the lumbar spine was performed yesterday at [facility]. Dr. Gutierrez has personally reviewed it. Demonstrates instrumented fusion L2-S1. There is a small postoperative seroma that appears to be superficial. It is noncompressive. Code Status & VTE Plan VTE Prophylaxis Plan VTE Prophylaxis will be ordered: Yes
[2021-10-11] MEDS: LACTATED RINGER'S 1,000 ML IV SCH (15:31)
[2021-10-11] MEDS: dexAMETHasone 8 MG in SYRINGE 0 ML IV SCH ×2 (15:59→23:05)
[2021-10-11] MEDS: HYDROmorphone INJ 1 MG/ML SYRINGE IV PRN ×2 (17:01→20:12)
[2021-10-11] MEDS: ONDANSETRON 4 MG OD TAB PO PRN (20:13)
[2021-10-11] MEDS: GABAPENTIN 300 MG CAP PO SCH (21:26)
[2021-10-11] MEDS: oxyCODONE HCL IR 5 MG TAB (IMMEDIATE RELEASE) PO PRN (23:02)
[2021-10-12] MEDS: HYDROmorphone INJ 1 MG/ML SYRINGE IV PRN ×3 (03:17→12:38)
[2021-10-12] MEDS: LACTATED RINGER'S 1,000 ML IV SCH ×2 (05:23→18:22)
[2021-10-12] MEDS ORDERED: ceFAZolin 2000MG 2,000 MG/15 ML SYR IV SCH (06:00)
[2021-10-12] MEDS ORDERED: ceFAZolin 3,000 MG in DEXTROSE 5% 50 ML IV SCH (06:00)
[2021-10-12] MEDS: dexAMETHasone 8 MG in SYRINGE 0 ML IV SCH (07:38)
[2021-10-12] MEDS: ONDANSETRON 4 MG OD TAB PO PRN (07:38)
[2021-10-12] MEDS: GABAPENTIN 300 MG CAP PO SCH ×3 (07:43→20:38)
[2021-10-12] MEDS: LORATADINE 10 MG TAB PO SCH (08:00)
[2021-10-12] MEDS: lisinopril 40 MG TAB PO SCH (09:00)
[2021-10-12] MEDS: oxyCODONE HCL IR 5 MG TAB (IMMEDIATE RELEASE) PO PRN ×2 (10:03→20:46)
--- NOTE | 2021-10-12 10:35 | Anesthesiology Consultation ---
Date of Service October 12, 2021 Assessment & Plan (1) Encounter for pre-operative examination: Chart Review Chart Review: Acceptable Risk for Surgery and Patient NOT seen in Pre Admission Testing Consults Requested none History Surgery Operation Date: 10/12/21 09:20 Proposed Procedures p Incision and Drainage Lumbar Spine - Maciel Gutierrez DO Height/Weight Height: 6 ft 6 in Weight: 120.7 kg Allergies Allergy/AdvReac Type Severity Reaction Status Date / Time adhesive tape Allergy Intermediate Blisters Verified 10/11/21 14:21 with rough clear tape iron AdvReac Intermediate ELEVATES Verified 10/11/21 14:21 LIVER ENZYMES TO DANGEROUS LEVELS lorazepam [From Ativan] AdvReac Intermediate HALLUCINATI Verified 10/11/21 14:21 ONS morphine AdvReac Intermediate HALLUCINATI Verified 10/11/21 14:21 ONS Medications Home Medications Medication Instructions Recorded Confirmed Last Taken lisinopril 20 mg tablet 40 mg PO QAM 10/30/18 10/11/21 10/11/21 testosterone cypionate 200 mg/mL 1 dose IM DIRECTED 10/30/18 10/11/21 10/08/21 intramuscular kit gabapentin 100 mg capsule 300 mg PO TID 05/13/20 10/11/21 10/11/21 acetaminophen 500 mg tablet 1,000 mg PO BID 09/02/21 10/11/21 10/11/21 (Tylenol Extra Strength) galcanezumab-gnlm 120 mg/mL 120 mg SUBCUT MONTHLY 09/02/21 10/11/21 09/18/21 subcutaneous pen injector (Emgality Pen) loratadine 10 mg tablet 10 mg PO QAM 09/02/21 10/11/21 10/11/21 oxycodone 5 mg tablet 5 mg PO Q6H PRN #30 tab 10/07/21 10/11/21 10/11/21 08:00 tramadol 50 mg tablet 50 mg PO Q6H PRN #30 tab 10/07/21 10/11/21 Unknown docusate sodium 100 mg capsule 100 mg PO QDL 10/11/21 10/11/21 10/10/21 (Colace) multivitamin 1 tab PO QDL 10/11/21 10/11/21 10/10/21 ondansetron HCl 4 mg tablet 4 mg PO BID PRN 10/11/21 10/11/2110/11/22 08:00 Active Medications Generic Name Dose Route Start Last Admin Trade Name Freq PRN Reason Stop Dose Admin Gabapentin 300 mg 10/11/21 21:00 10/12/21 07:43 Gabapentin 300 Mg Cap PO 11/10/21 20:59 Not Given TID SABRINA Hydromorphone HCl 1 mg 10/11/21 14:58 10/12/21 07:38 Hydromorphone Inj 1 Mg/Ml Syringe IV 10/25/21 14:57 1 mg Q3H PRN Administration severe pain (scale 7-10) Lactated Ringer's 1,000 mls @ 75 mls/hr 10/11/21 15:00 10/12/21 05:23 Lr IV 11/10/21 14:59 75 mls/hr .[id number] SABRINA Administration Acetaminophen 1,000 mg in 100 mls @ 400 mls/hr 10/11/21 14:58 10/11/21 21:47 Ofirmev IV 10/12/21 14:58 Infused Q8H PRN Infusion Pain Rating 1-3 & Pre PT Lorazepam 0.5 mg in 1 mls @ 1 mls/min 10/11/21 14:58 10/11/21 23:26 Ativan IV 11/10/21 14:57 1 mls/min Q8H PRN Administration Sedation/Anxiety Ketorolac Tromethamine 15 mg 10/11/21 14:58 10/11/21 22:08 Ketorolac Tromethamine 15 Mg/Ml Vial IV 10/16/21 14:57 15 mg Q6H PRN Administration Pain Miscellaneous 1 ea 10/12/21 00:00 10/12/21 07:34 Order Awaiting Action [Galcanezumab-Gnlm [Emgality Pen] 120 Mg/Ml Pen Injector] N/A 11/11/21 00:00 Not Given QS SABRINA Ondansetron HCl 4 mg 10/11/21 14:58 10/12/21 07:38 Ondansetron 4 Mg Od Tab PO 11/10/21 14:57 4 mg Q6H PRN Administration Nausea Oxycodone HCl 5 - 10 mg 10/11/21 14:58 10/12/21 10:03 Oxycodone Hcl Ir 5 Mg Tab (Immediate Release) PO 10/25/21 14:57 10 mg Q4H PRN Administration mod to severe pain NPO Date Last Intake of Fluids: 10/12/21 Time Last Intake of Fluids: 23:00 Date Last Intake of Solids: 10/11/21 Time Last Intake of Solids: 21:00 Past Medical History Medical History Anemia Chronic pain Cluster headache History of depression Pain aggravates depression and anxiety- currently stable and controlled History of migraine Stable- follows with neuro for Botox HTN (hypertension) related to pain Hyperlipemia improving, no longer on med Incomplete right bundle branch block Obesity Osteoarthritis 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 No issues per anesthesia post-op progress note. History of partial nephrectomy History of repair of hiatal hernia History of sinus surgery removal of benign mass History of surgery on left wrist Fusion History of tonsillectomy and adenoidectomy Social History Smoking Status: Never smoker Hx Alcohol Use: Yes Alcohol type: beer alcohol intake frequency: holidays/special occasions only Hx Substance Use: No substance use type: does not use Physical Exam Vital Signs Last Vital Signs Temp 97.5 F L 10/12/21 07:52 Pulse 97 H 10/12/21 07:52 Resp 16 10/12/21 07:52 BP 169/88 H 10/12/21 08:35 Pulse Ox 97 10/12/21 07:52 Testing Laboratory Results 10/11/21 12:37 10/11/21 12:37 Urine Color Yellow 10/11/21 12:48 Urine Appearance Clear (Clear) 10/11/21 12:48 Urine pH 5.5 (4.5-7.5) 10/11/21 12:48 Ur Specific [place] 1.017 (1.000-1.030) 10/11/21 12:48 Urine Protein Negative (Negative) 10/11/21 12:48 Urine Glucose (UA) Negative (Negative) 10/11/21 12:48 Urine Ketones Negative (Negative) 10/11/21 12:48 Urine Nitrite Negative (Negative) 10/11/21 12:48 Ur Leukocyte Esterase Negative (Negative) 10/11/21 12:48 Electrocardiogram Date: 09/19/21 Findings: + NSR @ and + RBBB Chest X-Ray Date: 09/23/21 Findings: + NAD
[2021-10-12] MEDS: DOCUSATE SODIUM 100 MG CAP PO SCH (12:34)
[2021-10-12] MEDS ORDERED: PROPOFOL IV EMULSION 10 MG/ML 20 ML VIAL IV ONE ×2 (13:30→15:46)
[2021-10-12] MEDS ORDERED: fentaNYL citrate 100 MCG/2 ML VIAL ONE (13:30)
[2021-10-12] MEDS ORDERED: ONDANSETRON INJ 2 MG/ML 2 ML VIAL ONE (13:30)
[2021-10-12] MEDS ORDERED: DEXAMETHASONE SOD INJ 4 MG/ML VIAL ONE (13:30)
[2021-10-12] MEDS ORDERED: ROCURONIUM BROMIDE 10 MG/ML 5 ML VIAL IV ONE (13:31)
[2021-10-12] MEDS ORDERED: ATROPINE SULFATE 0.1 MG/ML 10ML SYR IV PRN (14:18)
[2021-10-12] MEDS ORDERED: ePHEDrine sulfate 50 MG/ML AMP IV PRN (14:18)
[2021-10-12] MEDS ORDERED: HYDROmorphone INJ 2 MG/ML SYR/VIAL IV PRN (14:18)
[2021-10-12] MEDS ORDERED: ONDANSETRON INJ 2 MG/ML 2 ML VIAL IV PRN ×2 (14:18→17:23)
[2021-10-12] MEDS ORDERED: PROMETHAZINE HCL 6.25 MG in SODIUM CHLORIDE 0.9% 50 ML IV PRN (14:18)
--- NOTE | 2021-10-12 14:24 | History & Physical Bridge Note ---
Date of Service October 12, 2021 History & Physical Bridge Note I have examined the patient, reviewed the History & Physical and in the interval since the performance of the History & Physical I have noted the following changes of clinical significance: no changes noted Irrigation and debridement lumbar incision
[2021-10-12] MEDS ORDERED: SUGAMMADEX SODIUM 200 MG/2 ML VIAL IV ONE (14:42)
[2021-10-12] MEDS ORDERED: GENTAMICIN SULFATE 40 MG/ML 2 ML VIAL ONE ×2 (14:48→15:20)
[2021-10-12] MEDS ORDERED: VANCOMYCIN HCL 1000MG/20ML VIAL ONE ×2 (14:48→15:21)
[2021-10-12] MEDS ORDERED: ceFAZolin 330 MG/ML 1 GM VIAL ONE (14:49)
[2021-10-12] MEDS ORDERED: BUPIVACAINE/EPINEPHRINE 0.25% 1:200,000 30 ML VIAL ONE (14:49)
[2021-10-12] MEDS ORDERED: MIDAZOLAM HCL 1 MG/ML 2ML VIAL ONE ×2 (15:20→15:24)
--- NOTE | 2021-10-12 16:00 | Operative Report ---
Post Operative Report Pre & Post Diagnosis Operation Date: 10/12/21 09:20 Pre-Op Diagnosis: Lumbar postoperative seroma Post-Op Diagnosis: Same I identified the patient and participated in the time-out.: Yes Procedure Operation Date: 10/12/21 09:20 Actual Procedures p Incision and Drainage Lumbar Spine(Not Applicable) - Maciel Gutierrez DO Surgeon Maciel Gutierrez, [employer] None Estimated Blood Loss 5 Findings Consistent with Post-Op Diagnosis Specimens None Indications This is a 51-year-old male well-known to me that status post multilevel lumbar decompression fusion. He presents with worsening back pain MRI demonstrates significant subcutaneous seroma. Subsequently we are here for evacuation. Description of Procedure Patient was met with identified informed consent obtained. Patient was then taken to the operative suite underwent a patient placed in a prone position the Jonn table Martha frame. All bony prominences well-padded eyes inspected to ensure no external pressure placed upon the. This point the lumbar spine is prepped and draped in a sterile fashion. Utilizing the previous incision site sharp dissection performed to the skin down into the subcutaneous tissues. Very large blood-tinged seroma was identified. Was evacuated without difficulty. The skin edges and pseudocapsule was debrided to a bleeding surface. 10 round LUDIN drain was inserted. I placed 5 cc of stimulant beads impregnated with gentamicin vancomycin throughout the incision. It was then closed with subcutaneous Vicryl in interrupted fashion and 4 Monocryl for final skin closure. Steri-Strip sterile dressings placed. Patient will continue to PACU stable condition. I attest to the content of the Intraoperative Record and any orders documented therein. Any exceptions are noted below.
[2021-10-12] MEDS: fentaNYL citrate 100 MCG/2 ML VIAL IV PRN ×4 (16:22→16:49)
--- NOTE | 2021-10-12 16:59 | Anesthesiology Progress Note ---
Date of Service October 12, 2021 Anesthesia Post Procedure Vital Signs Vital Signs: Temp Pulse Pulse Resp BP Pulse Ox 10/12/21 16:55 36.5 C 77 16 131/87 95 10/12/21 16:45 80 17 144/88 H 95 10/12/21 16:35 36.3 C L 79 17 150/94 H 97 10/12/21 16:25 76 14 131/78 98 10/12/21 16:15 78 18 137/76 97 10/12/21 16:08 36.3 C L 86 8 L 12 158/67 H 97 10/12/21 14:15 36.8 C 87 20 155/96 H 96 10/12/21 08:35 169/88 H 10/12/21 07:52 36.4 C L 97 H 16 170/117 H 97 10/11/21 23:40 36.4 C L 82 16 156/79 H 93 Pain Intensity Back: Pain Intensity: 2 Transfer of Care Handoff Completed per policy Notes Mental Status: alert / awake / arousable and participated in evaluation Patient Amnestic to Procedure: Yes Nausea / Vomiting: adequately controlled Pain: adequately controlled Airway Patency, RR, SpO2: stable & adequate BP & HR: stable & adequate Hydration State: stable & adequate Anesthetic Complications: no major complications apparent and Pt Satisfied with anesthetic care
[2021-10-12] MEDS ORDERED: PROMETHAZINE HCL 12.5 MG in SODIUM CHLORIDE 0.9% 50 ML IV PRN (17:23)
[2021-10-12] MEDS ORDERED: diphenhydrAMINE Capsule 25 MG CAP PO PRN (17:23)
[2021-10-12] MEDS ORDERED: NALOXONE HCL 0.4 MG/1 ML VIAL/CARP IV PRN (17:23)
[2021-10-12] MEDS ORDERED: hydrOXYzine HCl 25 MG TAB PO PRN (17:23)
[2021-10-12] MEDS ORDERED: SOD PHOSPHATE/SOD BIPHOSPHATE ENEMA 132 ML BTL PR PRN (17:23)
[2021-10-12] MEDS ORDERED: ONDANSETRON 4 MG OD TAB PO PRN (17:23)
[2021-10-12] MEDS ORDERED: MAGNESIUM HYDROXIDE SUSP 30 ML UDC PO PRN (17:23)
[2021-10-12] MEDS ORDERED: METOCLOPRAMIDE HCL INJ 5 MG/ML 2 ML VIAL IV PRN (17:23)
[2021-10-12] MEDS ORDERED: LORazepam 0.5 MG/1 ML VIAL IV PRN (17:23)
[2021-10-12] MEDS ORDERED: ACETAMINOPHEN 500 MG TAB PO PRN (17:23)
[2021-10-12] MEDS ORDERED: HYDROmorphone INJ 0.5 MG/0.5 ML SYR IV PRN (17:23)
[2021-10-12] MEDS ORDERED: DO NOT ADMINISTER PNEUMOCOCCAL VACCINE PRN (17:23)
[2021-10-12] MEDS ORDERED: ACETAMINOPHEN 1,000 MG/100 ML VIAL IV PRN (17:23)
[2021-10-12] MEDS ORDERED: FAMOTIDINE 20 MG TAB PO PRN (17:23)
[2021-10-12] MEDS ORDERED: HYDROmorphone INJ 1 MG/ML SYRINGE IV PRN (17:23)
[2021-10-12] MEDS ORDERED: ALUMINUM/MAGNESIUM SUSP 30 ML UDC PO PRN (17:23)
[2021-10-12] MEDS ORDERED: bisacodyL 10 MG SUPP PR PRN (17:23)
[2021-10-12] MEDS ORDERED: DO NOT ADMINISTER FLU VACCINE PRN (17:23)
[2021-10-12] MEDS ORDERED: traMADol HCL 50 MG TABLET PO PRN (17:23)
[2021-10-12] MEDS: DOCUSATE SODIUM/SENNA 50/8.6MG TAB PO SCH (20:46)
[2021-10-12] MEDS: ceFAZolin 2000MG 2,000 MG/15 ML SYR IV SCH (21:57)
[2021-10-13] MEDS: LACTATED RINGER'S 1,000 ML IV SCH ×2 (00:52→07:36)
[2021-10-13] MEDS: LORazepam 0.5 MG TAB PO PRN ×2 (00:56→23:21)
[2021-10-13] MEDS: oxyCODONE HCL IR 5 MG TAB (IMMEDIATE RELEASE) PO PRN ×5 (00:57→19:50)
[2021-10-13] MEDS: POLYETHYLENE (MIRALAX) 17 GM PACK PO SCH ×4 (05:57→23:21)
[2021-10-13] MEDS: ceFAZolin 2000MG 2,000 MG/15 ML SYR IV SCH (05:58)
--- NOTE | 2021-10-13 09:08 | Orthopedic Progress Note ---
Date of Service October 13, 2021 Assessment & Plan (1) Postoperative back pain: Plan: Assessment lumbar seroma. Plan at this time he is doing quite well. We will maintain the LUDIN drain. If he is comfortable with plan for discharge home tomorrow. Admission and Anticipated Discharge Date Admission Date: October 12, 2021 Subjective Back pain markedly improved. He has improvement of his leg pain. He was ambulating last evening. Physical Exam Physical Exam: On exam he appears much more comfortable is eccentric to testing lower extremities. Results & Data ([facility]) Vital Signs (Past 12 Hours) Vital Signs Temp Pulse Resp BP Pulse Ox 10/13/21 07:17 36.3 C L 68 16 179/85 H 94 10/13/21 03:44 36.8 C 62 18 142/78 H 93 10/12/21 22:50 36.7 C 74 17 129/75 94
[2021-10-13] MEDS: LORATADINE 10 MG TAB PO SCH (09:34)
[2021-10-13] MEDS: lisinopril 40 MG TAB PO SCH (09:35)
[2021-10-13] MEDS: GABAPENTIN 300 MG CAP PO SCH ×3 (09:35→20:17)
[2021-10-13] MEDS: DOCUSATE SODIUM 100 MG CAP PO SCH (12:50)
[2021-10-13] MEDS: DOCUSATE SODIUM/SENNA 50/8.6MG TAB PO SCH (20:22)
[2021-10-14] MEDS: oxyCODONE HCL IR 5 MG TAB (IMMEDIATE RELEASE) PO PRN ×2 (00:06→06:17)
[2021-10-14] MEDS: POLYETHYLENE (MIRALAX) 17 GM PACK PO SCH (05:09)
[2021-10-14] MEDS: LORATADINE 10 MG TAB PO SCH (08:51)
[2021-10-14] MEDS: GABAPENTIN 300 MG CAP PO SCH (08:51)
[2021-10-14] MEDS: lisinopril 40 MG TAB PO SCH (08:51)
--- NOTE | 2021-10-14 10:12 | Discharge Summary ---
Date of Service October 14, 2021 Admission HPI Per Admitting Provider Is a 51-year-old gentleman that Dr. Gutierrez operated on September 20, 2021. Hard removal L3-S1, decompression L2-3, instrumented fusion L2-S1. Postoperatively he did well for about a week. Last week he started to have increase in symptoms. He had his normal 2-week postoperative checkup and was given oral steroids. He states this increased his pain. Shortly afterwards he went to the [facility] emergency room. Medications orally were given upon discharge. Pain is progressively worsened since. He went back to [facility] emergency room yesterday for worsening complaints. MRI was performed. And he contacted our office today was recommended he go to the emergency room. Denies fever chills. Pain is increased in pain across his surgical incision rating down his right buttock, right groin, right lateral hip. Has numbness along the right anterior lateral thigh. Symptoms typically do not radiate below the level of his knee. Left leg is asymptomatic. He has been taking oxycodone at home for pain contr ol. He has completed his oral steroids. Denies bowel or bladder changes. He has been ambulating independently at home. Principal Diagnosis Postoperative lumbar superficial seroma Discharge Data Allergies Allergy/AdvReac Type Severity Reaction Status Date / Time adhesive tape Allergy Intermediate Blisters Verified 10/11/21 14:21 with rough clear tape iron AdvReac Intermediate ELEVATES Verified 10/11/21 14:21 LIVER ENZYMES TO DANGEROUS LEVELS lorazepam [From Ativan] AdvReac Intermediate HALLUCINATI Verified 10/11/21 14:21 ONS morphine AdvReac Intermediate HALLUCINATI Verified 10/11/21 14:21 ONS Consultations 10/11/21 13:01 ED Decision to Admit Stat Procedures Performed Operation Date: 10/12/21 09:20 Actual Procedures p Incision and Drainage Lumbar Spine(Not Applicable) - Maciel Gutierrez, Hospital Course (1) Postoperative back pain: Patient was admitted with worsening postoperative back pain. We elected to take him to surgery the following day to evacuate subcutaneous seroma. He tolerated the procedure well. Postop day #1 his symptoms are markedly improved postop day #2 pain was well controlled and subsequent discharge home. We did discharge the patient with his drain in place he will follow-up in the office next week for evaluation and removal. Total Time Total Time Spent Total Time Spent (In Minutes): 20 minutes Discharge Plan Discharge Items Patient Disposition: Home - Self-Care Reason For Visit: INTRACTABLE LBP, RLE PAIN AND NUMBNESS Discharge Diagnosis: Lumbar seroma Activity: As commented below Non-emergency contact: Primary Care Provider Call non-emergency contact if: you have any medication questions Follow-up/Referrals: Sheron Michele MD [Primary Care Provider] - Diet: Regular Addtl Attending Provider Instructions: ACTIVITY RECOMMENDATIONS: SELF CARE INSTRUCTIONS AFTER THORACIC/LUMBAR FUSIONS 1. You may walk to your tolerance. It is good exercise for your legs and back. Expect some back and intermittent leg aches and pains. 2. You may perform "counter-top" level activities (make a sandwich, sun with a project, etc.). 3. No bending or lifting of more than 10 pounds or back twisting of any nature (roll like a log when turning in bed). 4. You may ride in a car for 20-30 minutes at a time. No driving until after your first visit with your doctor. 5. Frequent changes of position and restricting sitting to 30 minutes at a time will help limit the amount of back spasms and stiffness you may experience. 6. You may discontinue the use of ambulatory aids (cane, crutches, etc.) once your strength and confidence allow. 7. You may concreting supervisor the shower and let water strike your incision when you arrive home at least once daily. Do not take a tub bath, sit in a hot tub or go into a swimming pool until after your first recheck in the office. SPECIAL CARE INSTRUCTIONS: VERY IMPORTANT TO READ AND REVIEW A. Your surgical incision has been closed with a cosmetic suture under the skin that will dissolve in about 6 weeks. In 14 days, you can use a pair of clean scissors and cut the suture that is left outside of the skin at the ends of your incision. 1. The small skin tapes can be removed 7 days after surgery if they have not fallen off by that point. 2. You may keep the wound open to air as much as possible to promote healing after post-op day number 5 unless told otherwise by your doctor. 3. If you think the wound looks like it is becoming infected (redness or worsening drainage) and/or you are experiencing fever, chill or worsening back pain and muscle spasms, contact the office so that we may evaluate you as soon as possible. B. Complications are uncommon, but please contact us if you have any signs or symptoms of: 1. wound infection (fever higher than 102.5 degrees F, redness, separation of wound, drainage, or increasing pain from the incision) 2. blood clots in legs (pain, swelling, redness and warmth in legs) 3. urinary tract infection (fever higher than 102.5 degrees F, burning upon urination or increased frequency of urination) 4. nerve problems (inability to walk on your toes or heels, numbness, loss of bowel or bladder control) 5. any other symptoms that concern you C. Please call the office at if you have any concerns or questions about your operation or recovery. D. No smoking! Smoking drastically decreases the chance of a solid fusion. E. Do not take any anti-inflammatory medications (Indocin, Advil, Motrin, Aspirin, Naprosyn, etc.) as these may inhibit the chance of a solid fusion. Tylenol is okay to take for pain. MANAGING PAIN AFTER SPINAL SURGERY 1. Narcotic medication is intended for short-term use and will be provided for surgical pain. Surgical pain usually lasts for a period of 4-6 weeks. Narcotic medication includes Percocet, Vicodin, Darvocet, Tylenol #3 or Lortab. 2. Longer-term pain is more appropriately treated with non-narcotic medication such as Tylenol ES. 3. Muscle spasm is not appropriately treated with narcotics. Muscle relaxers such as Soma, Flexeril or Skelaxin can be used along with Tylenol ES. 4. Remember that we all live with some "aches and pains". This is not unusual or uncommon after an injury or as we get older. a. Back pain is expected and may include muscle spasms for 4 to 6 weeks after surgery. The pain should gradually improve. If the pain worsens for no apparent reason, please contact the office. b. Intermittent leg pain may also be experienced and should not be concerned about unless it worsens for no apparent reason. If so, please contact the office. 5. We will provide appropriate medication within the normal guidelines of their prescribed use. We will also be very cautious and aware of potential abuse and extended duration of patients' medication needs. a. Pain medications are for your comfort and to assist with sleep and rest so that the tissue can heal. They are not provided in order to return to normal activity and should not be used through the day. To do so or worsening pain at night can result from ongoing tissue damage and development of tolerance to the prescribed medicine. 6. Please allow 2-3 days to process refills. Prescriptions will not be mailed but must be picked up at the office. FOLLOW UP VISIT: Keep your scheduled follow-up appointment. Any questions, please call the office at . Pending Studies at Discharge: No Stand-Alone Forms: [facility], Smoking Cessation Medications and DC Order Prescriptions: New tramadol 50 mg tablet 50 mg PO Q6H PRN (Reason: pain, moderate) Qty: 30 RF: 0 oxycodone 5 mg tablet 5 mg PO Q6H PRN (Reason: pain, severe) Qty: 30 RF: 0 Continued lisinopril 20 mg Tablet 40 mg PO QAM RF: 0 testosterone cypionate 200 mg/mL Kit 1 dose IM DIRECTED RF: 0 gabapentin 100 mg Capsule 300 mg PO TID RF: 0 oxycodone 5 mg tablet 5 mg PO Q6H PRN (Reason: pain, severe) Qty: 30 RF: 0 tramadol 50 mg tablet 50 mg PO Q6H PRN (Reason: pain, moderate) Qty: 30 RF: 0 acetaminophen [Tylenol Extra Strength] 500 mg Tablet 1,000 mg PO BID RF: 0 loratadine 10 mg Tablet 10 mg PO QAM RF: 0 Emgality Pen 120 mg/mL Pen Injector 120 mg SUBCUT MONTHLY RF: 0 multivitamin Tablet 1 tab PO QDL RF: 0 ondansetron HCl 4 mg tablet 4 mg PO BID PRN (Reason: Nausea And Vomiting) RF: 0 docusate sodium [Colace] 100 mg Capsule 100 mg PO QDL RF: 0 Discharge Orders: Discharge Order (Routine); Ordered 10/14/21 Ordered By: Maciel Gutierrez Admission Data Admit Date/Time: 10/12/21 16:03 Attending Provider: Maciel Gutierrez Admit Provider: Maciel Gutierrez Primary Care Provider: Sheron Michele Other Providers: Maciel Gutierrez
== END 2021-10-14 11:46 | disposition home or self-care (01) | DRG 921 ==
LOC: ED 12:05 → 3N 12:05